=== PATIENT | female | born 1940 | race Caucasian/White ===

== ENCOUNTER → 2017-09-11 | Outpatient (CLI) | payer OTHER ==
[~2017-09-11] MED LIST: CHOL100010 PO; COEN1CAP PO; CYAN500T13 PO; HYDR12.55 PO; KRIL1CAP3 PO; LEVO112T2 PO; LOSA1TAB38 PO
--- NOTE | 2017-09-11 15:31 | MAMMOGRAPHY REPORT ---
BILATERAL DIGITAL SCREENING MAMMOGRAM TOMOSYNTHESIS WITH CAD: 09/11/2017 CLINICAL HISTORY: Routine screening examination. History of bilateral breast augmentation. TECHNIQUE: Bilateral CC and MLO views of the breasts with and without implant displacement views wer e obtained. Tomosynthesis was also performed on the implant displaced views. Current study was also evaluated with a Computer Aided Detection (CAD) system. COMPARISON: Comparison is made to exams dated: 08/09/2016 mammogram, 07/22/2015 mammogram, 07/14/2014 mammogram, 07/03/2013 mammogram, 07/02/2012 ultrasound, and 07/02/2012 mammogram - [facility]. BREAST COMPOSITION: The tissue of both breasts is heterogeneously dense, which may obscure small mas ses. FINDINGS: Bilateral subglandular silicone implants are stable comparing to prior exams. There are a few benign rim calcifications in the breasts. No new suspicious mass, architectural distortion or cl uster of microcalcifications is seen. IMPRESSION: ACR BI-RADS CATEGORY 1: NEGATIVE There is no mammographic evidence of malignancy. A 1 year screening mammogram is recommended. The pa tient will receive written notification of the results. Approximately 10% of breast cancers are not detected with mammography. A negative mammographic report should not delay biopsy if a clinically suggestive mass is present. Raegan Chilel M.D. ay/:09/11/2017 14:14:52 Legal Billing Specialist: Elsi PATTERSON)(Evon), [facility] letter sent: Normal 1/2 BI-RADS Code: ACR BI-RADS Category 1: Negative
== END | disposition home or self-care (01) ==
LOC: C.MAMM 11:59
PROVIDERS: ATTEND Internal Medicine
DX: Z12.31 Encounter for screening mammogram for malignant neoplasm of breast (principal)

== ENCOUNTER 2024-06-26 06:56 | Observation (INO) ==
[2024-06-26 07:50] LABS: Hematocrit (blood only) 34.2 % (37.0-47.0); Hemoglobin 11.8 g/dl (12.0-16.0); Mean Corpuscular Hemoglobin 31.5 pg (25.0-34.0); Mean Corpuscular Hgb Conc 34.5 g/dL (32.0-36.0); Mean Corpuscular Volume 91.2 fL (80.0-100.0); Platelet Count 159 K/uL (130-400); RDW Coefficient of Variation 17.7 % (11.5-14.5); RDW Standard Deviation 58.8 fL (36.4-46.3); Red Blood Count 3.75 M/uL (4.20-5.40); White Blood Count 5.41 K/ul (4.8-10.8)
[2024-06-26] MEDS: SODIUM CHLORIDE 0.9% 500 ML IV ONE (07:53)
[2024-06-26 07:55] LABS: Albumin Globulin Ratio 1.6 (0.9-2); Albumin Level 3.6 gm/dl (3.4-5.0); BUN Creatinine Ratio 18.1 (10-20); Bilirubin,Total 0.7 mg/dl (0.2-1.0); Calcium 8.2 mg/dl (8.6-10.3); Creatinine Clr Calc Pharmacy 37.7 ml/min; Globulin 2.3 gm/dl (2.5-4.0); Magnesium 1.9 mg/dl (1.7-2.4); Total Protein 5.9 gm/dl (6.0-8.3)
--- NOTE | 2024-06-26 07:55 | CT Scan Report ---
CT head/brain wo con CLINICAL HISTORY: fall, weak, dizzy Technique: Contiguous axial CT images of the head were acquired from the base of the skull to the maksim myles without intravenous contrast administration. Images were viewed in brain, subdural and [facility] Automated dose lowering techniques and/or adjustment according to patient size were utilized for this exam. Comparison: Comparison is made to CT head 08/13/2016 Findings: Areas of decreased attenuation are present in the periventricular and subcortical white matter bilate rally consistent with small vessel ischemic disease. Generalized cerebral atrophy with commensurate e nlargement of the ventricles, sulci, and cisterns is also present. There is no acute intracranial hem orrhage or evidence of acute territorial infarction. No shift of the midline structures, mass effect, or extra-axial abnormalities are shown. Atherosclerotic calcifications are present in the intracran ial segments of the internal carotid arteries. Imaged portions of the paranasal sinuses and mastoid air cells are clear. The orbits appear normal. There are no acute fractures of the calvaria or scalp swelling. Impression: No acute intracranial hemorrhage, no evidence of acute territorial infarction or other acute intracra nial disease process. ACT 112: Negative or not required by law. Electronically signed by: Phuc Odonnell M.D. 06/26/2024 7:54 AM
--- NOTE | 2024-06-26 07:55 | XRay Report ---
XR chest 1V portable CLINICAL HISTORY: weakness TECHNIQUE: Single frontal radiograph of the chest was obtained. Comparison: Comparison is made to chest radiograph 04/21/2024 FINDINGS: A port catheter is seen. The cardiomediastinal silhouette is normal. The lungs are clear. No evidence of pleural effusion or pneumothorax. IMPRESSION: No acute chest disease. ACT 112: Negative or not required by law. Electronically signed by: Phuc Odonnell M.D. 06/26/2024 7:54 AM
[2024-06-26 08:01] LABS: Troponin I High Sensitivity 12.7 pg/ml (0-14)
--- NOTE | 2024-06-26 08:01 | Emergency Department Note ---
Impression & Plan UTI (urinary tract infection), Triple negative breast cancer, Fall, Status post chemotherapy ED Provider Note CHIEF COMPLAINT: Fall, weakness HISTORY OF PRESENT ILLNESS: This 83-year-old female patient past medical history of breast cancer, hypothyroidism, hypertension presents to the emergency department with complaints of a fall. Patient's states that she was incontinent of urine earlier today. He went into the other room to speak on the phone as there was no front desk receptionist in their bedroom. He heard a crash and realized that the patient had gotten out of bed and tried to go to the bathroom without him. There was urine on the floor and he imagines that the patient slept on the wet surface. She did have a chemo treatment yesterday. There is no fever recently. She has had a decreased oral intake but no vomiting or diarrhea. states "this is the worst" that she has had it since chemo began. He does not believe that the patient hit his head although he did not witness the fall. She is not currently on blood thinners. REVIEW OF SYSTEMS: A review of systems was performed with positives and pertinent negatives listed in the history of present illness. 10 systems were reviewed and are otherwise negative. ALLERGIES: see below MEDICATIONS: see below PMH: see below SOCIAL HISTORY: see below DDx: Dehydration, metabolic abnormality, UTI, PE, mechanical fall, seizure, intracranial mass, intracranial hemorrhage among others. PHYSICAL EXAM: Vital signs reviewed. General: elderly, somewhat ill-appearing 83-year-old female, in no significant distress. HEENT: No scleral icterus, PERRLA, neck supple. dry mucous membranes Cardiovascular: Regular rate and rhythm, no extra sounds. Pulmonary: Clear to auscultation bilaterally, normal work of breathing. Abdomen: Soft, nontender, nondistended, positive bowel sounds. Musculoskeletal: Atraumatic, no peripheral edema. Nontender to palpation over the cervical, thoracic and lumbar spine. No pain to pelvic rocking Neurologic: Patient somnolent but awake. Answers questions appropriately. speech is clear. Skin: Warm, dry, no rash EMERGENCY DEPARTMENT COURSE/MDM: this patient was evaluated and appeared to be in no significant distress. IV access was obtained and laboratory work was drawn. The patient was placed on the cardiac exercise physiologist and noted to be in a normal sinus rhythm. IV access was obtained and laboratory work was drawn. patient was hydrated with normal saline solution due to tachycardia. Laboratory work is fairly reassuring, magnesium and potassium are within normal range. UA is positive for infection. The patient was medicated with IV ceftriaxone. CT imaging of the head was performed and reveals no evidence of acute intracranial abnormality.Given the patient's weakness and fall with no UTI, patient's case was discussed with the hospitalist service was agreed to evaluate the patient for admission and further management. Patient's was at the bedside and made aware of the plan and agreed. MONITORING: An order for cardiac monitoring was placed and the patient is noted to be in a sinus tachycardia at 110 beats per minute. RADIOLOGY: chest x-ray to my interpretation reveals no evidence of focal lung consolidation or failure. HEAD CT: Impression: No acute intracranial hemorrhage, no evidence of acute territorial infarction or other acute intracranial disease process. EKG: To my interpretation reveals a sinus tachycardia at 111 bpm, normal ST segments, no evidence of acute ischemia. QTc of 435. DISPOSITION: Admission Past Med/Surg History Problem List (Updated 06/26/24 @ 15:03 by Lima Conner MD) Status post chemotherapy (Acute) Tachycardia Transaminitis Fall (Acute) UTI (urinary tract infection) (Acute) Port-A-Cath in place (04/21/24) Insertion Access Port with Fluroscopy(Not Applicable) - Mateo Mahan, DO Breast implant status Arthritis Triple negative breast cancer (Acute) Encounter for pre-operative examination Hypertension (Chronic) Hypothyroid (Chronic) Medical History Triple negative breast cancer Left Arthritis Hypothyroid Hypertension Cervical spinal stenosis s/p steroid injection Surgical History S/P tubal ligation H/O liposuction of abdomen Hx of bilateral cataract extraction (03/2023) History of ankle surgery screw in right ankle Hx of colonoscopy 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 knee replacement (2002) History of breast mammoplasty (1979) b/l Family History Mother Breast cancer Diabetes Hypertension Grandmother (Maternal) Breast cancer Father Colorectal cancer Hypertension Grandmother (Paternal) Colorectal cancer Grandfather (Paternal) Lung cancer Other No family history of adverse response to anesthesia Denies family history of Ovarian cancer Prostate cancer Myocardial infarction Social History Smoking Status: Never smoker Second Hand Exposure: No; Do You Dip or Chew Tobacco: No; Hx Alcohol Use: Yes (Socially ) Alcohol type: wine Alcohol Intake Frequency: Monthly or Less Hx Substance Use: No Preferred Language: Arabic Communication Ability: Effective Molecular Physicist Required: No Beliefs That Will Affect Care: Zoroastrian Zoroastrian Beliefs: moravian marital status: Current Living Situation: Spouse current occupational status: retired How many Children do You have: 3 Feels Safe at Home: Yes Childhood Exposure to Second-Hand Smoke: No Diet: regular during the past year weight has: remained stable Dental Care, Regularly: Yes Physical Activity Frequency: 3-4 Times per Week Seatbelt Use: always Sunscreen Use: Yes Assistive Devices: None Allergies Allergies Allergy/AdvReac Type Severity Reaction Status Date / Time lisinopril AdvReac Mild cough Verified 05/26/24 09:23 surgical glue AdvReac Uncoded 05/26/24 09:30 Home Meds Home Medications Medication Instructions Recorded Confirmed cholecalciferol (vitamin D3) 25 25 mcg PO QAM 02/14/23 06/26/24 mcg (1,000 unit) tablet (Vitamin D3) coenzyme Q10 200 mg capsule (Co 200 mg PO QAM 02/14/23 06/26/24 Q-10) levothyroxine 112 mcg tablet 112 mcg PO QAM 02/14/23 06/26/24 losartan 100 mg tablet 100 mg PO QAM 02/14/23 06/26/24 multivitamin 1 tab PO QAM 02/14/23 06/26/24 acetaminophen 500 mg tablet 500 mg PO Q8H PRN Pain 04/17/24 06/26/24 ibuprofen 200 mg tablet 200 mg PO Q6H PRN Pain 04/17/24 06/26/24 dexamethasone 4 mg tablet 4 mg PO DIRECTED 06/26/24 06/26/24 diphenoxylate-atropine 2.5 1 tab PO QID PRN Diarrhea 06/26/24 06/26/24 mg-0.025 mg tablet ondansetron 8 mg disintegrating 8 mg PO Q8H PRN n/v 06/26/24 06/26/24 tablet potassium chloride 20 mEq 40 meq PO DAILY 06/26/24 06/26/24 tablet,extended release prednisone 20 mg tablet 60 mg PO DAILY 06/26/24 06/26/24 prochlorperazine maleate 10 mg 10 mg PO Q6H PRN n/v 06/26/24 06/26/24 tablet Previous Rx's Medication Instructions Recorded dicyclomine 20 mg tablet 20 mg PO QID PRN abdominal pain 05/26/24 #60 tabs Results & Data (ED) Vital Signs Vital Signs - 24 hr 06/26/24 07:07 06/26/24 07:07 06/26/24 07:21 Temperature 37.5 C Temperature Source Oral Oral Pulse Rate 110 H 109 H Pulse Rate from SpO2 Sensor 109 H Respiratory Rate 15 Respiratory Effort / Characteristics Non-Labored Spontaneous Respiratory Depth Normal Blood Pressure 137/83 Blood Pressure Mean 101 Pulse Oximetry 90 90 Oxygen Delivery Method Room Air Sepsis Recent Fever Within 48 Hours No Sepsis New/Unexplained Change in Mental Status N/A Sepsis Action Taken by Nursing No Action Required 06/26/24 07:25 06/26/24 07:54 06/26/24 08:18 Temperature Temperature Source Pulse Rate 102 H 101 H Pulse Rate from SpO2 Sensor 103 H Respiratory Rate Respiratory Effort / Characteristics Respiratory Depth Blood Pressure Blood Pressure Mean Pulse Oximetry 90 91 Oxygen Delivery Method Room Air Sepsis Recent Fever Within 48 Hours Sepsis New/Unexplained Change in Mental Status Sepsis Action Taken by Nursing 06/26/24 08:18 06/26/24 08:30 06/26/24 08:30 Temperature Temperature Source Pulse Rate 101 H Pulse Rate from SpO2 Sensor 101 H Respiratory Rate Respiratory Effort / Characteristics Respiratory Depth Blood Pressure 127/78 127/78 Blood Pressure Mean 88 88 Pulse Oximetry 94 Oxygen Delivery Method Sepsis Recent Fever Within 48 Hours Sepsis New/Unexplained Change in Mental Status Sepsis Action Taken by Nursing 06/26/24 08:30 06/26/24 08:54 06/26/24 08:57 Temperature Temperature Source Pulse Rate 102 H Pulse Rate from SpO2 Sensor 102 H 100 H 99 H Respiratory Rate 24 Respiratory Effort / Characteristics Respiratory Depth Blood Pressure Blood Pressure Mean Pulse Oximetry 95 95 94 Oxygen Delivery Method Sepsis Recent Fever Within 48 Hours Sepsis New/Unexplained Change in Mental Status Sepsis Action Taken by Nursing 06/26/24 09:00 06/26/24 09:00 06/26/24 09:00 Temperature Temperature Source Pulse Rate Pulse Rate from SpO2 Sensor Respiratory Rate Respiratory Effort / Characteristics Respiratory Depth Blood Pressure 122/78 122/78 122/78 Blood Pressure Mean 95 95 95 Pulse Oximetry Oxygen Delivery Method Sepsis Recent Fever Within 48 Hours Sepsis New/Unexplained Change in Mental Status Sepsis Action Taken by Nursing 06/26/24 09:03 06/26/24 09:18 06/26/24 09:21 Temperature Temperature Source Pulse Rate Pulse Rate from SpO2 Sensor 101 H 101 H 100 H Respiratory Rate Respiratory Effort / Characteristics Respiratory Depth Blood Pressure Blood Pressure Mean Pulse Oximetry 95 95 95 Oxygen Delivery Method Sepsis Recent Fever Within 48 Hours Sepsis New/Unexplained Change in Mental Status Sepsis Action Taken by Nursing 06/26/24 09:24 06/26/24 09:30 06/26/24 09:30 Temperature Temperature Source Pulse Rate Pulse Rate from SpO2 Sensor 101 H Respiratory Rate Respiratory Effort / Characteristics Respiratory Depth Blood Pressure 130/77 130/77 Blood Pressure Mean 95 95 Pulse Oximetry 96 Oxygen Delivery Method Sepsis Recent Fever Within 48 Hours Sepsis New/Unexplained Change in Mental Status Sepsis Action Taken by [facility] Medications Current Medication List: was personally reviewed by me Laboratory Data Attestation: I reviewed the patient's lab results. 06/26/24 07:24 06/26/24 07:24 Lab Results 06/26/24 06/26/24 Range/Units 07:24 08:45 WBC 5.41 (4.8-10.8) K/ul RBC 3.75 L (4.20-5.40) M/uL Hgb 11.8 L (12.0-16.0) g/dl Hct 34.2 L (37.0-47.0) % MCV 91.2 (80.0-100.0) fL MCH 31.5 (25.0-34.0) pg MCHC 34.5 (32.0-36.0) g/dL RDW Std Deviation 58.8 H (36.4-46.3) fL RDW Coeff of Herminio 17.7 H (11.5-14.5) % Plt Count 159 (130-400) K/uL MPV 10.0 (9.4-12.4) fL Immature Gran % (Auto) 1.3 % Neut % (Auto) 89.8 % Lymph % (Auto) 7.0 % Morrill % (Auto) 1.5 % Eos % (Auto) 0.0 % Baso % (Auto) 0.4 % Neut # (Auto) 4.86 (1.40-6.50) K/uL Lymph # (Auto) 0.38 L (1.20-3.40) K/uL Morrill # (Auto) 0.08 L (0.11-0.59) K/uL Eos # (Auto) 0.00 (0.00-0.50) K/uL Baso # (Auto) 0.02 (0.00-0.20) K/uL Immature Gran # (Auto) 0.07 (0.01-0.20) K/uL Toxic Vacuolation 1+ Polychromasia 1+ Tear Drop Cells 1+ Sodium 135 L (136-145) mmol/L Potassium 4.0 (3.5-5.1) mmol/L Chloride 101 (98-107) mmol/L Carbon Dioxide 25 (21-32) mmol/L Anion Gap 9 (3-11) BUN 19 (6-23) mg/dl Creatinine 1.05 (0.6-1.2) mg/dl Est Cr Clr Drug Dosing 37.7 ml/min eGFR 53.38 BUN/Creatinine Ratio 18.1 (10-20) Glucose 122 H (70-99(Fasting)) mg/dl Calcium 8.2 L (8.6-10.3) mg/dl Magnesium 1.9 (1.7-2.4) mg/dl Total Bilirubin 0.7 (0.2-1.0) mg/dl AST 174 H (13-39) U/L ALT 223 H (7-52) U/L Alkaline Phosphatase 207 H (34-104) U/L Troponin I High Sens 12.7 (0-14) pg/ml Total Protein 5.9 L (6.0-8.3) gm/dl Albumin 3.6 (3.4-5.0) gm/dl Globulin 2.3 L (2.5-4.0) gm/dl Albumin/Globulin Ratio 1.6 (0.9-2) TSH 7.858 H (0.300-4.500) uIu/ml Free T4 1.05 (0.61-1.60) ng/dl Urine Color Yellow Urine Appearance Cloudy A (Clear) Urine pH 7.5 (4.5-7.5) Ur Specific [place] 1.015 (1.000-1.030) Urine Protein 2+ H (Negative) Urine Glucose (UA) Negative (Negative) Urine Ketones Negative (Negative) Urine Blood Trace H (Negative) Urine Nitrite Positive A (Negative) Urine Bilirubin Negative (Negative) Urine Urobilinogen Negative (Negative) Ur Leukocyte Esterase 2+ H (Negative) Urine WBC (Auto) >50 H (0-5) /hpf Urine RBC (Auto) 3-5 H (0-2) /hpf U Hyaline Cast (Auto) 0-2 (0-2) /lpf U Epithel Cells (Auto) 0-2 (0-2) /hpf Urine Bacteria (Auto) 4+ H (None Seen) Administered Medications Discontinued Medications Sodium Chloride (Nss) 500 mls @ 999 mls/hr IV .Q31M ONE Stop: 06/26/24 08:06 Last Infusion: 06/26/24 09:24 Dose: Infused Documented By: Admin: 06/26/24 07:53 Dose: 999 mls/hr Documented By: KORIN Ceftriaxone Sodium (Rocephin) 1,000 mg in 50 mls @ 100 mls/hr IV NOW STA Stop: 06/26/24 09:42 Last Infusion: 06/26/24 10:09 Dose: Infused Documented By: Admin: 06/26/24 09:24 Dose: 100 mls/hr Documented By: KORIN Imaging Data Radiologist's Impression: Chest X-Ray 06/26/24 07:17 XR chest 1V portable CLINICAL HISTORY: weakness TECHNIQUE: Single frontal radiograph of the chest was obtained. Comparison: Comparison is made to chest radiograph 04/21/2024 FINDINGS: A port catheter is seen. The cardiomediastinal silhouette is normal. The lungs are clear. No evidence of pleural effusion or pneumothorax. IMPRESSION: No acute chest disease. ACT 112: Negative or not required by law. Electronically signed by: Phuc Odonnell M.D. 06/26/2024 7:[address] 06/26/24 07:18 CT head/brain wo con CLINICAL HISTORY: fall, weak, dizzy Technique: Contiguous axial CT images of the head were acquired from the base of the skull to the vertex without intravenous contrast administration. Images were viewed in brain, subdural and bone windows. Automated dose lowering techniques and/or adjustment according to patient size were utilized for this exam. Comparison: Comparison is made to CT head 08/13/2016 Findings: Areas of decreased attenuation are present in the periventricular and subcortical white matter bilaterally consistent with small vessel ischemic disease. Generalized cerebral atrophy with commensurate enlargement of the ventricles, sulci, and cisterns is also present. There is no acute intracranial hemorrhage or evidence of acute territorial infarction. No shift of the midline structures, mass effect, or extra-axial abnormalities are shown. Atherosclerotic calcifications are present in the intracranial segments of the internal carotid arteries. Imaged portions of the paranasal sinuses and mastoid air cells are clear. The orbits appear normal. There are no acute fractures of the calvaria or scalp swelling. Impression: No acute intracranial hemorrhage, no evidence of acute territorial infarction or other acute intracranial disease process. ACT 112: Negative or not required by law. Electronically signed by: Phuc Odonnell M.D. 06/26/2024 7:54 AM Discharge Plan Visit Data Chief Complaint: Fall Stated Complaint: FALL, WEAKNESS, CONFUSION ED Provider: Lima Conner Discharge Problem: UTI (urinary tract infection), Triple negative breast cancer, Fall, Status post chemotherapy Patient Disposition: Admitted As Inpatient Discharge Instructions Interventions: ED Discharge Assessment Last Done: 06/26/24 14:34 Discharge Problem: UTI (urinary tract infection) Qualifiers: Urinary tract infection type: acute cystitis Hematuria presence: without hematuria Qualified Code(s): N30.00 - Acute cystitis without hematuria Fall Qualifiers: Encounter type: initial encounter Qualified Code(s): W19.XXXA - Unspecified fall, initial encounter
[2024-06-26 08:11] LABS: Thyroid Stimulating Hormone 7.858 uIu/ml (0.300-4.500)
[2024-06-26 08:25] LABS: Basophils # (auto) 0.02 K/uL (0.00-0.20); Basophils % (auto) 0.4 %; Immature Granulocytes # (auto) 0.07 K/uL (0.01-0.20); Immature Granulocytes % (auto) 1.3 %; Lymphocytes # (auto) 0.38 K/uL (1.20-3.40); Monocytes # (auto) 0.08 K/uL (0.11-0.59); Monocytes % (auto) 1.5 %; Neutrophils # (auto) 4.86 K/uL (1.40-6.50); Neutrophils % (auto) 89.8 %; Polychromasia 1+; Tear Drop Cells 1+; Toxic Vacuolation 1+
[2024-06-26 08:46] LABS: T4 Free Thyroxine 1.05 ng/dl (0.61-1.60)
[2024-06-26 09:03] LABS: Appearance Urine Cloudy (Clear); Bacteria Urine Automated 4+ (None Seen); Bilirubin Urine Negative (Negative); Blood Urine Trace (Negative); Cast Urine Automated 0-2 /lpf (0-2); Color Urine Yellow; Epithelial Cell Urine Auto 0-2 /hpf (0-2); Glucose Urine UA Negative (Negative); Ketones Urine Negative (Negative); Leukocyte Esterase Urine 2+ (Negative); Nitrite Urine Positive (Negative); Protein Urine 2+ (Negative); Specific Gravity Urine 1.015 (1.000-1.030); Urobilinogen Urine Negative (Negative); WBC Urine Automated >50 /hpf (0-5); pH Urine 7.5 (4.5-7.5)
[2024-06-26] MEDS: cefTRIAXone SODIUM 1,000 MG/50 ML BAG IV STA (09:24)
--- NOTE | 2024-06-26 10:39 | History & Physical Report ---
Date of Service June 26, 2024 Assessment & Plan (1) UTI (urinary tract infection): Plan: Patient sustained a ground-level fall on the morning of 06/26; new onset urinary continence UA positive on arrival No leukocytosis; afebrile; however patient is currently undergoing chemotherapy; immunocompromised status No prior UCx available Rocephin 1000 mg IV q24h In the setting of IVF national shortage, will encourage p.o. fluid intake Follow current UCx A.m. CBC, CMP (2) Fall: Plan: On 06/26; no LOC or head strike; not on blood thinners Unlikely syncope, but if concern for arrythmias Head CT without acute findings on arrival Only new medication, prednisone 60mg daily, was started on 06/18 for upset stomach; unclear if contributory Patient reports she was planning to start taper; will dose reduce to prednisone 40mg daily Weakness due to chemotherapy also likely contributory Patient is a high fall risk, and gets up to use the bathroom approximately every hour (per nursing) Communication order: Bed alarm Orthostatic vitals ordered, pending PT/OT evaluations appreciated Fall precautions (3) Triple negative breast cancer: Plan: Newly diagnosed; dx in 02/2024 Started chemotherapy on 04/30/2024; follows with the CCP Carboplatin, paclitaxel, and pembrolizumab; most recent chemo was on 06/25 (just prior to fall) (4) Transaminitis: Plan: Elevated on arrival Patient denies hx of prior liver issues; ? secondary to chemotherapy Liver ultrasound ordered, pending Trend CMP (5) Tachycardia: Plan: HR 111 bpm on arrival Suspect secondary to #1; ?dehydration Troponin WNL Clinically, patient denies chest pain, chest palpitations, or SOB Continuous telemetry monitoring (6) Hypothyroid: Plan: TSH elevated on arrival; however, improving from prior Free T4 WNL Prior PCP notes from May recommended increasing levothyroxine if uncontrolled TSH or not improving Continue to monitor with TSH/Free T4 follow up outpatient (7) Port-A-Cath in place: (8) Hypertension: Plan Disposition: Admit to MedSurg telemetry DNR/DNI Regular diet VTE PPx: High risk given cancer/chemo; despite patient's high fall risk, will place on heparin 5000u BID starting the evening of 06/26 History of Present Illness Chief Complaint: Fall Primary Care Provider: DO Agustin Johnsony is an 83-year-old female with PMH of triple negative breast cancer, HTN, hypothyroidism, and arthritis. Patient came in on the morning of 06/26 from home for a ground-level fall. Her (Martha) is at the bedside and provides most the history. Has reports that the patient fell at approximately 0500 in the bathroom. This was an unwitnessed fall; patient denied head strike at the time. No LOC. Not on blood thinners. She also had an episode of new onset urinary incontinence in the bathroom, and believes she might of fallen off the toilet onto the ground. Patient is currently undergoing chemotherapy for her triple negative breast cancer, and last had chemotherapy yesterday. reports that she has had a "downward slide" since the chemo yesterday. No fevers reported at home. However, the patient does endorse significant dizziness/lightheadedness when she is up on her feet as well as balance issues. She denies any syncope at home. Patient denies history of UTIs, and currently denies any burning with urination, but reports that the urinary continence is new for her. No PMH of DVT/PE. Patient reports that she did not take her regular morning medications today. Patient manages her own medicine at home. Only recent change was that she was started on prednisone last week for nausea, and reports she has been taking 60 mg daily, but is currently planning to taper down to 40 mg daily. 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 Patient is tachycardic at 102 bpm at time of admission; vitals otherwise stable. ED course: NSS 500 mL IV Rocephin 1000 mg IV ROS: Patient endorses dizziness/lightheadedness with walking, ambulatory dysfunction, feeling off balance, diarrhea (which attributes to regular medications for chemo), increased urinary frequency, and new onset urinary continence. Patient denies fever, chills, night sweats, headache, chest pain, chest palpitations, heart racing, SOB, cough, abdominal pain, N/V, burning with urination, dysuria, blood in the urine or stool, or numbness or tingling in the arms or legs. Per nursing staff, patient has been getting up to go to the bathroom every hour or so. Allergies Allergy/AdvReac Type Severity Reaction Status Date / Time lisinopril AdvReac Mild cough Verified 05/26/24 09:23 moxifloxacin AdvReac Unknown Unknown Verified 06/26/24 14:50 surgical glue AdvReac Unknown Unknown Uncoded 06/26/24 14:50 Home Medications Medication Instructions Recorded Confirmed Type cholecalciferol (vitamin D3) 25 25 mcg PO QAM 02/14/23 06/26/24 History mcg (1,000 unit) tablet (Vitamin D3) coenzyme Q10 200 mg capsule (Co 200 mg PO QAM 02/14/23 06/26/24 History Q-10) levothyroxine 112 mcg tablet 112 mcg PO QAM 02/14/23 06/26/24 History losartan 100 mg tablet 100 mg PO QAM 02/14/23 06/26/24 History multivitamin 1 tab PO QAM 02/14/23 06/26/24 History acetaminophen 500 mg tablet 500 mg PO Q8H PRN Pain 04/17/24 06/26/24 History ibuprofen 200 mg tablet 200 mg PO Q6H PRN Pain 04/17/24 06/26/24 History dicyclomine 20 mg tablet 20 mg PO QID PRN abdominal pain 05/26/24 06/26/24 Rx #60 tabs dexamethasone 4 mg tablet 4 mg PO DIRECTED 06/26/24 06/26/24 History diphenoxylate-atropine 2.5 1 tab PO QID PRN Diarrhea 06/26/24 06/26/24 History mg-0.025 mg tablet ondansetron 8 mg disintegrating 8 mg PO Q8H PRN n/v 06/26/24 06/26/24 History tablet potassium chloride 20 mEq 40 meq PO DAILY 06/26/24 06/26/24 History tablet,extended release prednisone 20 mg tablet 60 mg PO DAILY 06/26/24 06/26/24 History prochlorperazine maleate 10 mg 10 mg PO Q6H PRN n/v 06/26/24 06/26/24 History tablet Past Med/Surg History Problem List (Updated 06/26/24 @ 15:03 by Lima Conner MD) Status post chemotherapy (Acute) Tachycardia Transaminitis Fall (Acute) UTI (urinary tract infection) (Acute) Port-A-Cath in place (04/21/24) Insertion Access Port with Fluroscopy(Not Applicable) - Mateo Mahan, DO Breast implant status Arthritis Triple negative breast cancer (Acute) Encounter for pre-operative examination Hypertension (Chronic) Hypothyroid (Chronic) Medical History Triple negative breast cancer Left Arthritis Hypothyroid Hypertension Cervical spinal stenosis s/p steroid injection Surgical History S/P tubal ligation H/O liposuction of abdomen Hx of bilateral cataract extraction (03/2023) History of ankle surgery screw in right ankle Hx of colonoscopy 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 knee replacement (2002) History of breast mammoplasty (1979) b/l Family History Mother Breast cancer Diabetes Hypertension Grandmother (Maternal) Breast cancer Father Colorectal cancer Hypertension Grandmother (Paternal) Colorectal cancer Grandfather (Paternal) Lung cancer Other No family history of adverse response to anesthesia Denies family history of Ovarian cancer Prostate cancer Myocardial infarction Social History Smoking Status: Never smoker Second Hand Exposure: No; Do You Dip or Chew Tobacco: No; Hx Alcohol Use: Yes (Socially ) Alcohol type: wine Alcohol Intake Frequency: Monthly or Less Hx Substance Use: No Preferred Language: Italian Communication Ability: Effective Masonry Instructor Required: No Beliefs That Will Affect Care: Adventist Adventist Beliefs: moravian marital status: Current Living Situation: Spouse current occupational status: retired How many Children do You have: 3 Feels Safe at Home: Yes Childhood Exposure to Second-Hand Smoke: No Diet: regular during the past year weight has: remained stable Dental Care, Regularly: Yes Physical Activity Frequency: 3-4 Times per Week Seatbelt Use: always Sunscreen Use: Yes Assistive Devices: None Review of Systems Review of Systems: See HPI above Physical Exam Physical Exam: General: Patient is in mild distress; she reports she needs to go to the bathroom and is eager to get up; unsteady on her feet; at bedside; non- toxic appearing; well-nourished; cooperative; SpO2 96% on RA HEENT: normocephalic, atraumatic; no scleral icterus; PERRLA; vision and hearing grossly intact Neck: supple; trachea midline Skin: warm, dry without signs of tenting; no cyanosis; no rashes, bruising, lesions, or erythema noted CV: Port in place without signs of drainage or infection; chest wall NTP; RR, tachycardic around 110bpm; S1/S2 normal; no murmurs/rubs/gallops; pulses intact and symmetric at radial, DP, and PT Lungs: no acute respiratory distress; symmetrical chest wall expansion; clear breath sounds across all lung prater w/o adventitious sounds; no wheezing ABD: Soft, NTP; BS present; no rebound/guarding; no distention : Negative suprapubic tenderness Back: Negative CVA tenderness bilaterally MSK: no tics or fasciculations; no edema noted in the LEs b/l, nonerythematous Neuro: A&Ox3; normal mood and affect; fluent speech; no focal deficits; sensation grossly intact and symmetric in the lower extremities bilaterally Results & Data Results & Data Vital Signs (Past 12 Hours) Vital Signs Temp Pulse Resp BP Pulse Ox O2 Del Method 06/26/24 09:30 130/77 06/26/24 09:30 130/77 06/26/24 09:24 96 06/26/24 09:21 95 06/26/24 09:18 95 06/26/24 09:03 95 06/26/24 09:00 122/78 06/26/24 09:00 122/78 06/26/24 09:00 122/78 06/26/24 08:57 94 06/26/24 08:54 95 06/26/24 08:30 102 H 24 95 06/26/24 08:30 127/78 06/26/24 08:30 127/78 06/26/24 08:18 101 H 94 06/26/24 08:18 101 H 06/26/24 07:54 102 H 91 06/26/24 07:25 90 Room Air 06/26/24 07:21 109 H 90 06/26/24 07:07 37.5 C 110 H 15 137/83 90 Room Air Laboratory Results Abnormal lab results 06/26/24 06/26/24 Range/Units 07:24 08:45 RBC 3.75 L (4.20-5.40) M/uL Hgb 11.8 L (12.0-16.0) g/dl Hct 34.2 L (37.0-47.0) % RDW Std Deviation 58.8 H (36.4-46.3) fL RDW Coeff of Herminio 17.7 H (11.5-14.5) % Lymph # (Auto) 0.38 L (1.20-3.40) K/uL [place] # (Auto) 0.08 L (0.11-0.59) K/uL Sodium 135 L (136-145) mmol/L Glucose 122 H (70-99(Fasting)) mg/dl Calcium 8.2 L (8.6-10.3) mg/dl AST 174 H (13-39) U/L ALT 223 H (7-52) U/L Alkaline Phosphatase 207 H (34-104) U/L Total Protein 5.9 L (6.0-8.3) gm/dl Globulin 2.3 L (2.5-4.0) gm/dl TSH 7.858 H (0.300-4.500) uIu/ml Urine Appearance Cloudy A (Clear) Urine Protein 2+ H (Negative) Urine Blood Trace H (Negative) Urine Nitrite Positive A (Negative) Ur Leukocyte Esterase 2+ H (Negative) Urine WBC (Auto) >50 H (0-5) /hpf Urine RBC (Auto) 3-5 H (0-2) /hpf Urine Bacteria (Auto) 4+ H (None Seen) Diagnostic Findings Chest X-Ray 06/26/24 07:17 XR chest 1V portable CLINICAL HISTORY: weakness TECHNIQUE: Single frontal radiograph of the chest was obtained. Comparison: Comparison is made to chest radiograph 04/21/2024 FINDINGS: A port catheter is seen. The cardiomediastinal silhouette is normal. The lungs are clear. No evidence of pleural effusion or pneumothorax. IMPRESSION: No acute chest disease. ACT 112: Negative or not required by law. Electronically signed by: Phuc Odonnell M.D. 06/26/2024 7:[address] 06/26/24 07:18 CT head/brain wo con CLINICAL HISTORY: fall, weak, dizzy Technique: Contiguous axial CT images of the head were acquired from the base of the skull to the vertex without intravenous contrast administration. Images were viewed in brain, subdural and bone windows. Automated dose lowering techniques and/or adjustment according to patient size were utilized for this exam. Comparison: Comparison is made to CT head 08/13/2016 Findings: Areas of decreased attenuation are present in the periventricular and subcortical white matter bilaterally consistent with small vessel ischemic disease. Generalized cerebral atrophy with commensurate enlargement of the ventricles, sulci, and cisterns is also present. There is no acute intracranial hemorrhage or evidence of acute territorial infarction. No shift of the midline structures, mass effect, or extra-axial abnormalities are shown. Atherosclerotic calcifications are present in the intracranial segments of the internal carotid arteries. Imaged portions of the paranasal sinuses and mastoid air cells are clear. The orbits appear normal. There are no acute fractures of the calvaria or scalp swelling. Impression: No acute intracranial hemorrhage, no evidence of acute territorial infarction or other acute intracranial disease process. ACT 112: Negative or not required by law. Electronically signed by: Phuc Odonnell M.D. 06/26/2024 7:54 AM ECG Additional Comments: ECG revealed sinus tachycardia at 111 bpm; QTc 435 Code Status & VTE Plan Code Status DNR/DNI (Discussed with both patient and patient's in the room) VTE Prophylaxis Plan VTE Prophylaxis will be ordered: Yes Supervising Physician Co-Signing Physician Notes Patient seen and examined, chart reviewed, case discussed with Robby Pfeiffer and I agree with the assessment and plan as above except as otherwise noted Labs and images reviewed PG Care Time/CCT Total # of Minutes Spent Total Time Spent with Patient: Total time spent is greater than 50% in coordination of care (as documented) at patient's floor/unit and/or counseling patient: Coding [place] [address] INT INP/OBS CARE 3/75MIN Patient Type Established Medical Decision Making High Complexity Diagnoses UTI (urinary tract infection) N39.0 Fall W19.XXXA Triple negative breast cancer C50.919 Transaminitis R74.01 Tachycardia R00.0 Hypothyroid E03.9 Port-A-Cath in place Z95.828 Hypertension I10
--- NOTE | 2024-06-26 12:51 | Ultrasound Report ---
ULTRASOUND RIGHT UPPER QUADRANT ABDOMEN CLINICAL HISTORY: Elevated hepatic transaminases. COMPARISON STUDY: PET CT dated 04/28/2024. TECHNIQUE: Real-time, grayscale, and color flow sonography of the right upper quadrant of the abdomen was performed. Images are reviewed in the transverse and longitudinal planes. FINDINGS: Liver: The liver is normal in size and echotexture. There is no intrahepatic biliary ductal dilatatio n. The main portal vein is patent. Gallbladder: The gallbladder is normal in appearance. No gallstones are identified. There is no gallb ladder wall thickening or pericholecystic fluid. A sonographic Madrid's sign is reportedly absent. Th e common bile duct measures up to 0.5 cm in diameter. Pancreas: Visualized portions of the pancreatic head and body are normal in appearance. Right kidney: Survey images of the right kidney demonstrate normal size and echotexture. There is no hydronephrosis. Renal sinus cysts are incidentally noted. Ascites: None. IMPRESSION: 1. The liver is normal in size and echotexture. 2. No gallstones are seen. ACT 112: Negative or not required by law. Electronically signed by: Dony Figueredo M.D. 06/26/2024 12:50 PM
[2024-06-26] MEDS ORDERED: ONDANSETRON INJ 2 MG/ML 2 ML VIAL IV PRN (14:47)
[2024-06-26] MEDS ORDERED: DICYCLOMINE HCL 20 MG TAB PO PRN (14:47)
[2024-06-26] MEDS ORDERED: PROCHLORPERAZINE MALEATE 10 MG TAB PO PRN (14:47)
[2024-06-26] MEDS: predniSONE 20 MG TAB PO SCH (16:07)
[2024-06-26] MEDS: LOSARTAN POTASSIUM 50 MG TAB PO SCH (16:08)
[2024-06-26] MEDS: LEVOTHYROXINE SODIUM 112 MCG TABLET PO SCH (16:08)
[2024-06-26] MEDS: POTASSIUM CHLORIDE CRTAB 20 MEQ TABCR PO SCH (16:11)
[2024-06-26] MEDS: HEPARIN SOD 5,000 UNIT/0.5 ML VIAL SQ SCH (20:06)
[2024-06-26] MEDS: FILGRASTIM 480 MCG/1.6 ML VIAL SQ ONE (20:27)
--- NOTE | 2024-06-26 23:53 | Electrocardiogram Report ---
Test Reason : Blood Pressure : */* mmHG Vent. Rate : 111 BPM Atrial Rate : 111 BPM P-R Int : 132 ms QRS Dur : 82 ms QT Int : 320 ms P-R-T Axes : 34 -47 21 degrees QTcB Int : 435 ms Sinus tachycardia Left anterior fascicular block Poor R wave progression, consider anterior MS vs. lead placement vs. LVH Abnormal ECG When compared with ECG of 17-Apr-2024 12:18, No significant change was found Confirmed by Michael Cevallos ([id number]) on 06/26/2024 11:53:11 PM Referred By: REFERRED SELF Confirmed By: Michael Cevallos
[2024-06-27 07:13] LABS: Albumin Globulin Ratio 1.4 (0.9-2); Albumin Level 3.3 gm/dl (3.4-5.0); BUN Creatinine Ratio 23.6 (10-20); Bilirubin,Total 0.8 mg/dl (0.2-1.0); Calcium 8.4 mg/dl (8.6-10.3); Creatinine Clr Calc Pharmacy 43.6 ml/min; Globulin 2.4 gm/dl (2.5-4.0); Potassium 4.2 mmol/L (3.5-5.1); Total Protein 5.7 gm/dl (6.0-8.3)
[2024-06-27] MEDS: ACETAMINOPHEN 500 MG TAB PO PRN (07:27)
--- NOTE | 2024-06-27 07:47 | Hospitalist Progress Note ---
Date of Service June 27, 2024 Assessment & Plan (1) Status post chemotherapy: (2) Transaminitis: (3) Fall: (4) UTI (urinary tract infection): (5) Arthritis: (6) Triple negative breast cancer: Plan 83-year-old female with PMH of triple negative breast cancer, HTN, hypoth yroidism, and arthritis. UTI (urinary tract infection): Dehydration Patient sustained a ground-level fall on the morning of 06/26; new onset urinary continence No leukocytosis; afebrile; however patient is currently undergoing chemotherapy; immunocompromised status UA +nitrite, WBC UCx pending Rocephin 1000 mg IV q24h Lactate ringer 125 ml.hr x1 bag 1,000 ml in the setting of poor PO intake Encourage po intake A.m. CBC, CMP Fall: On 06/26; no LOC or head strike; not on blood thinners Unlikely syncope Head CT without acute findings on arrival Only new medication, prednisone 60mg daily, was started on 06/18 for upset stomach; unclear if contributory Patient reports she was planning to start taper; will dose reduce to prednisone 40mg daily Weakness due to chemotherapy also likely contributory Patient is a high fall risk, and gets up to use the bathroom approximately every hour (per nursing) Communication order: Bed alarm Orthostatic vitals ordered, pending PT/OT evaluations appreciated Fall precautions Triple negative breast cancer: Newly diagnosed; dx in 02/2024 Started chemotherapy on 04/30/2024; follows with the CCP Carboplatin, paclitaxel, and pembrolizumab; most recent chemo was on 06/25 (just prior to fall) Transaminitis: Elevated on arrival- trending down Patient denies hx of prior liver issues; ? secondary to chemotherapy Liver ultrasound normal Trend CMP Tachycardia - resolved HR 111 bpm on arrival Suspect secondary to dehydration Troponin WNL Clinically, patient denies chest pain, chest palpitations, or SOB Continuous telemetry monitoring Hypothyroid: TSH elevated on arrival; however, improving from prior Free T4 WNL Prior PCP notes from May recommended increasing levothyroxine if uncontrolled TSH or not improving Continue to monitor with TSH/Free T4 follow up outpatient (7) Port-A-Cath in place: (8) Hypertension: Plan Disposition: Admit to MedSurg telemetry DNR/DNI Regular diet VTE PPx: High risk given cancer/chemo; despite patient's high fall risk, will place on heparin 5000u BID starting the evening of 06/26 Admission and Anticipated Discharge Date Admission Date: June 26, 2024 Supervising Physician Co-Signing Physician Notes I personally examined the patient and verified all hernández points of history and exam, discussed case, and agree with decision making with Dr Abhijeet Lee doing better feeling better eating somewhat better. updated to the best of my ability vitals noted nad heent nc at mmm breathing unlabored no accessory muscles good effort skin no rashes no pallor or icterus weakness/dehydration/post-chemotherapy/UTI - supportive care, IV fluids, encourage PO intake, abx, time Subjective Seen this morning. Found alert and oriented x3. at bedside. and patient states improvement since last night. She refers only incontinence. Currently on prednisone dick by onco. She refers not eating as much due to chemotherapy associated side effects. Denied any headaches, lightheadedness, SOB, chest pain or palpitations Review of Systems Review of Systems: as per HPI Physical Exam Physical Exam: General:Alert and oriented x 3non-toxic appearing; well-nourished; cooperative CV: Port in place without signs of drainage or infection; chest wall NTP; RRR, no murmus, no edema Lungs: no acute respiratory distress; symmetrical chest wall expansion; clear breath sounds across all lung prater w/o adventitious sounds; no wheezing ABD: Soft, NTP; BS present; no rebound/guarding; no distention Neuro: A&Ox3; normal mood and affect; fluent speech; no focal deficits; sensation grossly intact and symmetric in the lower extremities bilaterally Results & Data Results & Data Vital Signs (Past 12 Hours) Vital Signs Temp Pulse Pulse BP Pulse Ox O2 Del Method 06/27/24 07:35 36.7 C 90 95/58 L 92 Room Air 06/27/24 07:09 85 06/26/24 22:15 95 H 06/26/24 21:00 Room Air Resident Activity Tracking Resident Involvement: Resident Care Provided Care Provided: Adult Hospital Medicine (3) Fall Encounter type: initial encounter Qualified Code(s): W19.XXXA - Unspecified fall, initial encounter (4) UTI (urinary tract infection) Hematuria presence: without hematuria Urinary tract infection type: acute cystitis Qualified Code(s): N30.00 - Acute cystitis without hematuria
[2024-06-27 08:55] LABS: Hematocrit (blood only) 33.7 % (37.0-47.0); Hemoglobin 11.6 g/dl (12.0-16.0); Mean Corpuscular Hemoglobin 31.4 pg (25.0-34.0); Mean Corpuscular Hgb Conc 34.4 g/dL (32.0-36.0); Mean Corpuscular Volume 91.3 fL (80.0-100.0); Mean Platelet Volume 10.3 fL (9.4-12.4); Platelet Count 109 K/uL (130-400); RDW Coefficient of Variation 17.5 % (11.5-14.5); RDW Standard Deviation 58.6 fL (36.4-46.3); Red Blood Count 3.69 M/uL (4.20-5.40); White Blood Count 18.87 K/ul (4.8-10.8)
[2024-06-27 09:07] LABS: Basophils # (auto) 0.04 K/uL (0.00-0.20); Basophils % (auto) 0.2 %; Eosinophils # (auto) 0.03 K/uL (0.00-0.50); Eosinophils % (auto) 0.2 %; Immature Granulocytes # (auto) 0.97 K/uL (0.01-0.20); Immature Granulocytes % (auto) 5.1 %; Lymphocytes # (auto) 1.81 K/uL (1.20-3.40); Lymphocytes % (auto) 9.6 %; Monocytes # (auto) 0.27 K/uL (0.11-0.59); Monocytes % (auto) 1.4 %; Neutrophils # (auto) 15.75 K/uL (1.40-6.50); Neutrophils % (auto) 83.5 %; RBC Morphology Unremarkable
[2024-06-27] MEDS: cefTRIAXone SODIUM 1,000 MG/50 ML BAG IV SCH (09:34)
[2024-06-27] MEDS: LACTATED RINGER'S 1,000 ML IV SCH (11:18)
[2024-06-27] MEDS ORDERED: HEPARIN 100 UNIT/ML 5ML FLUSH FLUSH PRN (14:14)
--- NOTE | 2024-06-27 15:59 | Billing Data ---
Date of Service June 27, 2024 Coding Level of Care Code 57560 SUB INP/OBS CARE
[2024-06-28] MEDS ORDERED: POLYETHYLENE (MIRALAX) 17 GM PACK PO ONE (07:56)
[2024-06-28 08:17] LABS: Albumin Globulin Ratio 1.5 (0.9-2); Albumin Level 3.1 gm/dl (3.4-5.0); BUN Creatinine Ratio 27.5 (10-20); Bilirubin,Total 0.5 mg/dl (0.2-1.0); Calcium 8.3 mg/dl (8.6-10.3); Creatinine Clr Calc Pharmacy 56.2 ml/min; Globulin 2.1 gm/dl (2.5-4.0); Total Protein 5.2 gm/dl (6.0-8.3)
[2024-06-28 08:19] VITALS: BP 136/81; PULSE 97; RESP 16; TEMP 97.3; O2SAT 95
[2024-06-28] MEDS: POLYETHYLENE (MIRALAX) 17 GM PACK PO ONE (08:26)
[2024-06-28 09:54] LABS: Basophils # (auto) 0.06 K/uL (0.00-0.20); Basophils % (auto) 0.4 %; Eosinophils # (auto) 0.02 K/uL (0.00-0.50); Eosinophils % (auto) 0.1 %; Hemoglobin 10.5 g/dl (12.0-16.0); Immature Granulocytes # (auto) 0.33 K/uL (0.01-0.20); Immature Granulocytes % (auto) 2.2 %; Lymphocytes # (auto) 1.97 K/uL (1.20-3.40); Lymphocytes % (auto) 13.1 %; Mean Corpuscular Hemoglobin 31.5 pg (25.0-34.0); Mean Corpuscular Hgb Conc 33.9 g/dL (32.0-36.0); Mean Corpuscular Volume 93.1 fL (80.0-100.0); Mean Platelet Volume 10.9 fL (9.4-12.4); Monocytes # (auto) 0.11 K/uL (0.11-0.59); Monocytes % (auto) 0.7 %; Neutrophils # (auto) 12.53 K/uL (1.40-6.50); Neutrophils % (auto) 83.5 %; Platelet Count 97 K/uL (130-400); RBC Morphology Unremarkable; RDW Coefficient of Variation 17.6 % (11.5-14.5); Red Blood Count 3.33 M/uL (4.20-5.40); White Blood Count 15.02 K/ul (4.8-10.8)
--- NOTE | 2024-06-28 11:58 | Discharge Summary ---
Date of Service June 28, 2024 Admission HPI Per Admitting Provider Galilea is an 83-year-old female with PMH of triple negative breast cancer, HTN, hypothyroidism, and arthritis. Patient came in on the morning of 06/26 from home for a ground-level fall. Her (Martha) is at the bedside and provides most the history. Has reports that the patient fell at approximately 0500 in the bathroom. This was an unwitnessed fall; patient denied head strike at the time. No LOC. Not on blood thinners. She also had an episode of new onset urinary incontinence in the bathroom, and believes she might of fallen off the toilet onto the ground. Patient is currently undergoing chemotherapy for her triple negative breast cancer, and last had chemotherapy yesterday. reports that she has had a "downward slide" since the chemo yesterday. No fevers reported at home. However, the patient does endorse significant dizziness/lightheadedness when she is up on her feet as well as balance issues. She denies any syncope at home. Patient denies history of UTIs, and currently denies any burning with urination, but reports that the urinary continence is new for her. No PMH of DVT/PE. Patient reports that she did not take her regular morning medications today. Patient manages her own medicine at home. Only recent change was that she was started on prednisone last week for nausea, and reports she has been taking 60 mg daily, but is currently planning to taper down to 40 mg daily. 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 Patient is tachycardic at 102 bpm at time of admission; vitals otherwise stable. ED course: NSS 500 mL IV Rocephin 1000 mg IV ROS: Patient endorses dizziness/lightheadedness with walking, ambulatory dysfunction, feeling off balance, diarrhea (which attributes to regular medications for chemo), increased urinary frequency, and new onset urinary continence. Patient denies fever, chills, night sweats, headache, chest pain, chest palpitations, heart racing, SOB, cough, abdominal pain, N/V, burning with urinat ion, dysuria, blood in the urine or stool, or numbness or tingling in the arms or legs. Per nursing staff, patient has been getting up to go to the bathroom every hour or so. Principal Diagnosis Complicated UTI Discharge Exam General:Alert and oriented x 3non-toxic appearing; well-nourished; cooperative CV: Port in place without signs of drainage or infection; chest wall NTP; RRR, no murmus, no edema Lungs: no acute respiratory distress; symmetrical chest wall expansion; clear breath sounds across all lung prater w/o adventitious sounds; no wheezing ABD: Soft, NTP; BS present; no rebound/guarding; no distention Neuro: A&Ox3; normal mood and affect; fluent speech; no focal deficits; sensati on grossly intact and symmetric in the lower extremities bilaterally Discharge Data Allergies Allergy/AdvReac Type Severity Reaction Status Date / Time lisinopril AdvReac Mild cough Verified 05/26/24 09:23 moxifloxacin AdvReac Unknown Unknown Verified 06/26/24 14:50 Consultations 06/26/24 10:37 ED Decision to Admit Stat Ordered Studies 06/26/24 07:18 CT head/brain wo con Stat 06/26/24 11:17 US liver Urgent Hospital Course (1) Status post chemotherapy: (2) Transaminitis: (3) Fall: (4) UTI (urinary tract infection): (5) Arthritis: (6) Triple negative breast cancer: Plan 83-year-old female with PMH of triple negative breast cancer, HTN, hypothyroidism, and arthritis. Complicated UTI (urinary tract infection): Dehydration/ Weakness Patient sustained a ground-level fall on the morning of 06/26; new onset urinary continence No leukocytosis; afebrile; however patient is currently undergoing chemotherapy; immunocompromised status UA +nitrite, WBC UCx: Klebsiella s/p Rocephin 1000 mg IV q24h Sent home with Cefpodoxime 200 mg twice a day for 7 days Fall: On 06/26; no LOC or head strike; not on blood thinners Unlikely syncope Head CT without acute findings on arrival Only new medication, prednisone 60mg daily, was started on 06/18 for upset stomach; unclear if contributory Patient reports she was planning to start taper; will dose reduce to prednisone 40mg daily Weakness due to chemotherapy also likely contributory PT/OT eval Triple negative breast cancer: Newly diagnosed; dx in 02/2024 Started chemotherapy on 04/30/2024; follows with the CCP Carboplatin, paclitaxel, and pembrolizumab; most recent chemo was on 06/25 (just prior to fall) Transaminitis: Elevated on arrival- trending down now Patient denies hx of prior liver issues; ? secondary to chemotherapy Liver ultrasound normal Follow up with cmp in a week Tachycardia - resolved Hypothyroid: TSH elevated on arrival; however, improving from prior Free T4 WNL Prior PCP notes from May recommended increasing levothyroxine if uncontrolled TSH or not improving Continue to monitor with TSH/Free T4 follow up outpatient Total Time Total Time Spent Total Time Spent (In Minutes): <30 Discharge Plan Discharge Items Patient Disposition: Home - Self-Care Reason For Visit: UTI, FALL Discharge Diagnosis: UTI Dehydration Activity: Per Instructions section Non-emergency contact: Primary Care Provider Call non-emergency contact if: you have any medication questions and your symptoms worsen Follow-up/Referrals: Delmi Buchanan DO [Primary Care Provider] - Diet: Regular Addtl Attending Provider Instructions: You were in the hospital due to a fall, you were found with an urinary tract infection. Symptoms resolved after IV antibiotic and IV fluids (bolus) You will be discharge home with an antibiotic: * cefpodoxime 200 mg: take one tab twice a day for 7 days Continue using the Miralax twice a day until a bowl movement. You can increase it to 3 times a day and decreased as needed. Pending Studies at Discharge: No Stand-Alone Forms: My [facility] [employer], Smoking Cessation Medications and DC Order Prescriptions: New cefpodoxime 200 mg tablet 200 mg PO BID 7 Days Qty: 14 0RF Rx Instructions: must administer with a meal/food Continued dicyclomine 20 mg tablet 20 mg PO QID PRN (Reason: abdominal pain) Qty: 60 0RF Rx Instructions: per pharmacy last picked up in May multivitamin Tablet 1 tab PO QAM Rx Instructions: otc unable to verify losartan 100 mg Tablet 100 mg PO QAM levothyroxine 112 mcg Tablet 112 mcg PO QAM coenzyme Q10 [Co Q-10] 200 mg Capsule 200 mg PO QAM Rx Instructions: otc unable to verify cholecalciferol (vitamin D3) [Vitamin D3] 25 mcg (1,000 unit) Tablet 25 mcg PO QAM Rx Instructions: otc unable to verify acetaminophen 500 mg Tablet 500 mg PO Q8H PRN (Reason: Pain) Rx Instructions: otc unable to verify ibuprofen 200 mg Tablet 200 mg PO Q6H PRN (Reason: Pain) Rx Instructions: otc unable to verify prednisone 20 mg tablet 60 mg PO DAILY Rx Instructions: picked up jun 18 supply diphenoxylate-atropine 2.5-0.025 mg tablet 1 tab PO QID PRN (Reason: Diarrhea) prochlorperazine maleate 10 mg tablet 10 mg PO Q6H PRN (Reason: n/v) Rx Instructions: last picked up in april ondansetron 8 mg tablet,disintegrating 8 mg PO Q8H PRN (Reason: n/v) Rx Instructions: last picked up in april 2024 dexamethasone 4 mg tablet 4 mg PO DIRECTED Rx Instructions: 12 and 6 hours prior to pacitaxel potassium chloride 20 mEq tablet extended release 40 meq PO DAILY Rx Instructions: last picked up 06/03 refill too soon. Discharge Orders: Discharge Order (Routine); Ordered 06/28/24 Ordered By: Maury Aranda/Other Patient Handouts: Cefpodoxime Oral Tablet Admission Data Admit Date/Time: 06/26/24 11:06 Attending Provider: Tray Steele Admit Provider: Selina Han Primary Care Provider: Delmi Buchanan Other Providers: Selina Han Other Interventions: Discharge Summary Assessment (RN) Last Done: 06/28/24 13:15 Supervising Physician Co-Signing Physician Notes I personally examined the patient and verified all hernández points of history and exam, discussed case, and agree with decision making with Dr Abhijeet Lee feels good feels up to going home, does have headache vitals noted nad heent nc at mmm breathing unlabored no accessory muscles good effort skin no rashes no pallor or icterus, L>R suboccipitals high tone/tender/decreased ROM - inhibitory pressure - pt tolerated well and noted some improvement in headache weakness/dehydration/post-chemotherapy/UTI -improved with supportive care, IV fluid, abx, time -- now doing better safe/stable for home. tension headache - OMT - and ice packs once home safe/stable for home, otherwise as above Resident Activity Tracking Resident Involvement: Resident Care Provided Care Provided: Adult Hospital Medicine
--- NOTE | 2024-06-28 15:05 | Billing Data ---
Date of Service June 28, 2024 Coding Level of Care Code 62158 IN/OBS DISCH 30 MIN/LESS
== END 2024-06-28 14:02 | disposition home or self-care (01) | DRG 690 ==
LOC: ED 06:56 → INTOOBSV 11:06 → SUATTDRO 11:06 → EDINP 11:06 → 2W 14:34

== ENCOUNTER 2024-07-03 07:27 | Observation (INO) ==
[2024-07-03 08:07] LABS: Basophils # (auto) 0.01 K/uL (0.00-0.20); Basophils % (auto) 0.4 %; Hematocrit (blood only) 31.7 % (37.0-47.0); Hemoglobin 10.9 g/dl (12.0-16.0); Immature Granulocytes # (auto) 0.09 K/uL (0.01-0.20); Immature Granulocytes % (auto) 3.6 %; Lymphocytes # (auto) 0.39 K/uL (1.20-3.40); Lymphocytes % (auto) 15.5 %; Mean Corpuscular Hemoglobin 31.1 pg (25.0-34.0); Mean Corpuscular Hgb Conc 34.4 g/dL (32.0-36.0); Mean Corpuscular Volume 90.6 fL (80.0-100.0); Mean Platelet Volume 10.2 fL (9.4-12.4); Monocytes # (auto) 0.02 K/uL (0.11-0.59); Monocytes % (auto) 0.8 %; Neutrophils # (auto) 2.01 K/uL (1.40-6.50); Neutrophils % (auto) 79.7 %; Platelet Count 134 K/uL (130-400); RDW Coefficient of Variation 17.2 % (11.5-14.5); RDW Standard Deviation 56.1 fL (36.4-46.3); White Blood Count 2.52 K/ul (4.8-10.8)
[2024-07-03] MEDS: SODIUM CHLORIDE 0.9% 1,000 ML IV SCH ×2 (08:11→13:36)
[2024-07-03] MEDS: ACETAMINOPHEN 1,000 MG/100 ML VIAL IV STA (08:12)
[2024-07-03 08:22] LABS: Albumin Level 3.3 gm/dl (3.4-5.0); BUN Creatinine Ratio 18.9 (10-20); Bilirubin Direct 0.2 mg/dl (0-0.2); Bilirubin,Total 0.8 mg/dl (0.2-1.0); Calcium 8.2 mg/dl (8.6-10.3); Creatinine Clr Calc Pharmacy 45.4 ml/min; Magnesium 1.8 mg/dl (1.7-2.4); Potassium 3.6 mmol/L (3.5-5.1); Total Protein 5.5 gm/dl (6.0-8.3)
[2024-07-03 08:29] LABS: Troponin I High Sensitivity 13.7 pg/ml (0-14)
--- NOTE | 2024-07-03 08:47 | XRay Report ---
XR chest 1V portable HISTORY: 83 years-old Female Sepsis COMPARISON: 06/26/2024 TECHNIQUE: AP view of the chest FINDINGS: Heart size is upper limits of normal in size. Calcified bilateral breast implants. Unchanged right he midiaphragmatic elevation. Right subclavian Vurgos-s-Ldol catheter is stable. Mild chronic interstiti al coarsening. Pulmonary vascular congestion. Chronic interstitial coarsening of the lung bases. No p neumothorax or pleural effusion. Bones appear grossly intact. IMPRESSION: 1. Cardiomegaly with pulmonary vascular congestion. 2. Chronic interstitial coarsening of the lung bases. No airspace consolidation typical for pneumonia . ACT 112: Negative or not required by law. The above report was generated using voice recognition software. It may contain grammatical, syntax o r spelling errors. Electronically signed by: Brian Castellano M.D. 07/03/2024 8:13 AM
[2024-07-03] MEDS: PIPERACILLIN/TAZOBACTAM 4.5 GM/100 ML BAG IV ONE (09:12)
[2024-07-03 09:33] LABS: Appearance Urine Clear (Clear); Bacteria Urine Automated None Seen (None Seen); Bilirubin Urine Negative (Negative); Blood Urine Negative (Negative); Cast Urine Automated 0-2 /lpf (0-2); Color Urine Yellow; Epithelial Cell Urine Auto 0-2 /hpf (0-2); Glucose Urine UA Negative (Negative); Ketones Urine Negative (Negative); Leukocyte Esterase Urine Negative (Negative); Nitrite Urine Negative (Negative); Protein Urine 1+ (Negative); RBC Urine Automated 0-2 /hpf (0-2); Specific Gravity Urine 1.013 (1.000-1.030); Urobilinogen Urine Negative (Negative); WBC Urine Automated 0-5 /hpf (0-5)
--- NOTE | 2024-07-03 10:21 | History & Physical Report ---
Date of Service July 03, 2024 Assessment & Plan (1) Volume depletion: Plan: He IV fluids ordered. Monitor intake and output (2) Steroid dependence: Plan: Intravenous hydrocortisone for now. Eventual switch back to oral prednisone therapy (3) Tachycardia: Plan: Sinus mechanism. Mild. Telemetry. IV fluid resuscitation (4) Status post chemotherapy: Plan: For breast cancer. Last chemotherapy was yesterday, July 02. Consult oncology (5) Metabolic encephalopathy: Plan: Symptomatic care. Volume resuscitation. Continue antibiotic coverage for recently diagnosed Klebsiella UTI (6) Hypothyroid: Plan: Stable. Continue current thyroid replacement (7) Hypertension: Plan: Stable. Will resume losartan tomorrowJuly 04 Plan To be determined. OT and PT assessments will be requested when appropriate History of Present Illness Chief Complaint: Weakness, dehydration Primary Care Provider: Delmi Buchanan DO 83-year-old female undergoing chemotherapy for breast cancer. She just completed her most recent chemotherapy treatment yesterday, July 02. She is steroid-dependent. She was recently treated and discharged on oral antibiotic for Klebsiella UTI. She states she has not missed any oral antibiotic dosage. The Klebsiella was not a resistant organism. She currently has no fever. She is mildly tachycardic. She appears to be volume depleted. No hematochezia or melena. No fever or rigors. EKG reveals mild sinus tachycardia. Chest x-ray is clear. Allergies Allergy/AdvReac Type Severity Reaction Status Date / Time lisinopril AdvReac Mild cough Verified 06/30/24 09:55 moxifloxacin AdvReac Unknown Unknown Verified 06/30/24 09:55 Home Medications Medication Instructions Recorded Confirmed Type cholecalciferol (vitamin D3) 25 25 mcg PO QAM 02/14/23 06/30/24 History mcg (1,000 unit) tablet (Vitamin D3) coenzyme Q10 200 mg capsule (Co 200 mg PO QAM 02/14/23 06/30/24 History Q-10) levothyroxine 112 mcg tablet 112 mcg PO QAM 02/14/23 06/30/24 History losartan 100 mg tablet 100 mg PO QAM 02/14/23 06/30/24 History multivitamin 1 tab PO QAM 02/14/23 06/30/24 History acetaminophen 500 mg tablet 500 mg PO Q8H PRN Pain 04/17/24 06/30/24 History ibuprofen 200 mg tablet 200 mg PO Q6H PRN Pain 04/17/24 06/30/24 History dicyclomine 20 mg tablet 20 mg PO QID PRN abdominal pain 05/26/24 06/30/24 Rx #60 tabs dexamethasone 4 mg tablet 4 mg PO DIRECTED 06/26/24 06/30/24 History diphenoxylate-atropine 2.5 1 tab PO QID PRN Diarrhea 06/26/24 06/30/24 History mg-0.025 mg tablet ondansetron 8 mg disintegrating 8 mg PO Q8H PRN n/v 06/26/24 06/30/24 History tablet potassium chloride 20 mEq 40 meq PO DAILY 06/26/24 06/30/24 History tablet,extended release prednisone 20 mg tablet 60 mg PO DAILY 06/26/24 06/30/24 History prochlorperazine maleate 10 mg 10 mg PO Q6H PRN n/v 06/26/24 06/30/24 History tablet cefpodoxime 200 mg tablet 200 mg PO BID 7 days #14 tabs 06/28/24 06/30/24 Rx Past Med/Surg History Problem List (Updated 07/03/24 @ 10:20 by Kalen Ospina MD) Steroid dependence Metabolic encephalopathy Volume depletion Status post chemotherapy (Acute) Tachycardia Transaminitis Fall (Acute) UTI (urinary tract infection) (Acute) Port-A-Cath in place (04/21/24) Insertion Access Port with Fluroscopy(Not Applicable) - Mateo Mahan, DO Breast implant status Arthritis Triple negative breast cancer (Acute) Encounter for pre-operative examination Hypertension (Chronic) Hypothyroid (Chronic) Medical History Triple negative breast cancer Left Arthritis Hypothyroid Hypertension Cervical spinal stenosis s/p steroid injection Surgical History S/P tubal ligation H/O liposuction of abdomen Hx of bilateral cataract extraction (03/2023) History of ankle surgery screw in right ankle Hx of colonoscopy 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 knee replacement (2002) History of breast mammoplasty (1979) b/l Family History Mother Breast cancer Diabetes Hypertension Grandmother (Maternal) Breast cancer Father Colorectal cancer Hypertension Grandmother (Paternal) Colorectal cancer Grandfather (Paternal) Lung cancer Other No family history of adverse response to anesthesia Denies family history of Ovarian cancer Prostate cancer Myocardial infarction Social History Smoking Status: Never smoker Second Hand Exposure: Yes; Do You Dip or Chew Tobacco: No; Hx Alcohol Use: Yes Alcohol type: beer and wine Alcohol Intake Frequency: Monthly or Less Hx Substance Use: Yes Last Used Substance: Unknown Preferred Language: Tajik Communication Ability: Effective Customer Engineer Required: No Beliefs That Will Affect Care: Islam Islam Beliefs: Restorationist goes to [facility] every saturday. marital status: Current Living Situation: Spouse current occupational status: retired How many Children do You have: 3 Feels Safe at Home: Yes Childhood Exposure to Second-Hand Smoke: No Diet: regular during the past year weight has: remained stable Dental Care, Regularly: Yes Physical Activity Frequency: 3-4 Times per Week Seatbelt Use: always Sunscreen Use: Yes Assistive Devices: None Review of Systems 2 Review of Systems: Constitutionalno fever or chills ENTno blurred vision, no double vision, no epistaxis, no sore throat Respiratoryno cough, no wheezing, no shortness of breath Cardiacno palpitations, no chest pain, no syncope Liza nausea, vomiting, diarrhea, melena, hematochezia. Poor oral intake however Abraham continues to have urinary frequency. No gross hematuria Musculoskeletalno joint pain, no muscle tenderness Skinno bruising, no rashes, no pruritus Neurogeneralized weakness. No focal deficits Psychno depression, no anxiety. noticed her mental status was not at baseline however Physical Exam 2 Physical Exam: General-alert and oriented x3, no fever, no chills HEENT-head atraumatic and normocephalic, pupils equal and reactive to light, extraocular muscles intact. Xerostomia noted Neck-no lymphadenopathy or thyromegaly, trachea midline Chest-clear to auscultation. No rales, wheezing or rhonchi Cardiac-regular rate and rhythm, normal S1 and S2 Abdomen-normal bowel sounds, no hepatosplenomegaly Extremities-no cyanosis, clubbing, or edema Neuro-cranial nerves II through XII intact, motor and sensory function within normal limits, strength symmetrical with generalized weakness, no focal deficits Psych-normal affect, normal mood Results & Data Results & Data Vital Signs (Past 12 Hours) Vital Signs Temp Pulse Pulse Resp BP BP Pulse Ox 07/03/24 09:36 36.5 C 105 H 18 145/86 H 94 07/03/24 09:20 36.8 C 102 H 18 102/76 93 07/03/24 09:14 37 C 98 H 20 133/106 H 93 07/03/24 08:00 93 07/03/24 07:45 112 H 07/03/24 07:34 37.5 C 112 H 22 157/93 H 92 O2 Del Method 07/03/24 09:36 Room Air 07/03/24 09:20 Room Air 07/03/24 09:14 Room Air 07/03/24 08:00 Room Air 07/03/24 07:45 07/03/24 07:34 Room Air Laboratory Results 07/03/24 07:50 07/03/24 07:50 Code Status & VTE Plan Code Status DNR/DNI PG Care Time/CCT Total # of Minutes Spent Total Time Spent with Patient: Total time spent is greater than 50% in coordination of care (as documented) at patient's floor/unit and/or counseling patient: Coding Level of Care Code 04636 INT INP/OBS CARE 3/75MIN Diagnoses Volume depletion E86.9 Steroid dependence F19.20 Tachycardia R00.0 Status post chemotherapy Z92.21 Metabolic encephalopathy G93.41 Hypothyroid E03.9 Hypertension I10
--- NOTE | 2024-07-03 12:22 | Electrocardiogram Report ---
Test Reason : Blood Pressure : */* mmHG Vent. Rate : 121 BPM Atrial Rate : * BPM P-R Int : * ms QRS Dur : 80 ms QT Int : 442 ms P-R-T Axes : * -55 37 degrees QTcB Int : 627 ms Sinus tachycardia with occasional Premature ventricular complexes Left anterior fascicular block Poor R wave progression, consider anterior PR vs. lead placement vs. LVH Abnormal ECG Confirmed by Mark Yanez ([id number]) on 07/03/2024 12:22:00 PM Referred By: Confirmed By: Mark Yanez
[2024-07-03] MEDS ORDERED: ONDANSETRON INJ 2 MG/ML 2 ML VIAL IV PRN (13:15)
[2024-07-03] MEDS ORDERED: HYDROCORTISONE SOD SUCCINATE 100 MG/2 ML VIAL IV SCH (13:15)
--- NOTE | 2024-07-03 13:35 | Oncology Consultation ---
Date of Consultation July 03, 2024 Assessment & Plan (1) Breast cancer: (2) Metabolic encephalopathy: Plan -Given presentation x 2 with altered mental status I am concerned that symptoms may be related to chemotherapy. Ideally, would recommend obtaining brain MRI to evaluate for PRES/other acute process. However patient would prefer not to have MRI. Previously obtained CT head without contrast was unremarkable. Given my concern that her symptoms are due to chemotherapy, recommend suspending neoadjuvant systemic therapy. Will obtain PET/CT for restaging and if this shows good response to treatment, plan to proceed with surgery after which decision will be made on adjuvant chemotherapy treatment depending on pathology. Patient and agreed with this plan. -She missed a dose of G-CSF yesterday. 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 Will consider steroid taper next week when she is back IN CLINIC to see me. Thank you for this consult. Oncology will follow while patient is in the hospital. Please feel free to call if you have any further questions. History of Present Illness Reason for Consultation: recent chemo for breast cancer Attending Physician: Kalen Ospina MD History of Present Illness Patient with stage III breast cancer currently on neoadjuvant chemotherapy who is currently on treatment with carboplatin, paclitaxel (previously also on pembrolizumab). She had presented with altered mental status thought to be due to dehydration. Of note same thing happened last week Where she was unresponsive, complained of headaches but this was thought to be due to UTI. At that time, she was treated with IV antibiotics prior to being transitioned to oral antibiotics. Prior to her treatment with carboplatin/paclitaxel on 07/02/2024, urinalysis was obtained which revealed resolution of UTI. She presented to the ER again on 07/03/2024 a day after chemotherapy with similar complaints Allergies Allergy/AdvReac Type Severity Reaction Status Date / Time lisinopril AdvReac Mild cough Verified 06/30/24 09:55 moxifloxacin AdvReac Unknown Unknown Verified 06/30/24 09:55 Home Medications Medication Instructions Recorded Confirmed Type cholecalciferol (vitamin D3) 25 25 mcg PO QAM 02/14/23 07/03/24 History mcg (1,000 unit) tablet (Vitamin D3) coenzyme Q10 200 mg capsule (Co 200 mg PO QAM 02/14/23 07/03/24 History Q-10) levothyroxine 112 mcg tablet 112 mcg PO QAM 02/14/23 07/03/24 History losartan 100 mg tablet 100 mg PO QAM 02/14/23 07/03/24 History multivitamin 1 tab PO QAM 02/14/23 07/03/24 History acetaminophen 500 mg tablet 500 mg PO Q8H PRN Pain 04/17/24 07/03/24 History ibuprofen 200 mg tablet 200 mg PO Q6H PRN Pain 04/17/24 07/03/24 History dicyclomine 20 mg tablet 20 mg PO QID PRN abdominal pain 05/26/24 07/03/24 Rx #60 tabs dexamethasone 4 mg tablet 4 mg PO DIRECTED 06/26/24 07/03/24 History diphenoxylate-atropine 2.5 1 tab PO QID PRN Diarrhea 06/26/24 07/03/24 History mg-0.025 mg tablet ondansetron 8 mg disintegrating 8 mg PO Q8H PRN n/v 06/26/24 07/03/24 History tablet potassium chloride 20 mEq 40 meq PO DAILY 06/26/24 07/03/24 History tablet,extended release prednisone 20 mg tablet 60 mg PO DAILY 06/26/24 07/03/24 History prochlorperazine maleate 10 mg 10 mg PO Q6H PRN n/v 06/26/24 07/03/24 History tablet cefpodoxime 200 mg tablet 200 mg PO BID 7 days #14 tabs 06/28/24 07/03/24 Rx Patient History Medical History Triple negative breast cancer Left Arthritis Hypothyroid Hypertension Cervical spinal stenosis s/p steroid injection Surgical History S/P tubal ligation H/O liposuction of abdomen Hx of bilateral cataract extraction (03/2023) History of ankle surgery screw in right ankle Hx of colonoscopy 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 knee replacement (2002) History of breast mammoplasty (1979) b/l Family History Mother Breast cancer Diabetes Hypertension Grandmother (Maternal) Breast cancer Father Colorectal cancer Hypertension Grandmother (Paternal) Colorectal cancer Grandfather (Paternal) Lung cancer Other No family history of adverse response to anesthesia Denies family history of Ovarian cancer Prostate cancer Myocardial infarction Social History Smoking Status: Never smoker Second Hand Exposure: Yes; Do You Dip or Chew Tobacco: No; Hx Alcohol Use: Yes Alcohol type: beer and wine Alcohol Intake Frequency: Monthly or Less Hx Substance Use: Yes Last Used Substance: Unknown Preferred Language: Belarusian Communication Ability: Effective Clinical Psychologist Licensed Required: No Beliefs That Will Affect Care: [employer] Beliefs: Baptism marital status: Current Living Situation: Spouse current occupational status: retired How many Children do You have: 3 Other Information That Helps Us Care for You: No Feels Safe at Home: Yes Safety Concerns: Feels Safe At This Time Childhood Exposure to Second-Hand Smoke: No Diet: regular during the past year weight has: remained stable Dental Care, Regularly: Yes Physical Activity Frequency: 3-4 Times per Week Seatbelt Use: always Sunscreen Use: Yes Assistive Devices: None Results & Data Vital Signs (Past 12 Hours) Vital Signs Temp Pulse Pulse Resp BP BP Pulse Ox 07/03/24 12:51 36.7 C 74 18 116/72 96 07/03/24 11:40 37.1 C 100 H 19 130/67 97 07/03/24 11:37 98 H 07/03/24 10:50 37 C 100 H 20 120/79 94 07/03/24 09:36 36.5 C 105 H 18 145/86 H 94 07/03/24 09:20 36.8 C 102 H 18 102/76 93 07/03/24 09:14 37 C 98 H 20 133/106 H 93 07/03/24 08:00 93 07/03/24 07:45 112 H 07/03/24 07:34 37.5 C 112 H 22 157/93 H 92 O2 Del Method 07/03/24 12:51 Room Air 07/03/24 11:40 Room Air 07/03/24 11:37 07/03/24 10:50 Room Air 07/03/24 09:36 Room Air 07/03/24 09:20 Room Air 07/03/24 09:14 Room Air 07/03/24 08:00 Room Air 07/03/24 07:45 07/03/24 07:34 Room Air (1) Breast cancer Breast location: unspecified site of breast Estrogen receptor status: unspecified Laterality: unspecified laterality Patient sex: female Qualified Code(s): C50.919 - Malignant neoplasm of unspecified site of unspecified female breast
[2024-07-03] MEDS: cefTRIAXone SODIUM 1,000 MG/50 ML BAG IV SCH ×2 (14:08→16:50)
[2024-07-03] MEDS: HYDROCORTISONE SOD 50 MG in SYRINGE 0 ML IV SCH (14:16)
--- NOTE | 2024-07-03 14:32 | Emergency Department Note ---
Impression & Plan Fever, Somnolence, Breast cancer ED Provider Note CHIEF COMPLAINT: Altered mental status, fever HISTORY OF PRESENT ILLNESS: This 83-year-old female patient past medical history of metastatic breast cancer, hypertension, hypothyroidism, UTI with recent admission and metabolic encephalopathy presents to the emergency department after being discharged 06/28 after UTI/sepsis presents to the emergency department with altered mental status and fever overnight. Patient's states that he noticed progressive weakness and an increase in need for her to have assistance going to the bathroom. He called the ambulance this morning as things seem to be deteriorating. She did have chemotherapy recently. REVIEW OF SYSTEMS: A review of systems was performed with positives and pertinent negatives listed in the history of present illness. 10 systems were reviewed and are otherwise negative. ALLERGIES: see below MEDICATIONS: see below PMH: see below SOCIAL HISTORY: see below DDx: UTI, viral syndrome, metabolic abnormality, pneumonia, chemotherapeutic effect, intracranial hemorrhage among others. PHYSICAL EXAM: Vital signs reviewed. Noted to be hypotensive. Temperature 38.9 on exam. General: Ill-appearing 83-year-old female, in no significant distress. HEENT: No scleral icterus, PERRLA, neck supple. Dry mucous membranes, Cardiovascular: Regular rate and rhythm, no extra sounds. Pulmonary: Clear to auscultation bilaterally, normal work of breathing. Abdomen: Soft, nontender, nondistended, positive bowel sounds. Musculoskeletal: Atraumatic, no peripheral edema. Neurologic: Patient somnolent but arousable, minimal response to verbal stimuli. Skin: Warm, dry, no rash EMERGENCY DEPARTMENT COURSE/MDM: This patient was evaluated and appeared to be chronically ill, was noted to be febrile. She is somnolent but arousable. IV fluids were initiated. The patient is noted to be tachycardic. Laboratory work reveals a slight leukopenia. Blood cultures were obtained and the patient was medicated with IV Zosyn, IV Tylenol for her fever. Lactate and procalcitonin are normal. Patient's heart rate did seem to improve after the above interventions. Given her recent discharge for UTI/sepsis, chemotherapy treatment and now new fever, patient's case was discussed with the hospitalist service who will evaluate the patient for admission and further management. MONITORING: An order for cardiac monitoring was placed and the patient is noted to be in a sinus tachycardia at 102 beats per minute. RADIOLOGY: Chest x-ray to my interpretation reveals cardiomegaly with small mild pulmonary vascular congestion, indwelling port seen. EKG: EKG to my interpretation reveals a sinus tachycardia at 121 bpm, PVC noted. Left anterior fascicular block, poor R wave progression. Prolonged QT interval at 627. DISPOSITION: Admission Past Med/Surg History Problem List (Updated 07/03/24 @ 14:42 by Lima Conner MD) Breast cancer (Acute) Somnolence (Acute) Fever (Acute) Steroid dependence Metabolic encephalopathy Volume depletion Status post chemotherapy (Acute) Tachycardia Transaminitis Fall (Acute) UTI (urinary tract infection) (Acute) Port-A-Cath in place (04/21/24) Insertion Access Port with Fluroscopy(Not Applicable) - Mateo Mahan, Breast implant status Arthritis Triple negative breast cancer (Acute) Encounter for pre-operative examination Hypertension (Chronic) Hypothyroid (Chronic) Medical History Triple negative breast cancer Left Arthritis Hypothyroid Hypertension Cervical spinal stenosis s/p steroid injection Surgical History S/P tubal ligation H/O liposuction of abdomen Hx of bilateral cataract extraction (03/2023) History of ankle surgery screw in right ankle Hx of colonoscopy 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 knee replacement (2002) History of breast mammoplasty (1979) b/l Family History Mother Breast cancer Diabetes Hypertension Grandmother (Maternal) Breast cancer Father Colorectal cancer Hypertension Grandmother (Paternal) Colorectal cancer Grandfather (Paternal) Lung cancer Other No family history of adverse response to anesthesia Denies family history of Ovarian cancer Prostate cancer Myocardial infarction Social History Smoking Status: Never smoker Second Hand Exposure: Yes; Do You Dip or Chew Tobacco: No; Hx Alcohol Use: Yes Alcohol type: beer and wine Alcohol Intake Frequency: Monthly or Less Hx Substance Use: Yes Last Used Substance: Unknown Preferred Language: Qatari Communication Ability: Effective Dean Of Education Required: No Beliefs That Will Affect Care: Christian Christian Beliefs: Hoahaoism marital status: Current Living Situation: Spouse current occupational status: retired How many Children do You have: 3 Other Information That Helps Us Care for You: No Feels Safe at Home: Yes Safety Concerns: Feels Safe At This Time Childhood Exposure to Second-Hand Smoke: No Diet: regular during the past year weight has: remained stable Dental Care, Regularly: Yes Physical Activity Frequency: 3-4 Times per Week Seatbelt Use: always Sunscreen Use: Yes Assistive Devices: None Allergies Allergies Allergy/AdvReac Type Severity Reaction Status Date / Time lisinopril AdvReac Mild cough Verified 06/30/24 09:55 moxifloxacin AdvReac Unknown Unknown Verified 06/30/24 09:55 Home Meds Home Medications Medication Instructions Recorded Confirmed cholecalciferol (vitamin D3) 25 25 mcg PO QAM 02/14/23 07/03/24 mcg (1,000 unit) tablet (Vitamin D3) coenzyme Q10 200 mg capsule (Co 200 mg PO QAM 02/14/23 07/03/24 Q-10) levothyroxine 112 mcg tablet 112 mcg PO QAM 02/14/23 07/03/24 losartan 100 mg tablet 100 mg PO QAM 02/14/23 07/03/24 multivitamin 1 tab PO QAM 02/14/23 07/03/24 acetaminophen 500 mg tablet 500 mg PO Q8H PRN Pain 04/17/24 07/03/24 ibuprofen 200 mg tablet 200 mg PO Q6H PRN Pain 04/17/24 07/03/24 dexamethasone 4 mg tablet 4 mg PO DIRECTED 06/26/24 07/03/24 diphenoxylate-atropine 2.5 1 tab PO QID PRN Diarrhea 06/26/24 07/03/24 mg-0.025 mg tablet ondansetron 8 mg disintegrating 8 mg PO Q8H PRN n/v 06/26/24 07/03/24 tablet potassium chloride 20 mEq 40 meq PO DAILY 06/26/24 07/03/24 tablet,extended release prednisone 20 mg tablet 60 mg PO DAILY 06/26/24 07/03/24 prochlorperazine maleate 10 mg 10 mg PO Q6H PRN n/v 06/26/24 07/03/24 tablet Previous Rx's Medication Instructions Recorded dicyclomine 20 mg tablet 20 mg PO QID PRN abdominal pain 05/26/24 #60 tabs cefpodoxime 200 mg tablet 200 mg PO BID 7 days #14 tabs 06/28/24 Results & Data (ED) Vital Signs Vital Signs - 24 hr 07/03/24 07:34 07/03/24 07:45 07/03/24 08:00 Temperature 37.5 C Temperature Source Oral Pulse Rate 112 H 112 H Pulse Rate [Apical] Pulse Rhythm Regular Pulse Rhythm [Apical] Pulse Strength Normal Pulse Strength [Apical] Respiratory Rate 22 Respiratory Effort / Characteristics Non-Labored Respiratory Depth Normal Respiratory Pattern Regular Blood Pressure 157/93 H Blood Pressure [Right Arm] Blood Pressure Mean 114 Blood Pressure Mean [Right Arm] Pulse Oximetry 92 93 Oxygen Delivery Method Room Air Room Air Sepsis Recent Fever Within 48 Hours Yes Sepsis New/Unexplained Change in Mental Status Yes Sepsis Action Taken by Nursing Physician Notified 07/03/24 09:14 07/03/24 09:20 07/03/24 09:36 Temperature 37 C 36.8 C 36.5 C Temperature Source Oral Oral Oral Pulse Rate Pulse Rate [Apical] 98 H 102 H 105 H Pulse Rhythm Pulse Rhythm [Apical] Regular Pulse Strength Pulse Strength [Apical] Normal Normal Normal Respiratory Rate 20 18 18 Respiratory Effort / Characteristics Non-Labored Spontaneous Non-Labored Spontaneous Non-Labored Spontaneous Respiratory Depth Normal Normal Normal Respiratory Pattern Regular Blood Pressure Blood Pressure [Right Arm] 133/106 H 102/76 145/86 H Blood Pressure Mean Blood Pressure Mean [Right Arm] 115 84 105 Pulse Oximetry 93 93 94 Oxygen Delivery Method Room Air Room Air Room Air Sepsis Recent Fever Within 48 Hours Sepsis New/Unexplained Change in Mental Status Sepsis Action Taken by Nursing 07/03/24 10:50 Temperature 37 C Temperature Source Oral Pulse Rate Pulse Rate [Apical] 100 H Pulse Rhythm Pulse Rhythm [Apical] Pulse Strength Pulse Strength [Apical] Normal Respiratory Rate 20 Respiratory Effort / Characteristics Non-Labored Spontaneous Respiratory Depth Normal Respiratory Pattern Regular Blood Pressure Blood Pressure [Right Arm] 120/79 Blood Pressure Mean Blood Pressure Mean [Right Arm] 92 Pulse Oximetry 94 Oxygen Delivery Method Room Air Sepsis Recent Fever Within 48 Hours Sepsis New/Unexplained Change in Mental Status Sepsis Action Taken by Residential Medications Current Medication List: was personally reviewed by me Laboratory Data Attestation: I reviewed the patient's lab results. 07/03/24 07:50 07/03/24 07:50 Lab Results 07/03/24 07/03/24 Range/Units 07:50 08:10 WBC 2.52 L (4.8-10.8) K/ul RBC 3.50 L (4.20-5.40) M/uL Hgb 10.9 L (12.0-16.0) g/dl Hct 31.7 L (37.0-47.0) % MCV 90.6 (80.0-100.0) fL MCH 31.1 (25.0-34.0) pg MCHC 34.4 (32.0-36.0) g/dL RDW Std Deviation 56.1 H (36.4-46.3) fL RDW Coeff of Herminio 17.2 H (11.5-14.5) % Plt Count 134 (130-400) K/uL MPV 10.2 (9.4-12.4) fL Immature Gran % (Auto) 3.6 % Neut % (Auto) 79.7 % Lymph % (Auto) 15.5 % [place] % (Auto) 0.8 % Eos % (Auto) 0.0 % Baso % (Auto) 0.4 % Neut # (Auto) 2.01 (1.40-6.50) K/uL Lymph # (Auto) 0.39 L (1.20-3.40) K/uL [place] # (Auto) 0.02 L (0.11-0.59) K/uL Eos # (Auto) 0.00 (0.00-0.50) K/uL Baso # (Auto) 0.01 (0.00-0.20) K/uL Immature Gran # (Auto) 0.09 (0.01-0.20) K/uL Sodium 134 L (136-145) mmol/L Potassium 3.6 D (3.5-5.1) mmol/L Chloride 102 (98-107) mmol/L Carbon Dioxide 26 (21-32) mmol/L Anion Gap 6 (3-11) BUN 17 (6-23) mg/dl Creatinine 0.90 (0.6-1.2) mg/dl Est Cr Clr Drug Dosing 45.4 ml/min eGFR 64.23 BUN/Creatinine Ratio 18.9 (10-20) Glucose 104 H (70-99(Fasting)) mg/dl Lactate 1.4 (0.4-2.0) mmol/L Calcium 8.2 L (8.6-10.3) mg/dl Magnesium 1.8 (1.7-2.4) mg/dl Total Bilirubin 0.8 (0.2-1.0) mg/dl Direct Bilirubin 0.2 (0-0.2) mg/dl AST 143 H (13-39) U/L ALT 270 H (7-52) U/L Alkaline Phosphatase 195 H (34-104) U/L Troponin I High Sens 13.7 (0-14) pg/ml Total Protein 5.5 L (6.0-8.3) gm/dl Albumin 3.3 L (3.4-5.0) gm/dl Procalcitonin 0.93 H (0-0.5) ng/ml Administered Medications Sodium Chloride (Nss) 1,000 mls @ 100 mls/hr IV .Q10H BILLIE Stop: 07/04/24 13:14 Last Admin: 07/03/24 13:36 Dose: 100 mls/hr Documented By: BENEDICT Hydrocortisone Sodium (Succinate 50 mg/ Syringe) 1 mls @ 4 mls/min IV Q8H BILLIE Stop: 08/02/24 13:59 Last Admin: 07/03/24 14:16 Dose: 4 mls/min Documented By: BENEDICT Discontinued Medications Sodium Chloride (Nss) 1,000 mls @ 999 mls/hr IV .Q1H1M BILLIE Stop: 07/03/24 09:00 Last Infusion: 07/03/24 09:24 Dose: Infused Documented By: Admin: 07/03/24 08:11 Dose: 999 mls/hr Documented By: DOMINICK Acetaminophen (Ofirmev) 1,000 mg in 100 mls @ 400 mls/hr IV NOW STA Stop: 07/03/24 08:00 Last Infusion: 07/03/24 09:24 Dose: Infused Documented By: Admin: 07/03/24 08:12 Dose: 400 mls/hr Documented By: DOMINICK Piperacillin Sod/Tazobactam Sod (Zosyn) 4.5 gm in 100 mls @ 200 mls/hr IV NOW ONE; Protocol Stop: 07/03/24 09:02 Last Infusion: 07/03/24 09:52 Dose: Infused Documented By: Admin: 07/03/24 09:12 Dose: 200 mls/hr Documented By: DOMINICK Ceftriaxone Sodium (Rocephin) 1,000 mg in 50 mls @ 100 mls/hr IV Q24H BILLIE Stop: 07/08/24 13:29 Last Admin: 07/03/24 14:08 Dose: Not Given Documented By: BENEDICT Imaging Data Radiologist's Impression: Chest X-Ray 07/03/24 07:47 XR chest 1V portable HISTORY: 83 years-old Female Sepsis COMPARISON: 06/26/2024 TECHNIQUE: AP view of the chest FINDINGS: Heart size is upper limits of normal in size. Calcified bilateral breast implants. Unchanged right hemidiaphragmatic elevation. Right subclavian [id number] catheter is stable. Mild chronic interstitial coarsening. Pulmonary vascular congestion. Chronic interstitial coarsening of the lung bases. No pneumothorax or pleural effusion. Bones appear grossly intact. IMPRESSION: 1. Cardiomegaly with pulmonary vascular congestion. 2. Chronic interstitial coarsening of the lung bases. No airspace consolidation typical for pneumonia. ACT 112: Negative or not required by law. The above report was generated using voice recognition software. It may contain grammatical, syntax or spelling errors. Electronically signed by: Brian Castellano M.D. 07/03/2024 8:13 AM Discharge Plan Visit Data Chief Complaint: Altered Mental Status Stated Complaint: Altered Mental Status ED Provider: Lima Conner Discharge Problem: Fever, Somnolence, Breast cancer Patient Disposition: Admitted As Inpatient Discharge Instructions Interventions: ED Discharge Assessment Last Done: 07/03/24 12:53 Discharge Problem: Fever Qualifiers: Fever type: due to other condition Qualified Code(s): R50.81 - Fever presenting with conditions classified elsewhere Breast cancer Qualifiers: Breast location: unspecified site of breast Estrogen receptor status: u nspecified Patient sex: female Laterality: unspecified laterality Qualified Code(s): C50.919 - Malignant neoplasm of unspecified site of unspecified female breast
[2024-07-03] MEDS: LIDOCAINE VISCOUS 2% 15 ML UDC MT PRN (20:42)
[2024-07-03] MEDS: ACETAMINOPHEN 500 MG TAB PO PRN (21:32)
[2024-07-04] MEDS: LEVOTHYROXINE SODIUM 112 MCG TABLET PO SCH (05:19)
[2024-07-04 06:13] LABS: Hematocrit (blood only) 28.8 % (37.0-47.0); Hemoglobin 9.8 g/dl (12.0-16.0); Mean Corpuscular Hemoglobin 30.9 pg (25.0-34.0); Mean Corpuscular Volume 90.9 fL (80.0-100.0); Mean Platelet Volume 10.9 fL (9.4-12.4); Platelet Count 99 K/uL (130-400); RDW Coefficient of Variation 17.2 % (11.5-14.5); RDW Standard Deviation 57.8 fL (36.4-46.3); Red Blood Count 3.17 M/uL (4.20-5.40)
[2024-07-04 06:44] LABS: BUN Creatinine Ratio 19.2 (10-20); Calcium 7.7 mg/dl (8.6-10.3); Potassium 3.4 mmol/L (3.5-5.1)
[2024-07-04 07:09] LABS: Immature Granulocytes # (auto) 0.04 K/uL (0.01-0.20); Monocytes # (auto) 0.06 K/uL (0.11-0.59)
[2024-07-04 07:56] LABS: Polychromasia 1+; Target Cells 1+
[2024-07-04] MEDS: LOSARTAN POTASSIUM 50 MG TAB PO SCH (09:01)
[2024-07-04] MEDS: MULTIVITAMIN TAB PO SCH (09:01)
[2024-07-04] MEDS: CHOLECALCIFEROL 25 MCG (1000 UNITS) TAB PO SCH (09:01)
[2024-07-04] MEDS: FILGRASTIM 480 MCG/1.6 ML VIAL SC ONE (11:12)
[2024-07-04] MEDS: HYDROCORTISONE SOD 25 MG in SYRINGE 0 ML IV SCH (11:12)
--- NOTE | 2024-07-04 11:50 | Hospitalist Progress Note ---
Date of Service July 04, 2024 Assessment & Plan (1) Volume depletion: Plan: Resolved with IV fluids. Present on admission. Monitor intake and output (2) Pancytopenia due to chemotherapy: Plan: Oncology consultation appreciated. Filgrastim has been ordered. Serial labs. Neutropenic precautions (3) Steroid dependence: Plan: Intravenous hydrocortisone started on admission and tapered down today, July 04. Switch back to oral prednisone therapy at discharge (4) Tachycardia: Plan: Sinus mechanism. Mild. Present on admission. Now resolved with IV fluid resuscitation (5) Status post chemotherapy: Plan: For breast cancer. Last chemotherapy was July 02. Oncology consultation and recommendations appreciated (6) Metabolic encephalopathy: Plan: Present on admission. Now resolved. Continue antibiotic coverage for recently diagnosed Klebsiella UTI (7) Hypothyroid: Plan: Stable. Continue current thyroid replacement (8) Hypertension: Plan: Stable. Will resume losartan today, July 04 Plan Will discharge to home when white blood cell count recovers. Hopefully tomorrow, July 05 Admission and Anticipated Discharge Date Admission Date: July 03, 2024 Subjective She looks and feels much better. She was hoping to go home today. Unfortunately, she has significant chemotherapy-induced pancytopenia with leukopenia. Oncology has seen the patient and ordered filgrastim dose. Neutropenic precautions are in place. Intravenous hydrocortisone has been down titrated today, July 04. Will decrease IV fluids. Viscous lidocaine was started for oral discomfort but no obvious lesions. Review of Systems 2 Review of Systems: Constitutionalno fever or chills ENTno blurred vision, no double vision, no epistaxis, no sore throat Respiratoryno cough, no wheezing, no shortness of breath Cardiacno palpitations, no chest pain, no syncope Liza nausea, vomiting, diarrhea, melena, hematochezia. Poor oral intake however Abraham continues to have urinary frequency. No gross hematuria Musculoskeletalno joint pain, no muscle tenderness Skinno bruising, no rashes, no pruritus Neurogeneralized weakness has improved. No focal deficits Psychno depression, no anxiety. noticed her mental status was not at baseline however on admission but now seems to be fine Physical Exam 2 Physical Exam: General-alert and oriented x3, no fever, no chills HEENT-head atraumatic and normocephalic, pupils equal and reactive to light, extraocular muscles intact. Xerostomia noted Neck-no lymphadenopathy or thyromegaly, trachea midline Chest-clear to auscultation. No rales, wheezing or rhonchi Cardiac-regular rate and rhythm, normal S1 and S2 Abdomen-normal bowel sounds, no hepatosplenomegaly Extremities-no cyanosis, clubbing, or edema Neuro-cranial nerves II through XII intact, motor and sensory function within normal limits, strength symmetrical with generalized weakness, no focal deficits Psych-normal affect, normal mood Results & Data Results & Data Vital Signs (Past 12 Hours) Vital Signs Temp Pulse Resp BP Pulse Ox O2 Del Method 07/04/24 08:00 36.5 C 75 17 124/73 97 Room Air 07/04/24 04:57 36.6 C Laboratory Results 07/04/24 05:37 07/04/24 05:37 PG Care Time/CCT Total # of Minutes Spent Total Time Spent with Patient: Total time spent is greater than 50% in coordination of care (as documented) at patient's floor/unit and/or counseling patient: Coding Level of Care Code 56168 SUB INP/OBS CARE 3/50MIN Diagnoses Volume depletion E86.9 Pancytopenia due to chemotherapy D61.810 Steroid dependence F19.20 Tachycardia R00.0 Status post chemotherapy Z92.21 Metabolic encephalopathy G93.41 Hypothyroid E03.9 Hypertension I10
[2024-07-04 15:25] VITALS: O2SAT 98
[2024-07-04 21:10] VITALS: RESP 20
[2024-07-05 06:37] LABS: Hematocrit (blood only) 27.4 % (37.0-47.0); Hemoglobin 9.2 g/dl (12.0-16.0); Mean Corpuscular Hemoglobin 30.8 pg (25.0-34.0); Mean Corpuscular Hgb Conc 33.6 g/dL (32.0-36.0); Mean Corpuscular Volume 91.6 fL (80.0-100.0); Mean Platelet Volume 11.3 fL (9.4-12.4); Platelet Count 85 K/uL (130-400); RDW Coefficient of Variation 17.2 % (11.5-14.5); RDW Standard Deviation 57.7 fL (36.4-46.3); Red Blood Count 2.99 M/uL (4.20-5.40); White Blood Count 8.43 K/ul (4.8-10.8)
[2024-07-05 06:49] LABS: BUN Creatinine Ratio 19.4 (10-20); Calcium 7.8 mg/dl (8.6-10.3); Potassium 3.5 mmol/L (3.5-5.1)
[2024-07-05 06:57] VITALS: TEMP 98.1
[2024-07-05 07:19] LABS: ALC (manual) 1.77 K/uL (1.2-3.4); ANC (manual) 6.32 K/uL (1.4-6.5); Lymphocytes # (manual) 1.77 K/uL (1.2-3.4); Lymphocytes % (manual) 21 %; Metamyelocytes # (manual) 0.17 K/uL (0-0); Metamyelocytes % (manual) 2 %; Monocytes # (manual) 0.17 K/uL (0.11-0.59); Monocytes % (manual) 2 %; Neutrophils # (manual) 6.32 K/uL (1.40-6.50); Neutrophils % (manual) 75 %
[2024-07-05] MEDS: HEPARIN 100 UNIT/ML 5ML FLUSH FLUSH PRN (08:30)
--- NOTE | 2024-07-05 09:42 | Discharge Summary ---
Discharge Summary Date of Service July 05, 2024 Principal Dx & Hospital Course #1 = Principal Diagnosis (1) Volume depletion: Resolved with IV fluids. Present on admission. Monitor intake and output (2) Pancytopenia due to chemotherapy: Oncology consultation appreciated. Filgrastim was administered and ANC is now normal. Neutropenic precautions employed until ANC normalized (3) Steroid dependence: Intravenous hydrocortisone was administered while hospitalized. Switch back to oral prednisone therapy at discharge (4) Tachycardia: Sinus mechanism. Mild. Present on admission. Now resolved with IV fluid resuscitation (5) Status post chemotherapy: For breast cancer. Last chemotherapy was July 02. Oncology consultation and recommendations appreciated (6) Metabolic encephalopathy: Present on admission. Now resolved. Continue antibiotic coverage for recently diagnosed Klebsiella UTI (7) Hypothyroid: Stable. Continue current thyroid replacement (8) Hypertension: Stable. Will resume losartan todayJuly 04 Plan Home today, July 05 Admission HPI Per Admitting Provider 83-year-old female undergoing chemotherapy for breast cancer. She just completed her most recent chemotherapy treatment yesterday, July 02. She is steroid-dependent. She was recently treated and discharged on oral antibiotic for Klebsiella UTI. She states she has not missed any oral antibiotic dosage. The Klebsiella was not a resistant organism. She currently has no fever. She is mildly tachycardic. She appears to be volume depleted. No hematochezia or melena. No fever or rigors. EKG reveals mild sinus tachycardia. Chest x-ray is clear. Discharge Exam General-alert and oriented x3, no fever, no chills HEENT-head atraumatic and normocephalic, pupils equal and reactive to light, extraocular muscles intact. Xerostomia noted Neck-no lymphadenopathy or thyromegaly, trachea midline Chest-clear to auscultation. No rales, wheezing or rhonchi Cardiac-regular rate and rhythm, normal S1 and S2 Abdomen-normal bowel sounds, no hepatosplenomegaly Extremities-no cyanosis, clubbing, or edema Neuro-cranial nerves II through XII intact, motor and sensory function within normal limits, strength symmetrical with generalized weakness, no focal deficits Psych-normal affect, normal mood Discharge Plan Discharge Items Patient Disposition: Home - Self-Care Reason For Visit: VOLUME DEPLETION Discharge Diagnosis: Volume depletion, chemotherapy-induced pancytopenia Activity: Resume your previous activity Non-emergency contact: Primary Care Provider and Oncologist Call non-emergency contact if: your symptoms worsen Follow-up/Referrals: Delmi Buchanan DO [Primary Care Provider] - Diet: Regular Addtl Attending Provider Instructions: All medications remain the same. Follow-up with oncology as scheduled Pending Studies at Discharge: No Stand-Alone Forms: My [facility], Smoking Cessation Medications and DC Order Prescriptions: Continued dicyclomine 20 mg tablet 20 mg PO QID PRN (Reason: abdominal pain) Qty: 60 0RF Rx Instructions: per pharmacy last picked up in May multivitamin Tablet 1 tab PO QAM Rx Instructions: Unable to verify OTC meds at this date/time losartan 100 mg Tablet 100 mg PO QAM levothyroxine 112 mcg Tablet 112 mcg PO QAM coenzyme Q10 [Co Q-10] 200 mg Capsule 200 mg PO QAM Rx Instructions: Unable to verify OTC meds at this date/time cholecalciferol (vitamin D3) [Vitamin D3] 25 mcg (1,000 unit) Tablet 25 mcg PO QAM Rx Instructions: Unable to verify OTC meds at this date/time acetaminophen 500 mg Tablet 500 mg PO Q8H PRN (Reason: Pain) Rx Instructions: Unable to verify OTC meds at this date/time ibuprofen 200 mg Tablet 200 mg PO Q6H PRN (Reason: Pain) Rx Instructions: Unable to verify OTC meds at this date/time prednisone 20 mg tablet 60 mg PO DAILY Rx Instructions: picked up jun 18 25 day supply diphenoxylate-atropine 2.5-0.025 mg tablet 1 tab PO QID PRN (Reason: Diarrhea) prochlorperazine maleate 10 mg tablet 10 mg PO Q6H PRN (Reason: n/v) Rx Instructions: last picked up in april ondansetron 8 mg tablet,disintegrating 8 mg PO Q8H PRN (Reason: n/v) Rx Instructions: last picked up in april 2024 dexamethasone 4 mg tablet 4 mg PO DIRECTED Rx Instructions: 12 and 6 hours prior to pacitaxel potassium chloride 20 mEq tablet extended release 40 meq PO DAILY Rx Instructions: Per pharmacy the pt last filled this 04/2024 x15 day supply but with refills. Unable to verify at this date/time if pt still has some from april cefpodoxime 200 mg tablet 200 mg PO BID 7 Days Qty: 14 0RF Rx Instructions: must administer with a meal/food. Start Date 06/28/24 x7 day supply Discharge Orders: Discharge Order (Routine); Ordered 07/05/24 Ordered By: Kalen Ospina Admission Data Admit Date/Time: 07/03/24 11:01 Attending Provider: Kalen Ospina Admit Provider: Kalen Ospina Primary Care Provider: Delmi Buchanan Other Providers: Jayy Cameron [facility] Hospital Stay Data Consultations 07/03/24 11:45 ED Decision to Admit Stat 07/03/24 13:15 Consult Oncology Routine Pending Results Patient Have Any Pending Studies at Discharge: No Discharge Instructions Given to Patient (Per Discharging Provider) All medications remain the same. Follow-up with oncology as scheduled Total Time Total Time Spent Total Time Spent (In Minutes): 45 minutes Coding Level of Care Code 69346 INP/OBS DISCH >30 MIN Diagnoses Volume depletion E86.9 Pancytopenia due to chemotherapy D61.810 Steroid dependence F19.20 Tachycardia R00.0 Status post chemotherapy Z92.21 Metabolic encephalopathy G93.41 Hypothyroid E03.9 Hypertension I10
[2024-07-05 11:04] VITALS: BP 136/84; PULSE 95
== END 2024-07-05 13:09 | disposition home or self-care (01) | DRG 640 ==
LOC: SUATTDRO → ED 07:27 → 3W 11:01 → INTOOBSV 11:01 → 3W 13:00

== ENCOUNTER 2024-07-06 23:34 | Inpatient (IN) ==
--- NOTE | 2024-07-06 23:45 | Emergency Department Note ---
Impression & Plan Diverticulitis of colon with perforation, Sepsis Admit to the [facility] and consult surgery ED Provider Note NAME: FIONA JIMÉNEZ AGE: 83 SEX: Female INFORMANT: The patient's ED PROVIDER(S): Eloisa Reynoso DO CHIEF COMPLAINT: Generalized weakness and confusion PLAN: Disposition: Admit to the [facility] and consult general surgery MEDICAL DECISION MAKIN-year-old female patient with a history of breast cancer who had increasing generalized weakness and confusion throughout the day today according to the . She was using to get off the couch this evening and had very little today. Patient had recently been admitted to the hospital for urosepsis. On presentation to the emergency department, patient was noted to be febrile and had significant abdominal pain on physical exam. There was concern for sepsis and an acute abdomen. She was treated with 2 L of IV normal saline solution, IV antibiotics and CT scan showed evidence of pneumoperitoneum with concern for perforated diverticulitis. Case was discussed with on-call surgery and she will be admitted to the [facility] service on IV antibiotics. Patient did remain hemodynamically stable. Laboratory studies revealed leukopenia, hypokalemia along with a normal lactate and procalcitonin. Care/management discussed with: The patient's , ramp manager, [facility] and general surgery on-call Triage Nursing notes: reviewed and agree with them. Vital Signs: reviewed and remarkable for fever and tachycardia Additional History obtained from: Patient's who is at the bedside Chronic Medical/Social Conditions affecting care: Breast cancer receiving chemotherapy Prior/ Outside/ External records reviewed: Recent admission to the hospital for urosepsis Differential Diagnosis: Recurrent sepsis, UTI, pneumonia, perforated viscus, colitis, diverticulitis Diagnostics, independently interpreted by me: ECG: Sinus tachycardia at a rate of 126 with PVCs. There is no ST segment elevation or ectopy. Cardiac Monitoring: Sinus tachycardia at a rate of 124 Imaging studies: CT scan of the abdomen/pelvis: As per [facility] portable chest x-ray: As per my independent interpretation-no acute pulmonary infiltrates or consolidation HPI: 83 year old Female arrives for evaluation of weakness and confusion. Patient's explains that the patient has become increasingly weak and confused throughout the day today. She had very little oral intake. She was refusing to get off of the couch. She had recently been admitted to the hospital for urosepsis and he was concerned this may be happening again. The patient has a history of breast cancer on chemotherapy. PAST MEDICAL HISTORY: See Below, PAST SURGICAL HISTORY: See Below, SOCIAL HISTORY: See Below, HOME MEDICATIONS: See list ALLERGIES: See Below VITALS: See Below PHYSICAL EXAMINATION: HEENT: Head - normocephalic and atraumatic. Pupils are equal, round, and reactive to light. Extraocular eye muscles are intact, and sclera are anicteric. Nose -dry nasal mucosa without discharge. Mouth -extremely dry buccal mucosa. Oropharynx is nonerythematous and there is no tonsillar exudate or edema noted. Neck: Supple; no cervical lymphadenopathy or nuchal rigidity Heart: Tachycardic rate and regular rhythm there is a normal S1 and S2 with no murmurs, clicks, or gallops appreciated. Lungs: Clear to auscultation bilaterally with no wheezes, rales, or rhonchi. Abdomen: Mildly distended and exquisitely tender with even light palpation. This is consistent with an acute abdomen. The patient is guarding. There are no palpable pulsatile masses or hepatosplenomegaly. Bowel sounds are hypoactive. Extremities: No evidence of cyanosis, clubbing, or edema. There are easily palpable peripheral pulses. Skin: warm and dry with good turgor and no rashes. Emergency department treatment: patient care nursing assistant, IV normal saline x 2 L, IV Tylenol, IV Zosyn, IV daptomycin, IV K rider x 1 Emergency department course: The patient was evaluated in room B-11. A complete history and physical was performed. A septic protocol was performed. Patient was bolused with a liter of normal saline solution. an order was placed for continuous cardiac monitoring. The patient was in a sinus tachycardia at a rate of 124. A twelve-lead EKG was obtained as described above. A portable chest x- ray was obtained. She was catheterized for a urine specimen and an upper respiratory bio fire was obtained. Patient was given a dose of IV Tylenol as well as a dose of IV Zosyn. Patient went for CT scan of the abdomen/pelvis because of the acute abdominal findings. She was given a second liter of normal saline solution per sepsis protocol which did bring her heart rate down nicely. She remained hemodynamically stable. She was given IV K rider. CT scan showed evidence of pneumoperitoneum and possible perforated diverticulitis. She was given a dose of IV daptomycin. I discussed the case with the [facility] Hospitalist as well as general surgery on-call. I have personally spent greater than 50 minutes of critical care time in the direct management of this patient. This includes bedside care, interpretation of diagnostic studies, and testing, discussion with consultants, patient, and family members, and other required patient management activities. This 50minutes is in excess of all separately billable procedures. Past Med/Surg History Problem List (Updated 07/07/24 @ 16:49 by Eloisa Reynoso DO) Sepsis (Acute) Diverticulitis of colon with perforation (Acute) Status post chemotherapy Hypokalemia Diverticular disease of intestine with perforation and abscess Pneumoperitoneum Perforated diverticulum of large intestine Pancytopenia due to chemotherapy Breast cancer (Acute) Somnolence (Acute) Fever (Acute) Steroid dependence Metabolic encephalopathy Volume depletion Breast implant status Encounter for pre-operative examination Medical History Tachycardia Transaminitis Fall UTI (urinary tract infection) Arthritis Triple negative breast cancer Hypertension Hypothyroid Triple negative breast cancer Left Arthritis Hypothyroid Hypertension Cervical spinal stenosis s/p steroid injection Surgical History Port-A-Cath in place (04/21/24) Insertion Access Port with Fluroscopy(Not Applicable) - Mateo Mahan DO S/P tubal ligation H/O liposuction of abdomen Hx of bilateral cataract extraction (03/2023) History of ankle surgery screw in right ankle Hx of colonoscopy 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 knee replacement (2002) History of breast mammoplasty (1979) b/l Family History Mother Breast cancer Diabetes Hypertension Grandmother (Maternal) Breast cancer Father Colorectal cancer Hypertension Grandmother (Paternal) Colorectal cancer Grandfather (Paternal) Lung cancer Other No family history of adverse response to anesthesia Denies family history of Ovarian cancer Prostate cancer Myocardial infarction Social History Smoking Status: Never smoker Second Hand Exposure: Yes; Do You Dip or Chew Tobacco: No; Hx Alcohol Use: Yes Alcohol type: beer and wine Alcohol Intake Frequency: Monthly or Less Hx Substance Use: No Preferred Language: Lao Communication Ability: Effective Improvement Spec Required: No Beliefs That Will Affect Care: Quaker Quaker Beliefs: faith marital status: Current Living Situation: Spouse current occupational status: retired How many Children do You have: 3 Feels Safe at Home: Yes Childhood Exposure to Second-Hand Smoke: No Diet: regular during the past year weight has: remained stable Dental Care, Regularly: Yes Physical Activity Frequency: 3-4 Times per Week Seatbelt Use: always Sunscreen Use: Yes Assistive Devices: None Allergies Allergies Allergy/AdvReac Type Severity Reaction Status Date / Time lisinopril AdvReac Mild cough Verified 07/06/24 09:28 moxifloxacin AdvReac Unknown Unknown Verified 07/06/24 09:28 Home Meds Home Medications Medication Instructions Recorded Confirmed cholecalciferol (vitamin D3) 25 25 mcg PO QAM 02/14/23 07/06/24 mcg (1,000 unit) tablet (Vitamin D3) coenzyme Q10 200 mg capsule (Co 200 mg PO QAM 02/14/23 07/06/24 Q-10) levothyroxine 112 mcg tablet 112 mcg PO QAM 02/14/23 07/06/24 losartan 100 mg tablet 100 mg PO QAM 02/14/23 07/06/24 multivitamin 1 tab PO QAM 02/14/23 07/06/24 acetaminophen 500 mg tablet 500 mg PO Q8H PRN Pain 04/17/24 07/06/24 diphenoxylate-atropine 2.5 1 tab PO QID PRN Diarrhea 06/26/24 07/06/24 mg-0.025 mg tablet potassium chloride 20 mEq 40 meq PO DAILY 06/26/24 07/06/24 tablet,extended release prochlorperazine maleate 10 mg 10 mg PO Q6H PRN n/v 06/26/24 07/06/24 tablet prednisone 20 mg tablet 40 mg PO DAILY 07/06/24 07/06/24 Previous Rx's Medication Instructions Recorded dicyclomine 20 mg tablet 20 mg PO QID PRN abdominal pain 05/26/24 #60 tabs ondansetron 8 mg disintegrating 8 mg PO Q8H PRN n/v #30 tabs 07/06/24 tablet Results & Data (ED) Vital Signs Vital Signs - 24 hr 07/06/24 23:42 07/06/24 23:54 07/06/24 23:54 Temperature Temperature Source Pulse Rate 127 H 128 H Pulse Rate [Apical] Pulse Rhythm [Apical] Respiratory Rate 22 Respiratory Effort / Characteristics Respiratory Depth Respiratory Pattern Blood Pressure Blood Pressure [Left Arm] Blood Pressure Mean Blood Pressure Mean [Left Arm] Pulse Oximetry 98 98 Oxygen Delivery Method Room Air Room Air Sepsis Recent Fever Within 48 Hours Sepsis New/Unexplained Change in Mental Status Sepsis Action Taken by Nursing 07/06/24 23:54 07/06/24 23:54 07/07/24 00:00 Temperature 38.3 C H Temperature Source Oral Pulse Rate 128 H Pulse Rate [Apical] 128 H 137 H Pulse Rhythm [Apical] Respiratory Rate 22 22 22 Respiratory Effort / Characteristics Non-Labored Non-Labored Non-Labored Respiratory Depth Normal Normal Normal Respiratory Pattern Regular Regular Regular Blood Pressure 150/103 H Blood Pressure [Left Arm] 150/103 H 150/88 H Blood Pressure Mean 118 Blood Pressure Mean [Left Arm] 118 108 Pulse Oximetry 98 98 96 Oxygen Delivery Method Room Air Room Air Room Air Sepsis Recent Fever Within 48 Hours Yes Sepsis New/Unexplained Change in Mental Status Yes Sepsis Action Taken by Nursing Physician Notified 07/07/24 00:30 07/07/24 01:00 07/07/24 01:35 Temperature Temperature Source Pulse Rate Pulse Rate [Apical] 127 H 116 H 95 H Pulse Rhythm [Apical] Regular Respiratory Rate 24 22 26 H Respiratory Effort / Characteristics Non-Labored Non-Labored Non-Labored Spontaneous Respiratory Depth Normal Normal Normal Respiratory Pattern Regular Regular Regular Blood Pressure Blood Pressure [Left Arm] 164/81 H 143/76 H 135/63 Blood Pressure Mean Blood Pressure Mean [Left Arm] 108 98 87 Pulse Oximetry 97 95 96 Oxygen Delivery Method Room Air Room Air Room Air Sepsis Recent Fever Within 48 Hours Sepsis New/Unexplained Change in Mental Status Sepsis Action Taken by Nursing 07/07/24 01:45 07/07/24 02:00 07/07/24 02:15 Temperature 36.6 C Temperature Source Oral Pulse Rate Pulse Rate [Apical] 97 H 91 H 89 Pulse Rhythm [Apical] Regular Respiratory Rate 22 20 18 Respiratory Effort / Characteristics Non-Labored Spontaneous Non-Labored Non-Labored Respiratory Depth Normal Normal Normal Respiratory Pattern Regular Regular Blood Pressure Blood Pressure [Left Arm] 142/67 H 139/70 114/77 Blood Pressure Mean Blood Pressure Mean [Left Arm] 92 93 89 Pulse Oximetry 96 Oxygen Delivery Method Room Air Sepsis Recent Fever Within 48 Hours Sepsis New/Unexplained Change in Mental Status Sepsis Action Taken by Nursing 07/07/24 02:30 07/07/24 02:45 07/07/24 03:00 Temperature Temperature Source Pulse Rate Pulse Rate [Apical] 96 H 95 H 94 H Pulse Rhythm [Apical] Respiratory Rate 22 22 20 Respiratory Effort / Characteristics Non-Labored Non-Labored Non-Labored Respiratory Depth Normal Normal Normal Respiratory Pattern Regular Regular Regular Blood Pressure Blood Pressure [Left Arm] 121/63 122/56 L 118/67 Blood Pressure Mean Blood Pressure Mean [Left Arm] 82 78 84 Pulse Oximetry Oxygen Delivery Method Room Air Room Air Room Air Sepsis Recent Fever Within 48 Hours Sepsis New/Unexplained Change in Mental Status Sepsis Action Taken by Nursing 07/07/24 03:15 07/07/24 03:27 07/07/24 03:30 Temperature Temperature Source Pulse Rate 96 H Pulse Rate [Apical] 93 H 93 H Pulse Rhythm [Apical] Respiratory Rate 20 20 Respiratory Effort / Characteristics Non-Labored Non-Labored Respiratory Depth Normal Normal Respiratory Pattern Regular Regular Blood Pressure Blood Pressure [Left Arm] 124/67 125/70 Blood Pressure Mean Blood Pressure Mean [Left Arm] 86 88 Pulse Oximetry 97 96 Oxygen Delivery Method Room Air Room Air Sepsis Recent Fever Within 48 Hours Sepsis New/Unexplained Change in Mental Status Sepsis Action Taken by Nursing 07/07/24 03:45 07/07/24 04:00 Temperature 36.7 C Temperature Source Oral Pulse Rate Pulse Rate [Apical] 95 H 98 H Pulse Rhythm [Apical] Respiratory Rate 22 18 Respiratory Effort / Characteristics Non-Labored Non-Labored Respiratory Depth Normal Normal Respiratory Pattern Regular Regular Blood Pressure Blood Pressure [Left Arm] 104/57 L 105/57 L Blood Pressure Mean Blood Pressure Mean [Left Arm] 72 73 Pulse Oximetry Oxygen Delivery Method Sepsis Recent Fever Within 48 Hours Sepsis New/Unexplained Change in Mental Status Sepsis Action Taken by Nursing Laboratory Data 07/06/24 23:50 07/06/24 23:50 Lab Results 07/06/24 07/06/24 Range/Units 23:50 23:59 WBC 2.64 L (4.8-10.8) K/ul RBC 3.64 L (4.20-5.40) M/uL Hgb 11.3 L (12.0-16.0) g/dl Hct 33.1 L (37.0-47.0) % MCV 90.9 (80.0-100.0) fL MCH 31.0 (25.0-34.0) pg MCHC 34.1 (32.0-36.0) g/dL RDW Std Deviation 57.3 H (36.4-46.3) fL RDW Coeff of Herminio 17.2 H (11.5-14.5) % Plt Count 109 L (130-400) K/uL MPV 10.7 (9.4-12.4) fL Immature Gran % (Auto) 0.0 % Neut % (Auto) 47.7 % Lymph % (Auto) 47.7 % [place] % (Auto) 4.2 % Eos % (Auto) 0.0 % Baso % (Auto) 0.4 % Neut # (Auto) 1.26 L (1.40-6.50) K/uL Lymph # (Auto) 1.26 (1.20-3.40) K/uL [place] # (Auto) 0.11 (0.11-0.59) K/uL Eos # (Auto) 0.00 (0.00-0.50) K/uL Baso # (Auto) 0.01 (0.00-0.20) K/uL Immature Gran # (Auto) 0.00 L (0.01-0.20) K/uL Dohle Bodies 1+ Polychromasia 1+ Sodium 135 L (136-145) mmol/L Potassium 3.2 L (3.5-5.1) mmol/L Chloride 103 (98-107) mmol/L Carbon Dioxide 23 (21-32) mmol/L Anion Gap 9 (3-11) BUN 12 (6-23) mg/dl Creatinine 0.79 (0.6-1.2) mg/dl Est Cr Clr Drug Dosing 50.3 ml/min eGFR 75.10 BUN/Creatinine Ratio 15.2 (10-20) Glucose 139 H (70-99(Fasting)) mg/dl Lactate 1.6 (0.4-2.0) mmol/L Calcium 8.0 L (8.6-10.3) mg/dl Magnesium 1.7 (1.7-2.4) mg/dl Total Bilirubin 0.9 (0.2-1.0) mg/dl Direct Bilirubin 0.2 (0-0.2) mg/dl AST 53 H (13-39) U/L ALT 206 H (7-52) U/L Alkaline Phosphatase 210 H (34-104) U/L Troponin I High Sens 11.4 (0-14) pg/ml Total Protein 5.3 L (6.0-8.3) gm/dl Albumin 3.2 L (3.4-5.0) gm/dl Procalcitonin 0.13 (0-0.5) ng/ml Urine Color Yellow Urine Appearance Clear (Clear) Urine pH 5.5 (4.5-7.5) Ur Specific [place] 1.016 (1.000-1.030) Urine Protein 1+ H (Negative) Urine Glucose (UA) 1+ H (Negative) Urine Ketones Trace H (Negative) Urine Blood Negative (Negative) Urine Nitrite Negative (Negative) Urine Bilirubin Negative (Negative) Urine Urobilinogen Negative (Negative) Ur Leukocyte Esterase Negative (Negative) Urine WBC (Auto) 0-5 (0-5) /hpf Urine RBC (Auto) 0-2 (0-2) /hpf U Hyaline Cast (Auto) 3-5 H (0-2) /lpf U Epithel Cells (Auto) 0-2 (0-2) /hpf Urine Bacteria (Auto) None Seen (None Seen) Urine Mucus Present A (None Prsent) Adenovirus (PCR) Not Detected (NotDetected) B. pertussis DNA (PCR) Not Detected (NotDetected) B.parapertussis DNA PCR Not Detected (NotDetected) C. pneumoniae DNA (PCR) Not Detected (NotDetected) Coronavirus OC43 (PCR) Not Detected (NotDetected) Coronavirus HKU1 (PCR) Not Detected (NotDetected) Coronavirus 229E (PCR) Not Detected (NotDetected) SARS-CoV-2 (PCR) Not Detected (NotDetected) Coronavirus NL63 (PCR) Not Detected (NotDetected) Human Metapneumovir PCR Not Detected (NotDetected) Influenza Type A (PCR) Not Detected (NotDetected) Influenza Type B (PCR) Not Detected (NotDetected) M. pneumoniae (PCR) Not Detected (NotDetected) Parainfluenza 1 (PCR) Not Detected (NotDetected) Parainfluenza 2 (PCR) Not Detected (NotDetected) Parainfluenza 3 (PCR) Not Detected (NotDetected) Parainfluenza 4 (PCR) Not Detected (NotDetected) RSV (PCR) Not Detected (NotDetected) Entero/Rhino (PCR) Not Detected (NotDetected) Administered Medications Hydrocortisone Sodium (Succinate 50 mg/ Syringe) 1 mls @ 4 mls/min IV Q8H BILLIE Stop: 08/06/24 05:14 Last Admin: 07/07/24 12:36 Dose: 4 mls/min Documented By: Admin: 07/07/24 06:10 Dose: 4 mls/min Documented By: JB Pantoprazole Sodium (Protonix) 40 mg in 10 mls @ 5 mls/min IV BID COUNT INCLUDES THE [facility] Stop: 08/06/24 08:59 Last Admin: 07/07/24 09:46 Dose: 5 mls/min Documented By: Piperacillin Sod/Tazobactam Sod (Zosyn) 4.5 gm in 100 mls @ 25 mls/hr IV Q8H BILLIE; Protocol Stop: 07/17/24 06:59 Last Admin: 07/07/24 14:32 Dose: 25 mls/hr Documented By: Infusion: 07/07/24 11:29 Dose: Infused Documented By: Admin: 07/07/24 07:29 Dose: 25 mls/hr Documented By: MS Potassium Chloride/Sodium Chloride (Normal Saline W/20 Meq Kcl) 20 meq in 1,000 mls @ 80 mls/hr IV .[id number] BILLIE Stop: 07/08/24 06:54 Last Infusion: 07/07/24 10:46 Dose: 80 mls/hr Documented By: Admin: 07/07/24 07:28 Dose: 100 mls/hr Documented By: MS Morphine Sulfate (Morphine Sulfate 2 Mg/Ml Carp) 2 mg IV Q3H PRN PRN Reason: Moderate Pain (Scale 4, 5, 6) Stop: 07/21/24 06:40 Last Admin: 07/07/24 15:15 Dose: 2 mg Documented By: DOROTHY Discontinued Medications Fentanyl Citrate (Fentanyl Citrate Pf 100 Mcg/2 Ml Vial) 50 mcg IV NOW STA Stop: 07/07/24 00:19 Last Admin: 07/07/24 00:49 Dose: Not Given Documented By: AMANDA Sodium Chloride (Nss) 1,000 mls @ 999 mls/hr IV .Q1H1M BILLIE Stop: 07/07/24 00:45 Last Infusion: 07/07/24 01:50 Dose: Infused Documented By: Admin: 07/07/24 00:45 Dose: 999 mls/hr Documented By: AMANDA Acetaminophen (Ofirmev) 1,000 mg in 100 mls @ 400 mls/hr IV NOW STA Stop: 07/07/24 00:32 Last Infusion: 07/07/24 01:11 Dose: Infused Documented By: Admin: 07/07/24 00:51 Dose: 400 mls/hr Documented By: AMANDA Piperacillin Sod/Tazobactam Sod (Zosyn) 4.5 gm in 100 mls @ 200 mls/hr IV NOW ONE; Protocol Stop: 07/07/24 00:47 Last Infusion: 07/07/24 01:51 Dose: Infused Documented By: Admin: 07/07/24 01:16 Dose: 200 mls/hr Documented By: AMANDA Sodium Chloride (Nss) 1,000 mls @ 999 mls/hr IV .Q1H1M ONE Stop: 07/07/24 01:44 Last Infusion: 07/07/24 03:20 Dose: Infused Documented By: Admin: 07/07/24 01:32 Dose: 999 mls/hr Documented By: AMANDA Potassium Chloride (K Shawn / Wtr) 10 meq in 100 mls @ 100 mls/hr IV ONE ONE; Protocol Stop: 07/07/24 04:26 Last Infusion: 07/07/24 05:28 Dose: Infused Documented By: Admin: 07/07/24 04:19 Dose: 100 mls/hr Documented By: JB Daptomycin 350 mg/ Syringe 7 mls @ 0 mls/hr IV NOW STA; Protocol Stop: 07/07/24 03:30 Last Admin: 07/07/24 04:20 Dose: 1 mls/hr Documented By: JB Magnesium Sulfate/Dextrose (Magnesium Sulfate / D5w) 1 gm in 100 mls @ 50 mls/hr IV ONE ONE Stop: 07/07/24 05:49 Last Infusion: 07/07/24 06:40 Dose: Infused Documented By: Admin: 07/07/24 04:20 Dose: 50 mls/hr Documented By: JB Ioversol (Optiray 320 100ml) 100 ml IV ONCE ONE Stop: 07/07/24 01:32 Last Admin: 07/07/24 01:32 Dose: 93 ml Documented By: JOLENE Ondansetron HCl (Ondansetron Inj 2 Mg/Ml 2 Ml Vial) 4 mg IV NOW STA Stop: 07/07/24 00:19 Last Admin: 07/07/24 00:44 Dose: 4 mg Documented By: AMANDA Discharge Plan Visit Data Chief Complaint: Weakness Stated Complaint: ABD PAIN, ALTERED, WEAKNESS ED Provider: Eloisa Reynoso Discharge Problem: Diverticulitis of colon with perforation, Sepsis Patient Disposition: Home - Self-Care Discharge Instructions Interventions: ED Discharge Assessment Last Done: 07/07/24 05:57
[2024-07-07 00:26] LABS: Albumin Level 3.2 gm/dl (3.4-5.0); BUN Creatinine Ratio 15.2 (10-20); Bilirubin Direct 0.2 mg/dl (0-0.2); Bilirubin,Total 0.9 mg/dl (0.2-1.0); Creatinine Clr Calc Pharmacy 50.3 ml/min; Magnesium 1.7 mg/dl (1.7-2.4); Potassium 3.2 mmol/L (3.5-5.1); Total Protein 5.3 gm/dl (6.0-8.3)
[2024-07-07 00:31] LABS: Appearance Urine Clear (Clear); Bacteria Urine Automated None Seen (None Seen); Bilirubin Urine Negative (Negative); Blood Urine Negative (Negative); Color Urine Yellow; Epithelial Cell Urine Auto 0-2 /hpf (0-2); Glucose Urine UA 1+ (Negative); Ketones Urine Trace (Negative); Leukocyte Esterase Urine Negative (Negative); Mucus Urine Present (None Prsent); Nitrite Urine Negative (Negative); Protein Urine 1+ (Negative); RBC Urine Automated 0-2 /hpf (0-2); Specific Gravity Urine 1.016 (1.000-1.030); Urobilinogen Urine Negative (Negative); WBC Urine Automated 0-5 /hpf (0-5); pH Urine 5.5 (4.5-7.5)
[2024-07-07 00:33] LABS: Troponin I High Sensitivity 11.4 pg/ml (0-14)
[2024-07-07 00:38] LABS: Hematocrit (blood only) 33.1 % (37.0-47.0); Hemoglobin 11.3 g/dl (12.0-16.0); Mean Corpuscular Hgb Conc 34.1 g/dL (32.0-36.0); Mean Corpuscular Volume 90.9 fL (80.0-100.0); Mean Platelet Volume 10.7 fL (9.4-12.4); Platelet Count 109 K/uL (130-400); RDW Coefficient of Variation 17.2 % (11.5-14.5); RDW Standard Deviation 57.3 fL (36.4-46.3); Red Blood Count 3.64 M/uL (4.20-5.40); White Blood Count 2.64 K/ul (4.8-10.8)
[2024-07-07] MEDS: fentaNYL citrate PF 100 MCG/2 ML VIAL IV STA (00:44)
[2024-07-07] MEDS: ONDANSETRON INJ 2 MG/ML 2 ML VIAL IV STA (00:44)
[2024-07-07] MEDS: SODIUM CHLORIDE 0.9% 1,000 ML IV SCH (00:45)
[2024-07-07] MEDS: ACETAMINOPHEN 1,000 MG/100 ML VIAL IV STA (00:51)
[2024-07-07 00:54] LABS: Adenovirus PCR Not Detected (NotDetected); Bordetella parapertussis PCR Not Detected (NotDetected); Bordetella pertussis PCR Not Detected (NotDetected); Chlamydia pneumoniae PCR Not Detected (NotDetected); Coronavirus 229E PCR Not Detected (NotDetected); Coronavirus CoV-2 (COVID19)PCR Not Detected (NotDetected); Coronavirus HKU1 PCR Not Detected (NotDetected); Coronavirus NL63 PCR Not Detected (NotDetected); Coronavirus OC43PCR Not Detected (NotDetected); Human Metapneumovirus PCR Not Detected (NotDetected); Influenza A PCR Not Detected (NotDetected); Influenza B PCR Not Detected (NotDetected); Mycoplasma pneumoniae PCR Not Detected (NotDetected); Parainfluenza Virus 1 PCR Not Detected (NotDetected); Parainfluenza Virus 2 PCR Not Detected (NotDetected); Parainfluenza Virus 3 PCR Not Detected (NotDetected); Parainfluenza Virus 4 PCR Not Detected (NotDetected); Respiratory Syncytial VirusPCR Not Detected (NotDetected); Rhinovirus/Enterovirus PCR Not Detected (NotDetected)
[2024-07-07 01:02] LABS: Basophils # (auto) 0.01 K/uL (0.00-0.20); Basophils % (auto) 0.4 %; Dohle Bodies 1+; Lymphocytes # (auto) 1.26 K/uL (1.20-3.40); Lymphocytes % (auto) 47.7 %; Monocytes # (auto) 0.11 K/uL (0.11-0.59); Monocytes % (auto) 4.2 %; Neutrophils # (auto) 1.26 K/uL (1.40-6.50); Neutrophils % (auto) 47.7 %; Polychromasia 1+
[2024-07-07] MEDS: PIPERACILLIN/TAZOBACTAM 4.5 GM/100 ML BAG IV ONE (01:16)
[2024-07-07] MEDS: OPTIRAY 320 100ml IV ONE (01:32)
[2024-07-07] MEDS: SODIUM CHLORIDE 0.9% 1,000 ML IV ONE (01:32)
--- NOTE | 2024-07-07 01:51 | XRay Report ---
EXAM: XR chest 1V portable CLINICAL HISTORY: WEAKNESS [facility] INPATIENT TECHNIQUE: X-ray image of the chest is obtained in AP portable projection. COMPARISON: Comparison with the previous study dated 07/03/2024. FINDINGS: Pulmonary Parenchyma: Prominent both reena with prominent mainly interstitial markings for clinical correlation. Evidence of an elliptical opacity seen related to the lower aspect of the right lateral chest wall No evidence of consolidation, collapse, or focal opacities. No pulmonary nodules are identified. No evidence of pleural effusion or pleural thickening. Heart and Mediastinum: Heart size and shape are normal. No mediastinal widening or masses. No hilar or mediastinal lymphadenopathy. Bony Thorax: The bony thorax appears intact without fractures or deformities. Soft Tissues: Tip of the permacath is seen in situ at normal cavoatrial level. Soft tissues overlying the chest wall are unremarkable. Bilateral breast augmentation is seen IMPRESSION: 1. Bilateral mainly basal interstitial lung markings ( relative decrease in comparison with the previous study). 2. Elliptical soft tissue density is seen projected over the lower part of the right chest wall ?? which may suggest the right breast fold for clinical correlation. Electronically signed by Flori Cruz 07-07-2024 01:51 AM
--- NOTE | 2024-07-07 03:12 | CT Scan Report ---
EXAM: CT abd pelvis IV con only CLINICAL HISTORY: 93 ML OPTIRAY 320 PAIN IN ABD INPATIENT TECHNIQUE: CT of the abdomen and pelvis was performed with contrast, with the following protocol: axial images with, and reconstructed coronal and sagittal images. One of the following dose reduction techniques was utilized for this exam: Automated exposure control, adjustment of the mA and/or kV according to patient size, and use of iterative reconstruction. COMPARISON: No prior studies are available for comparison. FINDINGS: The visualized sections through the lower chest demonstrate bilateral breast implants with asymmetric deformity in the right breast implant showing a bulge medially and interrupted rim calcification. Advise clinical correlation and further evaluation with ultrasound if required clinically. Fibro-atelectatic changes are seen at both the lung bases. Abdomen: Liver: Normal in size, shape, and density. Sub-5 mm hepatic segment 4A, segment 8 and segment 6 hypodensities likely represent simple cysts. No masses were identified. Hepatic vasculature and biliary ducts are unremarkable. Gallbladder and Biliary System: The gallbladder is normal in size and shape. No wall thickening, pericholecystic fluid, or gallstones were identified. The common bile duct is normal in caliber without dilation. Pancreas: Pancreatic head, body, and tail are visualized and appear normal in size and density. No pancreatic masses or calcifications were noted. The pancreatic duct is not dilated. Spleen: Normal in size, shape, and density. No splenic lesions or masses were identified. Kidneys and Adrenal Glands: Both kidneys are normal in size, shape, and position. Cortical thickness is within normal limits. Bilateral renal cortical and parapelvic cysts are suggested. No renal calculi or hydronephrosis. Adrenal glands are unremarkable with no evidence of masses or hyperplasia. Pelvis: Urinary Bladder: Normal in contour and wall thickness. No intraluminal lesions identified. Uterus: Normal in size and contour. No masses or abnormal thickening. Ovaries: Not well visualized but no gross abnormalities noted. Vagina: Normal in contour and wall thickness. Cervix: No evidence of mass or abnormal thickening. Peritoneal and Retroperitoneal Structures: No free fluid or abnormal fluid collections were identified within the abdomen or pelvis. No lymphadenopathy was noted. Bowel: Extensive sigmoid colon diverticulosis along with circumferential edematous mural thickening, mild pericolonic fat smudging, and free fluid. Findings are suggestive of acute sigmoid diverticulitis. with sarah-colic small cystic collection with air-fluid level measuring 34x17 mm, could be an abscess Segmental dilatation of a few of the lower abdominal small bowel loops is likely reactionary. The appendix is not discretely visualized. Mild pneumoperitoneum noted, denoting possible perforated diverticulitis. Bones and Soft Tissues: Mild degenerative changes are seen in the spine. Inevitable streak artifacts from bilateral hip arthroplasty are noted. IMPRESSION: 1. Extensive sigmoid colon diverticulosis along with circumferential edematous mural thickening, mild pericolonic fat smudging, and free fluid. Findings are suggestive of acute sigmoid diverticulitis with a sarah-diverticular abscess. 2. Mild pneumoperitoneum noted, denoting possible perforated diverticulitis. 3. A few subcentimeter simple hepatic cysts are noted. 4. Bilateral renal cortical and parapelvic cysts are suggested. 5. Asymmetric deformity of the partially covered right breast implant. Advise clinical correlation and further evaluation with ultrasound if required clinically. Electronically signed by Krista Hua 07-07-2024 03:12 AM
--- NOTE | 2024-07-07 04:07 | History & Physical Report ---
Date of Service July 07, 2024 Assessment & Plan (1) Diverticular disease of intestine with perforation and abscess: (2) Perforated diverticulum of large intestine: (3) Pneumoperitoneum: (4) Breast cancer: (5) Metabolic encephalopathy: (6) Volume depletion: (7) Steroid dependence: (8) Hypokalemia: (9) Status post chemotherapy: Plan Sepsis due to diverticular disease of sigmoid colon with perforation and abscess/mild pneumoperitoneum/perforated diverticulum- NPO Daptomycin 350 mg IV every 24 hours Zosyn 4.5 g IV every 8 hours Zofran 4 mg IV every 6 hours as needed Pantoprazole 40 mg IV twice daily Acetaminophen 1 g IV every 8 hours as needed for mild pain or fever Morphine sulfate 2 mg IV every 3 hours as needed for moderate pain Morphine sulfate 4 mg IV every 3 hours as needed for severe pain NSS + KCl 20 mill equivalents at 100 mL/h x 2 L Consult general surgery Dr. Matos Chronic steroid dependence- Place on hydrocortisone 50 mg IV every 8 hours Electrolyte disturbances hypokalemia/hypomagnesemia- Potassium 3.2, based on IV fluids as noted above Magnesium 1.7, give magnesium sulfate 1 g IV Repeat laboratories in a.m. Breast cancer/status postchemotherapy- Has completed of chemotherapy Patient was to be undergoing mastectomy soon Consult oncology Dr. Tobin Hypertension- Holding losartan and potassium chloride while n.p.o. and relatively low blood pressure History of Present Illness Chief Complaint: The patient is brought to the emergency department with 's concerns regarding the development of severe abdominal pain since discharge on 07/05, has been worsening progressively, accompanied by nausea without vomiting. Primary Care Provider: Delmi Buchanan DO The patient is an 83-year-old female with a past medical history including breast cancer having completed of chemotherapy, steroid dependence, metabolic encephalopathy, breast implant status, vitamin D deficiency, hypothyroidism, and hypertension. She had admission from 06/26- 06/28 for sepsis due to UTI, and then from 07/03-07/05 for volume depletion and dehydration, managed with IV fluids. CT scan performed in the emergency department this evening shows acute sigmoid diverticulitis with peridiverticular abscess, and mild pneumoperitoneum suggestive of perforated diverticulum. Allergies Allergy/AdvReac Type Severity Reaction Status Date / Time lisinopril AdvReac Mild cough Verified 07/06/24 09:28 moxifloxacin AdvReac Unknown Unknown Verified 07/06/24 09:28 Home Medications Medication Instructions Recorded Confirmed Type cholecalciferol (vitamin D3) 25 25 mcg PO QAM 02/14/23 07/06/24 History mcg (1,000 unit) tablet (Vitamin D3) coenzyme Q10 200 mg capsule (Co 200 mg PO QAM 02/14/23 07/06/24 History Q-10) levothyroxine 112 mcg tablet 112 mcg PO QAM 02/14/23 07/06/24 History losartan 100 mg tablet 100 mg PO QAM 02/14/23 07/06/24 History multivitamin 1 tab PO QAM 02/14/23 07/06/24 History acetaminophen 500 mg tablet 500 mg PO Q8H PRN Pain 04/17/24 07/06/24 History dicyclomine 20 mg tablet 20 mg PO QID PRN abdominal pain 05/26/24 07/06/24 Rx #60 tabs diphenoxylate-atropine 2.5 1 tab PO QID PRN Diarrhea 06/26/24 07/06/24 History mg-0.025 mg tablet potassium chloride 20 mEq 40 meq PO DAILY 06/26/24 07/06/24 History tablet,extended release prochlorperazine maleate 10 mg 10 mg PO Q6H PRN n/v 06/26/24 07/06/24 History tablet ondansetron 8 mg disintegrating 8 mg PO Q8H PRN n/v #30 tabs 07/06/24 07/06/24 Rx tablet prednisone 20 mg tablet 40 mg PO DAILY 07/06/24 07/06/24 History Past Med/Surg History Problem List (Updated 07/07/24 @ 05:06 by Jimbo Johnson MD) Status post chemotherapy Hypokalemia Diverticular disease of intestine with perforation and abscess Pneumoperitoneum Perforated diverticulum of large intestine Pancytopenia due to chemotherapy Breast cancer (Acute) Somnolence (Acute) Fever (Acute) Steroid dependence Metabolic encephalopathy Volume depletion Breast implant status Encounter for pre-operative examination Medical History Status post chemotherapy Tachycardia Transaminitis Fall UTI (urinary tract infection) Arthritis Triple negative breast cancer Hypertension Hypothyroid Triple negative breast cancer Arthritis Hypothyroid Hypertension Cervical spinal stenosis Surgical History Port-A-Cath in place (04/21/24) S/P tubal ligation H/O liposuction of abdomen Hx of bilateral cataract extraction (03/2023) History of ankle surgery Hx of colonoscopy 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 knee replacement (2002) History of breast mammoplasty (1979) Family History Mother Breast cancer Diabetes Hypertension Grandmother (Maternal) Breast cancer Father Colorectal cancer Hypertension Grandmother (Paternal) Colorectal cancer Grandfather (Paternal) Lung cancer Other No family history of adverse response to anesthesia Denies family history of Ovarian cancer Prostate cancer Myocardial infarction Social History Smoking Status: Never smoker Second Hand Exposure: Yes; Do You Dip or Chew Tobacco: No; Hx Alcohol Use: Yes Alcohol type: beer and wine Alcohol Intake Frequency: Monthly or Less Hx Substance Use: Yes Last Used Substance: Unknown Preferred Language: Jordanian Communication Ability: Effective [employer]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 Required: No Beliefs That Will Affect Care: Sikhism Sikhism Beliefs: Latter-Day marital status: Current Living Situation: Spouse current occupational status: retired How many Children do You have: 3 Feels Safe at Home: Yes Childhood Exposure to Second-Hand Smoke: No Diet: regular during the past year weight has: remained stable Dental Care, Regularly: Yes Physical Activity Frequency: 3-4 Times per Week Seatbelt Use: always Sunscreen Use: Yes Assistive Devices: None Review of Systems Review of Systems: The HPI and review of systems are primarily provided by her , who is in attendance in the emergency department, due to her encephalopathy associated with sepsis due to perforated diverticular abscess and pneumoperitoneum. Physical Exam Physical Exam: The patient awakens easily, answers "no" to all questions asked, normocephalic and atraumatic, lying in bed and in no acute distress. HEENT--PERRL, EOMI, mucous membranes and oropharynx dry. Neck--supple. No JVD. No bruits. Thyroid normal, trachea midline, no adenopathy. Heart--normal S1 and S2. No murmurs, rubs or gallops. Lungs--clear bilaterally, no respiratory distress, no accessory muscle use. Abdomen--decreased bowel sounds, moderately distended and tympanitic, with generalized abdominal pain. Extremities--no cyanosis or clubbing. No edema. Dermatologic--normal skin turgor, normal color, no abnormal lymph nodes, no rash. Neurologic--cranial nerves II through XII grossly intact. Rheumatologic--limited exam Psychiatric--lethargic. Results & Data Results & Data Vital Signs (Past 12 Hours) Vital Signs Temp Pulse Pulse Resp BP BP Pulse Ox 07/07/24 04:00 98 H 18 105/57 L 07/07/24 03:45 95 H 22 104/57 L 07/07/24 03:30 93 H 20 125/70 96 07/07/24 03:27 96 H 07/07/24 03:15 93 H 20 124/67 97 07/07/24 03:00 94 H 20 118/67 07/07/24 02:45 95 H 22 122/56 L 07/07/24 02:30 96 H 22 121/63 07/07/24 02:15 89 18 114/77 07/07/24 02:00 36.6 C 91 H 20 139/70 07/07/24 01:45 97 H 22 142/67 H 96 07/07/24 01:35 95 H 26 H 135/63 96 07/07/24 01:00 116 H 22 143/76 H 95 07/07/24 00:30 127 H 24 164/81 H 97 07/07/24 00:00 137 H 22 150/88 H 96 07/06/24 23:54 128 H 22 150/103 H 98 07/06/24 23:54 38.3 C H 128 H 22 150/103 H 98 07/06/24 23:54 98 07/06/24 23:54 128 H 22 98 07/06/24 23:42 127 H O2 Del Method 07/07/24 04:00 07/07/24 03:45 07/07/24 03:30 Room Air 07/07/24 03:27 07/07/24 03:15 Room Air 07/07/24 03:00 Room Air 07/07/24 02:45 Room Air 07/07/24 02:30 Room Air 07/07/24 02:15 07/07/24 02:00 07/07/24 01:45 Room Air 07/07/24 01:35 Room Air 07/07/24 01:00 Room Air 07/07/24 00:30 Room Air 07/07/24 00:00 Room Air 07/06/24 23:54 Room Air 07/06/24 23:54 Room Air 07/06/24 23:54 Room Air 07/06/24 23:54 Room Air 07/06/24 23:42 Laboratory Results Laboratory Results WBC 2.64 K/ul (4.8-10.8) L 07/06/24 23:50 RBC 3.64 M/uL (4.20-5.40) L 07/06/24 23:50 Hgb 11.3 g/dl (12.0-16.0) L 07/06/24 23:50 Hct 33.1 % (37.0-47.0) L 07/06/24 23:50 MCV 90.9 fL (80.0-100.0) 07/06/24 23:50 MCH 31.0 pg (25.0-34.0) 07/06/24 23:50 MCHC 34.1 g/dL (32.0-36.0) 07/06/24 23:50 RDW Std Deviation 57.3 fL (36.4-46.3) H 07/06/24 23:50 RDW Coeff of Herminio 17.2 % (11.5-14.5) H 07/06/24 23:50 Plt Count 109 K/uL (130-400) L 07/06/24 23:50 MPV 10.7 fL (9.4-12.4) 07/06/24 23:50 Immature Gran % (Auto) 0.0 % 07/06/24 23:50 Neut % (Auto) 47.7 % 07/06/24 23:50 Lymph % (Auto) 47.7 % 07/06/24 23:50 [place] % (Auto) 4.2 % 07/06/24 23:50 Eos % (Auto) 0.0 % 07/06/24 23:50 Baso % (Auto) 0.4 % 07/06/24 23:50 Neut # (Auto) 1.26 K/uL (1.40-6.50) L 07/06/24 23:50 Lymph # (Auto) 1.26 K/uL (1.20-3.40) 07/06/24 23:50 [place] # (Auto) 0.11 K/uL (0.11-0.59) 07/06/24 23:50 Eos # (Auto) 0.00 K/uL (0.00-0.50) 07/06/24 23:50 Baso # (Auto) 0.01 K/uL (0.00-0.20) 07/06/24 23:50 Immature Gran # (Auto) 0.00 K/uL (0.01-0.20) L 07/06/24 23:50 Dohle Bodies 1+ 07/06/24 23:50 Polychromasia 1+ 07/06/24 23:50 Sodium 135 mmol/L (136-145) L 07/06/24 23:50 Potassium 3.2 mmol/L (3.5-5.1) L 07/06/24 23:50 Chloride 103 mmol/L (98-107) 07/06/24 23:50 Carbon Dioxide 23 mmol/L (21-32) 07/06/24 23:50 Anion Gap 9 (3-11) 07/06/24 23:50 BUN 12 mg/dl (6-23) 07/06/24 23:50 Creatinine 0.79 mg/dl (0.6-1.2) 07/06/24 23:50 Est Cr Clr Drug Dosing 50.3 ml/min 07/06/24 23:50 eGFR 75.10 07/06/24 23:50 BUN/Creatinine Ratio 15.2 (10-20) 07/06/24 23:50 Glucose 139 mg/dl (70-99(Fasting)) H 07/06/24 23:50 Lactate 1.6 mmol/L (0.4-2.0) 07/06/24 23:50 Calcium 8.0 mg/dl (8.6-10.3) L 07/06/24 23:50 Magnesium 1.7 mg/dl (1.7-2.4) 07/06/24 23:50 Total Bilirubin 0.9 mg/dl (0.2-1.0) 07/06/24 23:50 Direct Bilirubin 0.2 mg/dl (0-0.2) 07/06/24 23:50 AST 53 U/L (13-39) H 07/06/24 23:50 ALT 206 U/L (7-52) H 07/06/24 23:50 Alkaline Phosphatase 210 U/L (34-104) H 07/06/24 23:50 Troponin I High Sens 11.4 pg/ml (0-14) 07/06/24 23:50 Total Protein 5.3 gm/dl (6.0-8.3) L 07/06/24 23:50 Albumin 3.2 gm/dl (3.4-5.0) L 07/06/24 23:50 Procalcitonin 0.13 ng/ml (0-0.5) 07/06/24 23:50 Urine Color Yellow 07/06/24 23:59 Urine Appearance Clear (Clear) 07/06/24 23:59 Urine pH 5.5 (4.5-7.5) 07/06/24 23:59 Ur Specific [place] 1.016 (1.000-1.030) 07/06/24 23:59 Urine Protein 1+ (Negative) H 07/06/24 23:59 Urine Glucose (UA) 1+ (Negative) H 07/06/24 23:59 Urine Ketones Trace (Negative) H 07/06/24 23:59 Urine Blood Negative (Negative) 07/06/24 23:59 Urine Nitrite Negative (Negative) 07/06/24 23:59 Urine Bilirubin Negative (Negative) 07/06/24 23:59 Urine Urobilinogen Negative (Negative) 07/06/24 23:59 Ur Leukocyte Esterase Negative (Negative) 07/06/24 23:59 Urine WBC (Auto) 0-5 /hpf (0-5) 07/06/24 23:59 Urine RBC (Auto) 0-2 /hpf (0-2) 07/06/24 23:59 U Hyaline Cast (Auto) 3-5 /lpf (0-2) H 07/06/24 23:59 U Epithel Cells (Auto) 0-2 /hpf (0-2) 07/06/24 23:59 Urine Bacteria (Auto) None Seen (None Seen) 07/06/24 23:59 Urine Mucus Present (None Prsent) A 07/06/24 23:59 Adenovirus (PCR) Not Detected (NotDetected) 07/06/24 23:50 B. pertussis DNA (PCR) Not Detected (NotDetected) 07/06/24 23:50 B.parapertussis DNA PCR Not Detected (NotDetected) 07/06/24 23:50 C. pneumoniae DNA (PCR) Not Detected (NotDetected) 07/06/24 23:50 Coronavirus OC43 (PCR) Not Detected (NotDetected) 07/06/24 23:50 Coronavirus HKU1 (PCR) Not Detected (NotDetected) 07/06/24 23:50 Coronavirus 229E (PCR) Not Detected (NotDetected) 07/06/24 23:50 SARS-CoV-2 (PCR) Not Detected (NotDetected) 07/06/24 23:50 Coronavirus NL63 (PCR) Not Detected (NotDetected) 07/06/24 23:50 Human Metapneumovir PCR Not Detected (NotDetected) 07/06/24 23:50 Influenza Type A (PCR) Not Detected (NotDetected) 07/06/24 23:50 Influenza Type B (PCR) Not Detected (NotDetected) 07/06/24 23:50 M. pneumoniae (PCR) Not Detected (NotDetected) 07/06/24 23:50 Parainfluenza 1 (PCR) Not Detected (NotDetected) 07/06/24 23:50 Parainfluenza 2 (PCR) Not Detected (NotDetected) 07/06/24 23:50 Parainfluenza 3 (PCR) Not Detected (NotDetected) 07/06/24 23:50 Parainfluenza 4 (PCR) Not Detected (NotDetected) 07/06/24 23:50 RSV (PCR) Not Detected (NotDetected) 07/06/24 23:50 Entero/Rhino (PCR) Not Detected (NotDetected) 07/06/24 23:50 Impressions Chest X-Ray 07/06/24 23:54 EXAM: XR chest 1V portable CLINICAL HISTORY: WEAKNESS JMF INPATIENT TECHNIQUE: X-ray image of the chest is obtained in AP portable projection. COMPARISON: Comparison with the previous study dated 07/03/2024. FINDINGS: Pulmonary Parenchyma: Prominent both reena with prominent mainly interstitial markings for clinical correlation. Evidence of an elliptical opacity seen related to the lower aspect of the right lateral chest wall No evidence of consolidation, collapse, or focal opacities. No pulmonary nodules are identified. No evidence of pleural effusion or pleural thickening. Heart and Mediastinum: Heart size and shape are normal. No mediastinal widening or masses. No hilar or mediastinal lymphadenopathy. Bony Thorax: The bony thorax appears intact without fractures or deformities. Soft Tissues: Tip of the permacath is seen in situ at normal cavoatrial level. Soft tissues overlying the chest wall are unremarkable. Bilateral breast augmentation is seen IMPRESSION: 1. Bilateral mainly basal interstitial lung markings ( relative decrease in comparison with the previous study). 2. Elliptical soft tissue density is seen projected over the lower part of the right chest wall ?? which may suggest the right breast fold for clinical correlation. Electronically signed by Flori Cruz 07-07-2024 01:51 AM Abdomen/Pelvis CT 07/07/24 00:18 EXAM: CT abd pelvis IV con only CLINICAL HISTORY: 93 ML OPTIRAY 320 PAIN IN ABD INPATIENT TECHNIQUE: CT of the abdomen and pelvis was performed with contrast, with the following protocol: axial images with, and reconstructed coronal and sagittal images. One of the following dose reduction techniques was utilized for this exam: Automated exposure control, adjustment of the mA and/or kV according to patient size, and use of iterative reconstruction. COMPARISON: No prior studies are available for comparison. FINDINGS: The visualized sections through the lower chest demonstrate bilateral breast implants with asymmetric deformity in the right breast implant showing a bulge medially and interrupted rim calcification. Advise clinical correlation and further evaluation with ultrasound if required clinically. Fibro-atelectatic changes are seen at both the lung bases. Abdomen: Liver: Normal in size, shape, and density. Sub-5 mm hepatic segment 4A, segment 8 and segment 6 hypodensities likely represent simple cysts. No masses were identified. Hepatic vasculature and biliary ducts are unremarkable. Gallbladder and Biliary System: The gallbladder is normal in size and shape. No wall thickening, pericholecystic fluid, or gallstones were identified. The common bile duct is normal in caliber without dilation. Pancreas: Pancreatic head, body, and tail are visualized and appear normal in size and density. No pancreatic masses or calcifications were noted. The pancreatic duct is not dilated. Spleen: Normal in size, shape, and density. No splenic lesions or masses were identified. Kidneys and Adrenal Glands: Both kidneys are normal in size, shape, and position. Cortical thickness is within normal limits. Bilateral renal cortical and parapelvic cysts are suggested. No renal calculi or hydronephrosis. Adrenal glands are unremarkable with no evidence of masses or hyperplasia. Pelvis: Urinary Bladder: Normal in contour and wall thickness. No intraluminal lesions identified. Uterus: Normal in size and contour. No masses or abnormal thickening. Ovaries: Not well visualized but no gross abnormalities noted. Vagina: Normal in contour and wall thickness. Cervix: No evidence of mass or abnormal thickening. Peritoneal and Retroperitoneal Structures: No free fluid or abnormal fluid collections were identified within the abdomen or pelvis. No lymphadenopathy was noted. Bowel: Extensive sigmoid colon diverticulosis along with circumferential edematous mural thickening, mild pericolonic fat smudging, and free fluid. Findings are suggestive of acute sigmoid diverticulitis. with sarah-colic small cystic collection with air-fluid level measuring 34x17 mm, could be an abscess Segmental dilatation of a few of the lower abdominal small bowel loops is likely reactionary. The appendix is not discretely visualized. Mild pneumoperitoneum noted, denoting possible perforated diverticulitis. Bones and Soft Tissues: Mild degenerative changes are seen in the spine. Inevitable streak artifacts from bilateral hip arthroplasty are noted. IMPRESSION: 1. Extensive sigmoid colon diverticulosis along with circumferential edematous mural thickening, mild pericolonic fat smudging, and free fluid. Findings are suggestive of acute sigmoid diverticulitis with a sarah-diverticular abscess. 2. Mild pneumoperitoneum noted, denoting possible perforated diverticulitis. 3. A few subcentimeter simple hepatic cysts are noted. 4. Bilateral renal cortical and parapelvic cysts are suggested. 5. Asymmetric deformity of the partially covered right breast implant. Advise clinical correlation and further evaluation with ultrasound if required clinically. Electronically signed by Krista Hua 07-07-2024 03:12 AM Code Status & VTE Plan Code Status DNR/DNI VTE Prophylaxis Plan VTE Prophylaxis will be ordered: Yes PG Care Time/CCT Total # of Minutes Spent Total Time Spent with Patient: Total time spent is greater than 50% in coordination of care (as documented) at patient's floor/unit and/or counseling patient: Coding Level of Care Code 62910 INT INP/OBS CARE MIN Diagnoses Diverticular disease of intestine with perforation and abscess K57.80 Perforated diverticulum of large intestine K57.20 Pneumoperitoneum K66.8 Breast cancer C50.919 Breast location: unspecified site of breast Estrogen receptor status: unspecified Laterality: unspecified laterality Patient sex: female Metabolic encephalopathy G93.41 Volume depletion E86.9 Steroid dependence F19.20 Hypokalemia E87.6 Status post chemotherapy Z92.21 (4) Breast cancer Breast location: unspecified site of breast Estrogen receptor status: unspecified Laterality: unspecified laterality Patient sex: female Qualified Code(s): C50.919 - Malignant neoplasm of unspecified site of unspecified female breast
[2024-07-07] MEDS: POTASSIUM CHLORIDE / WTR 10 MEQ/100 ML PLCT IV ONE (04:19)
[2024-07-07] MEDS: DAPTOmycin 350 MG in SYRINGE 0 ML IV STA (04:20)
[2024-07-07] MEDS: MAGNESIUM SULFATE / D5W 1 GM/100 ML BAG IV ONE (04:20)
--- NOTE | 2024-07-07 05:43 | Surgery Consultation ---
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 She is not an extremis at this time. Vitals are within normal limits. White blood cell count is 2.6. Abdomen is soft, with mild tenderness in the left lower quadrant. She is not showing any signs of peritonitis. She has been placed on IV antibiotics and IV fluid hydration. She is being admitted to the medicine service. She will be maintained n.p.o. for now. I agree with IV antibiotic therapy. No urgent surgical indication at this time. We will follow very closely. I will discuss with our interventional radiology department about the possible developing abscess. We will continue to follow closely. History of Present Illness Reason for Consultation: Microperforated diverticulitis with possible developing abscess Requesting Physician: Beverley Reynoso MD Attending Physician: Beverley Reynoso MD History of Present Illness 83-year-old woman with a medical history of triple negative breast cancer currently on chemotherapy, keynote 22 protocol, and presents with increasing abdominal pain over the course of the day. She denies nausea or vomiting. She had bowel movement yesterday. She denies fevers but endorses chills and sweats. She is brought to the emergency department by her and was noted to have tachycardia. She was fluid resuscitated and her heart rate is down to the 90s. Of note, she was just hospitalized last week for urosepsis. She is currently on prednisone 60 mg/day due to hepatitis from pembrolizumab therapy. her last chemotherapy treatment was 06/25/2024. CT scan demonstrates extensive sigmoid diverticulitis with mild/punctate pneumoperitoneum and a possible developing abscess. Currently she is resting comfortably in bed, not an extremis. Allergies Allergy/AdvReac Type Severity Reaction Status Date / Time lisinopril AdvReac Mild cough Verified 07/06/24 09:28 moxifloxacin AdvReac Unknown Unknown Verified 07/06/24 09:28 Home Medications Medication Instructions Recorded Confirmed Type cholecalciferol (vitamin D3) 25 25 mcg PO QAM 02/14/23 07/06/24 History mcg (1,000 unit) tablet (Vitamin D3) coenzyme Q10 200 mg capsule (Co 200 mg PO QAM 02/14/23 07/06/24 History Q-10) levothyroxine 112 mcg tablet 112 mcg PO QAM 02/14/23 07/06/24 History losartan 100 mg tablet 100 mg PO QAM 02/14/23 07/06/24 History multivitamin 1 tab PO QAM 02/14/23 07/06/24 History acetaminophen 500 mg tablet 500 mg PO Q8H PRN Pain 04/17/24 07/06/24 History dicyclomine 20 mg tablet 20 mg PO QID PRN abdominal pain 05/26/24 07/06/24 Rx #60 tabs diphenoxylate-atropine 2.5 1 tab PO QID PRN Diarrhea 06/26/24 07/06/24 History mg-0.025 mg tablet potassium chloride 20 mEq 40 meq PO DAILY 06/26/24 07/06/24 History tablet,extended release prochlorperazine maleate 10 mg 10 mg PO Q6H PRN n/v 06/26/24 07/06/24 History tablet ondansetron 8 mg disintegrating 8 mg PO Q8H PRN n/v #30 tabs 07/06/24 07/06/24 Rx tablet prednisone 20 mg tablet 40 mg PO DAILY 07/06/24 07/06/24 History Patient History Medical History Tachycardia Transaminitis Fall UTI (urinary tract infection) Arthritis Triple negative breast cancer Hypertension Hypothyroid Triple negative breast cancer Left Arthritis Hypothyroid Hypertension Cervical spinal stenosis s/p steroid injection Surgical History Port-A-Cath in place (04/21/24) Insertion Access Port with Fluroscopy(Not Applicable) - Mateo Mahan, S/P tubal ligation H/O liposuction of abdomen Hx of bilateral cataract extraction (03/2023) History of ankle surgery screw in right ankle Hx of colonoscopy 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 knee replacement (2002) History of breast mammoplasty (1979) b/l Family History Mother Breast cancer Diabetes Hypertension Grandmother (Maternal) Breast cancer Father Colorectal cancer Hypertension Grandmother (Paternal) Colorectal cancer Grandfather (Paternal) Lung cancer Other No family history of adverse response to anesthesia Denies family history of Ovarian cancer Prostate cancer Myocardial infarction Social History Smoking Status: Never smoker Second Hand Exposure: Yes; Do You Dip or Chew Tobacco: No; Hx Alcohol Use: Yes Alcohol type: beer and wine Alcohol Intake Frequency: Monthly or Less Hx Substance Use: Yes Last Used Substance: Unknown Preferred Language: Tristanian Communication Ability: Effective Cooking Chef Required: No Beliefs That Will Affect Care: Adventism Adventism Beliefs: Druze marital status: Current Living Situation: Spouse current occupational status: retired How many Children do You have: 3 Feels Safe at Home: Yes Childhood Exposure to Second-Hand Smoke: No Diet: regular during the past year weight has: remained stable Dental Care, Regularly: Yes Physical Activity Frequency: 3-4 Times per Week Seatbelt Use: always Sunscreen Use: Yes Assistive Devices: None Review of Systems Review of Systems: All systems reviewed & are unremarkable except as noted in HPI & below Physical Exam Constitutional: WD/WN, vitals as above Eyes: PERRL, conjunctivae normal, anicteric sclerae Neck: trachea midline, no thyromegaly Respiratory: normal respiratory effort; no respiratory distress and no labored breathing Cardiovascular: Rate/Rhythm: regular rate and regular rhythm Gastrointestinal (Abdomen): Inspection/Auscultation: abdomen normal to inspection; abdomen not distended Percussion/Palpation: + abdomen tender ( Mild left lower quadrant) and abdomen soft; no guarding and abdomen not rigid Skin: no rashes, warm and dry Psychiatric: A+Ox3, euthymic affect Results & Data Vital Signs (Past 12 Hours) Vital Signs Temp Pulse Pulse Resp BP BP Pulse Ox 07/07/24 05:15 95 H 20 97 07/07/24 05:00 92 H 18 103/63 97 07/07/24 04:45 92 H 20 121/67 98 07/07/24 04:30 98 H 20 99/60 L 98 07/07/24 04:15 95 H 20 102/51 L 96 07/07/24 04:00 36.7 C 98 H 18 105/57 L 07/07/24 03:45 95 H 22 104/57 L 07/07/24 03:30 93 H 20 125/70 96 07/07/24 03:27 96 H 07/07/24 03:15 93 H 20 124/67 97 07/07/24 03:00 94 H 20 118/67 07/07/24 02:45 95 H 22 122/56 L 07/07/24 02:30 96 H 22 121/63 07/07/24 02:15 89 18 114/77 07/07/24 02:00 36.6 C 91 H 20 139/70 07/07/24 01:45 97 H 22 142/67 H 96 07/07/24 01:35 95 H 26 H 135/63 96 07/07/24 01:00 116 H 22 143/76 H 95 07/07/24 00:30 127 H 24 164/81 H 97 07/07/24 00:00 137 H 22 150/88 H 96 07/06/24 23:54 128 H 22 150/103 H 98 07/06/24 23:54 38.3 C H 128 H 22 150/103 H 98 07/06/24 23:54 98 07/06/24 23:54 128 H 22 98 07/06/24 23:42 127 H O2 Del Method 07/07/24 05:15 Room Air 07/07/24 05:00 Room Air 07/07/24 04:45 Room Air 07/07/24 04:30 Room Air 07/07/24 04:15 Room Air 07/07/24 04:00 07/07/24 03:45 07/07/24 03:30 Room Air 07/07/24 03:27 07/07/24 03:15 Room Air 07/07/24 03:00 Room Air 07/07/24 02:45 Room Air 07/07/24 02:30 Room Air 07/07/24 02:15 07/07/24 02:00 07/07/24 01:45 Room Air 07/07/24 01:35 Room Air 07/07/24 01:00 Room Air 07/07/24 00:30 Room Air 07/07/24 00:00 Room Air 07/06/24 23:54 Room Air 07/06/24 23:54 Room Air 07/06/24 23:54 Room Air 07/06/24 23:54 Room Air 07/06/24 23:42 Laboratory Results 07/06/24 07/06/24 Range/Units 23:59 23:50 WBC 2.64 L (4.8-10.8) K/ul RBC 3.64 L (4.20-5.40) M/uL Hgb 11.3 L (12.0-16.0) g/dl Hct 33.1 L (37.0-47.0) % MCV 90.9 (80.0-100.0) fL MCH 31.0 (25.0-34.0) pg MCHC 34.1 (32.0-36.0) g/dL RDW Std Deviation 57.3 H (36.4-46.3) fL RDW Coeff of Herminio 17.2 H (11.5-14.5) % Plt Count 109 L (130-400) K/uL MPV 10.7 (9.4-12.4) fL Immature Gran % (Auto) 0.0 % Neut % (Auto) 47.7 % Lymph % (Auto) 47.7 % [place] % (Auto) 4.2 % Eos % (Auto) 0.0 % Baso % (Auto) 0.4 % Neut # (Auto) 1.26 L (1.40-6.50) K/uL Lymph # (Auto) 1.26 (1.20-3.40) K/uL [place] # (Auto) 0.11 (0.11-0.59) K/uL Eos # (Auto) 0.00 (0.00-0.50) K/uL Baso # (Auto) 0.01 (0.00-0.20) K/uL Immature Gran # (Auto) 0.00 L (0.01-0.20) K/uL Dohle Bodies 1+ Polychromasia 1+ Sodium 135 L (136-145) mmol/L Potassium 3.2 L (3.5-5.1) mmol/L Chloride 103 (98-107) mmol/L Carbon Dioxide 23 (21-32) mmol/L Anion Gap 9 (3-11) BUN 12 (6-23) mg/dl Creatinine 0.79 (0.6-1.2) mg/dl Est Cr Clr Drug Dosing 50.3 ml/min eGFR 75.10 BUN/Creatinine Ratio 15.2 (10-20) Glucose 139 H (70-99(Fasting)) mg/dl Lactate 1.6 (0.4-2.0) mmol/L Calcium 8.0 L (8.6-10.3) mg/dl Magnesium 1.7 (1.7-2.4) mg/dl Total Bilirubin 0.9 (0.2-1.0) mg/dl Direct Bilirubin 0.2 (0-0.2) mg/dl AST 53 H (13-39) U/L ALT 206 H (7-52) U/L Alkaline Phosphatase 210 H (34-104) U/L Troponin I High Sens 11.4 (0-14) pg/ml Total Protein 5.3 L (6.0-8.3) gm/dl Albumin 3.2 L (3.4-5.0) gm/dl Procalcitonin 0.13 (0-0.5) ng/ml Urine Color Yellow Urine Appearance Clear (Clear) Urine pH 5.5 (4.5-7.5) Ur Specific [place] 1.016 (1.000-1.030) Urine Protein 1+ H (Negative) Urine Glucose (UA) 1+ H (Negative) Urine Ketones Trace H (Negative) Urine Blood Negative (Negative) Urine Nitrite Negative (Negative) Urine Bilirubin Negative (Negative) Urine Urobilinogen Negative (Negative) Ur Leukocyte Esterase Negative (Negative) Urine WBC (Auto) 0-5 (0-5) /hpf Urine RBC (Auto) 0-2 (0-2) /hpf U Hyaline Cast (Auto) 3-5 H (0-2) /lpf U Epithel Cells (Auto) 0-2 (0-2) /hpf Urine Bacteria (Auto) None Seen (None Seen) Urine Mucus Present A (None Prsent) Adenovirus (PCR) Not Detected (NotDetected) B. pertussis DNA (PCR) Not Detected (NotDetected) B.parapertussis DNA PCR Not Detected (NotDetected) C. pneumoniae DNA (PCR) Not Detected (NotDetected) Coronavirus OC43 (PCR) Not Detected (NotDetected) Coronavirus HKU1 (PCR) Not Detected (NotDetected) Coronavirus 229E (PCR) Not Detected (NotDetected) SARS-CoV-2 (PCR) Not Detected (NotDetected) Coronavirus NL63 (PCR) Not Detected (NotDetected) Human Metapneumovir PCR Not Detected (NotDetected) Influenza Type A (PCR) Not Detected (NotDetected) Influenza Type B (PCR) Not Detected (NotDetected) M. pneumoniae (PCR) Not Detected (NotDetected) Parainfluenza 1 (PCR) Not Detected (NotDetected) Parainfluenza 2 (PCR) Not Detected (NotDetected) Parainfluenza 3 (PCR) Not Detected (NotDetected) Parainfluenza 4 (PCR) Not Detected (NotDetected) RSV (PCR) Not Detected (NotDetected) Entero/Rhino (PCR) Not Detected (NotDetected) Diagnostic Findings CT abd pelvis IV con only ADDENDUM: [facility]'s ER was called at [phone] at 2:22 AM RECOVERY COACH, 07/07/2024, and Nurse Gloria was informed regarding the presence of Significant Medical Findings on this report. Electronically signed by Krista Hua 07-07-2024 03:12 AM ADDENDUM END EXAM: CT abd pelvis IV con only CLINICAL HISTORY: 93 ML OPTIRAY 320 PAIN IN ABD INPATIENT TECHNIQUE: CT of the abdomen and pelvis was performed with contrast, with the following protocol: axial images with, and reconstructed coronal and sagittal images. One of the following dose reduction techniques was utilized for this exam: Automated exposure control, adjustment of the mA and/or kV according to patient size, and use of iterative reconstruction. COMPARISON: No prior studies are available for comparison. FINDINGS: The visualized sections through the lower chest demonstrate bilateral breast implants with asymmetric deformity in the right breast implant showing a bulge medially and interrupted rim calcification. Advise clinical correlation and further evaluation with ultrasound if required clinically. Fibro-atelectatic changes are seen at both the lung bases. Abdomen: Liver: Normal in size, shape, and density. Sub-5 mm hepatic segment 4A, segment 8 and segment 6 hypodensities likely represent simple cysts. No masses were identified. Hepatic vasculature and biliary ducts are unremarkable. Gallbladder and Biliary System: The gallbladder is normal in size and shape. No wall thickening, pericholecystic fluid, or gallstones were identified. The common bile duct is normal in caliber without dilation. Pancreas: Pancreatic head, body, and tail are visualized and appear normal in size and density. No pancreatic masses or calcifications were noted. The pancreatic duct is not dilated. Spleen: Normal in size, shape, and density. No splenic lesions or masses were identified. Kidneys and Adrenal Glands: Both kidneys are normal in size, shape, and position. Cortical thickness is within normal limits. Bilateral renal cortical and parapelvic cysts are suggested. No renal calculi or hydronephrosis. Adrenal glands are unremarkable with no evidence of masses or hyperplasia. Pelvis: Urinary Bladder: Normal in contour and wall thickness. No intraluminal lesions identified. Uterus: Normal in size and contour. No masses or abnormal thickening. Ovaries: Not well visualized but no gross abnormalities noted. Vagina: Normal in contour and wall thickness. Cervix: No evidence of mass or abnormal thickening. Peritoneal and Retroperitoneal Structures: No free fluid or abnormal fluid collections were identified within the abdomen or pelvis. No lymphadenopathy was noted. Bowel: Extensive sigmoid colon diverticulosis along with circumferential edematous mural thickening, mild pericolonic fat smudging, and free fluid. Findings are suggestive of acute sigmoid diverticulitis. with sarah-colic small cystic collection with air-fluid level measuring 34x17 mm, could be an abscess Segmental dilatation of a few of the lower abdominal small bowel loops is likely reactionary. The appendix is not discretely visualized. Mild pneumoperitoneum noted, denoting possible perforated diverticulitis. Bones and Soft Tissues: Mild degenerative changes are seen in the spine. Inevitable streak artifacts from bilateral hip arthroplasty are noted. IMPRESSION: 1. Extensive sigmoid colon diverticulosis along with circumferential edematous mural thickening, mild pericolonic fat smudging, and free fluid. Findings are suggestive of acute sigmoid diverticulitis with a sarah-diverticular abscess. 2. Mild pneumoperitoneum noted, denoting possible perforated diverticulitis. 3. A few subcentimeter simple hepatic cysts are noted. 4. Bilateral renal cortical and parapelvic cysts are suggested. 5. Asymmetric deformity of the partially covered right breast implant. Advise clinical correlation and further evaluation with ultrasound if required clinically. Electronically signed by Krista Hua 07-07-2024 03:12 AM
[2024-07-07] MEDS: HYDROCORTISONE SOD 50 MG in SYRINGE 0 ML IV SCH (06:10)
[2024-07-07] MEDS ORDERED: ACETAMINOPHEN 1000 MG/100 ML IV IV PRN (06:41)
[2024-07-07] MEDS ORDERED: ONDANSETRON INJ 2 MG/ML 2 ML VIAL IV PRN (07:00)
[2024-07-07] MEDS: NSS + 20MEQ KCL 20 MEQ/1,000 ML BAG IV SCH (07:28)
[2024-07-07] MEDS: PIPERACILLIN/TAZOBACTAM 4.5 GM/100 ML BAG IV SCH (07:29)
[2024-07-07] MEDS: PANTOprazole 40 MG/10 ML SYR IV SCH (09:46)
--- NOTE | 2024-07-07 11:19 | Oncology Consultation ---
Date of Consultation July 07, 2024 Assessment & Plan (1) Diverticulitis of colon with perforation: (2) Sepsis: (3) Transaminitis: Plan -Management of diverticulitis per surgical team -Will consider giving G-CSF if ANC is below 1000 -Since systemic therapy has been discontinued due to side effects, She will follow-up outpatient with restaging PET/CT/breast MRI to assess for treatment response after which she will make a decision on whether she would like to proceed with surgical management for breast cancer History of Present Illness Reason for Consultation: Breast cancer, diverticulitis Attending Physician: Ashley Wilhelm MD History of Present Illness Patient with stage III breast cancer previously on neoadjuvant chemotherapy with carboplatin, paclitaxel last treated on 07/02/2024 (previously also on pembrolizumab which had to be held since 06/11/2024 due to immunotherapy induced hepatitis). Presented to the ER yesterday with abdominal pain and imaging revealed extensive sigmoid colon diverticulosis along with circumferential edematous mural thickening, mild pericolonic fat margin and free fluid suggestive of acute sigmoid diverticulitis with peridiverticular abscess, mild pneumoperitoneum denoting possible perforated diverticulitis. She was placed on IV antibiotics and general surgery has recommended conservative management. Of note, she was admitted to [facility] from 06/26/2024 to 06/28/2024 for AMS secondary to UTI. Then admitted from 07/03/2024 to 07/05/2024 due to altered mental status thought to be due to dehydration. She states that she is doing a little bit better with improvement in abdominal pain. Allergies Allergy/AdvReac Type Severity Reaction Status Date / Time lisinopril AdvReac Mild cough Verified 07/06/24 09:28 moxifloxacin AdvReac Unknown Unknown Verified 07/06/24 09:28 Home Medications Medication Instructions Recorded Confirmed Type cholecalciferol (vitamin D3) 25 25 mcg PO QAM 02/14/23 07/06/24 History mcg (1,000 unit) tablet (Vitamin D3) coenzyme Q10 200 mg capsule (Co 200 mg PO QAM 02/14/23 07/06/24 History Q-10) levothyroxine 112 mcg tablet 112 mcg PO QAM 02/14/23 07/06/24 History losartan 100 mg tablet 100 mg PO QAM 02/14/23 07/06/24 History multivitamin 1 tab PO QAM 02/14/23 07/06/24 History acetaminophen 500 mg tablet 500 mg PO Q8H PRN Pain 04/17/24 07/06/24 History dicyclomine 20 mg tablet 20 mg PO QID PRN abdominal pain 05/26/24 07/06/24 Rx #60 tabs diphenoxylate-atropine 2.5 1 tab PO QID PRN Diarrhea 06/26/24 07/06/24 History mg-0.025 mg tablet potassium chloride 20 mEq 40 meq PO DAILY 06/26/24 07/06/24 History tablet,extended release prochlorperazine maleate 10 mg 10 mg PO Q6H PRN n/v 06/26/24 07/06/24 History tablet ondansetron 8 mg disintegrating 8 mg PO Q8H PRN n/v #30 tabs 07/06/24 07/06/24 Rx tablet prednisone 20 mg tablet 40 mg PO DAILY 07/06/24 07/06/24 History Patient History Medical History Tachycardia Transaminitis Fall UTI (urinary tract infection) Arthritis Triple negative breast cancer Hypertension Hypothyroid Triple negative breast cancer Left Arthritis Hypothyroid Hypertension Cervical spinal stenosis s/p steroid injection Surgical History Port-A-Cath in place (04/21/24) Insertion Access Port with Fluroscopy(Not Applicable) - Mateo Mahan, S/P tubal ligation H/O liposuction of abdomen Hx of bilateral cataract extraction (03/2023) History of ankle surgery screw in right ankle Hx of colonoscopy 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 knee replacement (2002) History of breast mammoplasty (1979) b/l Family History Mother Breast cancer Diabetes Hypertension Grandmother (Maternal) Breast cancer Father Colorectal cancer Hypertension Grandmother (Paternal) Colorectal cancer Grandfather (Paternal) Lung cancer Other No family history of adverse response to anesthesia Denies family history of Ovarian cancer Prostate cancer Myocardial infarction Social History Smoking Status: Never smoker Second Hand Exposure: Yes; Do You Dip or Chew Tobacco: No; Hx Alcohol Use: Yes Alcohol type: beer and wine Alcohol Intake Frequency: Monthly or Less Hx Substance Use: No Preferred Language: Honduran Communication Ability: Effective Regulatory Consultant Required: No Beliefs That Will Affect Care: Jewish Jewish Beliefs: anabaptism marital status: Current Living Situation: Spouse current occupational status: retired How many Children do You have: 3 Feels Safe at Home: Yes Childhood Exposure to Second-Hand Smoke: No Diet: regular during the past year weight has: remained stable Dental Care, Regularly: Yes Physical Activity Frequency: 3-4 Times per Week Seatbelt Use: always Sunscreen Use: Yes Assistive Devices: None Results & Data Vital Signs (Past 12 Hours) Vital Signs Temp Pulse Pulse Resp BP BP Pulse Ox 07/07/24 06:55 07/07/24 06:55 89 07/07/24 06:54 36.7 C 93 H 18 109/68 94 07/07/24 06:40 36.7 C 93 H 18 109/68 94 07/07/24 06:00 89 20 108/56 L 95 07/07/24 05:15 95 H 20 97 07/07/24 05:00 92 H 18 103/63 97 07/07/24 04:45 92 H 20 121/67 98 07/07/24 04:30 98 H 20 99/60 L 98 07/07/24 04:15 95 H 20 102/51 L 96 07/07/24 04:00 36.7 C 98 H 18 105/57 L 07/07/24 03:45 95 H 22 104/57 L 07/07/24 03:30 93 H 20 125/70 96 07/07/24 03:27 96 H 07/07/24 03:15 93 H 20 124/67 97 07/07/24 03:00 94 H 20 118/67 07/07/24 02:45 95 H 22 122/56 L 07/07/24 02:30 96 H 22 121/63 07/07/24 02:15 89 18 114/77 07/07/24 02:00 36.6 C 91 H 20 139/70 07/07/24 01:45 97 H 22 142/67 H 96 07/07/24 01:35 95 H 26 H 135/63 96 07/07/24 01:00 116 H 22 143/76 H 95 07/07/24 00:30 127 H 24 164/81 H 97 07/07/24 00:00 137 H 22 150/88 H 96 07/06/24 23:54 128 H 22 150/103 H 98 07/06/24 23:54 38.3 C H 128 H 22 150/103 H 98 07/06/24 23:54 98 07/06/24 23:54 128 H 22 98 07/06/24 23:42 127 H O2 Del Method 07/07/24 06:55 Room Air 07/07/24 06:55 07/07/24 06:54 Room Air 07/07/24 06:40 Room Air 07/07/24 06:00 Room Air 07/07/24 05:15 Room Air 07/07/24 05:00 Room Air 07/07/24 04:45 Room Air 07/07/24 04:30 Room Air 07/07/24 04:15 Room Air 07/07/24 04:00 07/07/24 03:45 07/07/24 03:30 Room Air 07/07/24 03:27 07/07/24 03:15 Room Air 07/07/24 03:00 Room Air 07/07/24 02:45 Room Air 07/07/24 02:30 Room Air 07/07/24 02:15 07/07/24 02:00 07/07/24 01:45 Room Air 07/07/24 01:35 Room Air 07/07/24 01:00 Room Air 07/07/24 00:30 Room Air 07/07/24 00:00 Room Air 07/06/24 23:54 Room Air 07/06/24 23:54 Room Air 07/06/24 23:54 Room Air 07/06/24 23:54 Room Air 07/06/24 23:42
--- NOTE | 2024-07-07 12:09 | Hospitalist Progress Note ---
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 A/P: Acute sigmoid diverticulitis with peridiverticular abscess measuring 34 x 17 mm. Mild Pneumoperitoneum, possible perforated diverticulitis. C.diff negative, other stool studies pending Blood cultures: Pending Continue Zosyn, daptomycin discontinued. Keep NPO --> NSS + KCl 20 mill equivalents at 80 mL/h x 2 L Pantoprazole 40 mg IV twice daily Consult general surgery, Dr. Matos - no indication for urgent surgical intervention - Plan to discuss with IR for possible developing abscess Pain control: IV tylenol and morphine AM CBC and CMP (2) Steroid dependence: Plan: For transaminitis secondary to Pemobrolizumab Home prednisone decreased to 40 mg daily on 06/25 Continue hydrocortisone 50 mg IV every 8 hours Monitor LFTs while inpatient (3) Hypokalemia: Plan: Potassium 3.2 on arrival --> KCl added to IVF Also with Hypomag --> replaced IV Recheck AM (4) Breast cancer: Plan: Has completed of of chemotherapy Patient was to be undergoing mastectomy soon Consult oncology Dr. Tobin Plan Chronic stable medical conditions: * HTN - losartan held with hypotension Dispo: continued inpatient stay DVT proh: chemical deferred in case need for surgery updated by phone 07/07 Admission and Anticipated Discharge Date Admission Date: July 07, 2024 Supervising Physician Co-Signing Physician Notes VALORIE Supervision Note: I did not personally see or examine the patient today, but I verified all hernández points of VALORIE Mota's assessment and plan with the following exceptions/additions: None Subjective Patient seen this morning, no family present at bedside. Seems to have a good understanding of her disease progress, does report mild 3/10 abdominal pain no subjective fevers or chills states only recent bowel change was consipation and finally being able to have a bowel movement Review of Systems Review of Systems: All systems reviewed & are unremarkable except as noted in Subjective Physical Exam Physical Exam: General: NAD, VS as above Resp: normal respiratory effort, lungs clear to auscultation CV: RRR, no murmur, Abd: normal bowel sounds, mild tenderness LLQ and RLQ Extremities: Moves all extremities, no edema Neuro: A&O x3, Skin: intact, no lesions noted Results & Data Results & Data Vital Signs (Past 12 Hours) Vital Signs Temp Pulse Pulse Pulse Resp BP Pulse Ox 07/07/24 11:50 98.6 F 87 18 120/71 95 07/07/24 06:55 07/07/24 06:55 89 07/07/24 06:54 98.1 F 93 H 18 109/68 94 07/07/24 06:40 98.1 F 93 H 18 109/68 94 07/07/24 06:00 89 20 108/56 L 95 07/07/24 05:15 95 H 20 97 07/07/24 05:00 92 H 18 103/63 97 07/07/24 04:45 92 H 20 121/67 98 07/07/24 04:30 98 H 20 99/60 L 98 07/07/24 04:15 95 H 20 102/51 L 96 07/07/24 04:00 98.1 F 98 H 18 105/57 L 07/07/24 03:45 95 H 22 104/57 L 07/07/24 03:30 93 H 20 125/70 96 07/07/24 03:27 96 H 07/07/24 03:15 93 H 20 124/67 97 07/07/24 03:00 94 H 20 118/67 07/07/24 02:45 95 H 22 122/56 L 07/07/24 02:30 96 H 22 121/63 07/07/24 02:15 89 18 114/77 07/07/24 02:00 97.9 F 91 H 20 139/70 07/07/24 01:45 97 H 22 142/67 H 96 07/07/24 01:35 95 H 26 H 135/63 96 07/07/24 01:00 116 H 22 143/76 H 95 07/07/24 00:30 127 H 24 164/81 H 97 O2 Del Method 07/07/24 11:50 Room Air 07/07/24 06:55 Room Air 07/07/24 06:55 07/07/24 06:54 Room Air 07/07/24 06:40 Room Air 07/07/24 06:00 Room Air 07/07/24 05:15 Room Air 07/07/24 05:00 Room Air 07/07/24 04:45 Room Air 07/07/24 04:30 Room Air 07/07/24 04:15 Room Air 07/07/24 04:00 07/07/24 03:45 07/07/24 03:30 Room Air 07/07/24 03:27 07/07/24 03:15 Room Air 07/07/24 03:00 Room Air 07/07/24 02:45 Room Air 07/07/24 02:30 Room Air 07/07/24 02:15 07/07/24 02:00 07/07/24 01:45 Room Air 07/07/24 01:35 Room Air 07/07/24 01:00 Room Air 07/07/24 00:30 Room Air PG Care Time/CCT Total # of Minutes Spent Total Time Spent with Patient: Total time spent is greater than 50% in coordination of care (as documented) at patient's floor/unit and/or counseling patient: Coding Level of Care Code None Diagnoses Diverticular disease of intestine with perforation and abscess K57.80 Steroid dependence F19.20 Hypokalemia E87.6 Breast cancer C50.919 Breast location: unspecified site of breast Estrogen receptor status: unspecified Laterality: unspecified laterality Patient sex: female (4) Breast cancer Breast location: unspecified site of breast Estrogen receptor status: unspecified Laterality: unspecified laterality Patient sex: female Qualified Code(s): C50.919 - Malignant neoplasm of unspecified site of unspecified female breast
--- NOTE | 2024-07-07 14:19 | Electrocardiogram Report ---
Test Reason : Blood Pressure : */* mmHG Vent. Rate : 126 BPM Atrial Rate : 126 BPM P-R Int : 154 ms QRS Dur : 80 ms QT Int : 270 ms P-R-T Axes : 29 -48 103 degrees QTcB Int : 391 ms Sinus tachycardia with occasional Premature ventricular complexes Left anterior fascicular block Poor R wave progression, consider anterior OH vs. lead placement vs. LVH Abnormal ECG When compared with ECG of 03-Jul-2024 07:56, Sinus rhythm has replaced Junctional rhythm Nonspecific T wave abnormality now evident in Lateral leads Confirmed by Vaughn Poole ([id number]) on 07/07/2024 2:19:20 PM Referred By: Confirmed By: Vaughn Poole
[2024-07-07] MEDS: MoRPHine SULFATE 2 MG/ML CARP IV PRN (15:15)
[2024-07-07] MEDS: MoRPHine SULFATE 4 MG/ML 1 ML CARP\\VIAL IV PRN (21:26)
[2024-07-08 00:11] LABS: A calco-baum cmplx NotReported Not Detected (NotDetected); Bact fragilis Not Reported Not Detected (NotDetected); Blood Culture Id Panel PCR Panel Negative (NotDetected); C auris Not Reported Not Detected (NotDetected); Calbicans Not Reported Not Detected (NotDetected); Candida glabrata Not Reported Not Detected (NotDetected); Candida krusei Not Reported Not Detected (NotDetected); Cneoformans/gatti Not Reported Not Detected (NotDetected); Cparapsilosis Not Reported Not Detected (NotDetected); E cloacae compx Not Reported Not Detected (NotDetected); Efaecalis Not Reported Not Detected (NotDetected); Efaecium Not Reported Not Detected (NotDetected); Enterobacterales Not Reported Not Detected (NotDetected); Escherichia coli Not Reported Not Detected (NotDetected); H influenzae Not Reported Not Detected (NotDetected); K aerogenes Not Reported Not Detected (NotDetected); Koxytoca Not Reported Not Detected (NotDetected); Kpneumoniae grp Not Reported Not Detected (NotDetected); Lmonocyt Not Reported Not Detected (NotDetected); N meningitidis Not Reported Not Detected (NotDetected); P aeruginosa Not Reported Not Detected (NotDetected); Proteus spp Not Reported Not Detected (NotDetected); Salmonella spp Not Reported Not Detected (NotDetected); Staph lugdunensis Not Reported Not Detected (NotDetected); Staph spp. Not Reported Not Detected (NotDetected); Staphaureus Not Reported Not Detected (NotDetected); Staphepi Not Reported Not Detected (NotDetected); Stenmaltophilia Not Reported Not Detected (NotDetected); Strep agal(GrpB) Not Reported Not Detected (NotDetected); Strep pneum Not Reported Not Detected (NotDetected); Strep pyog (GrpA) Not Reported Not Detected (NotDetected); Strep spp Not Reported Not Detected (NotDetected)
[2024-07-08] MEDS: DAPTOmycin 325 MG in SYRINGE 0 ML IV SCH (04:34)
[2024-07-08 06:26] LABS: Albumin Globulin Ratio 1.3 (0.9-2); Albumin Level 2.5 gm/dl (3.4-5.0); BUN Creatinine Ratio 18.8 (10-20); Bilirubin,Total 0.6 mg/dl (0.2-1.0); Calcium 7.7 mg/dl (8.6-10.3); Creatinine Clr Calc Pharmacy 59.4 ml/min; Magnesium 2.1 mg/dl (1.7-2.4); Potassium 3.5 mmol/L (3.5-5.1); Total Protein 4.5 gm/dl (6.0-8.3)
[2024-07-08 06:33] LABS: Basophils # (auto) 0.01 K/uL (0.00-0.20); Basophils % (auto) 0.4 %; Hemoglobin 8.3 g/dl (12.0-16.0); Immature Granulocytes # (auto) 0.02 K/uL (0.01-0.20); Immature Granulocytes % (auto) 0.8 %; Lymphocytes # (auto) 0.85 K/uL (1.20-3.40); Lymphocytes % (auto) 32.4 %; Mean Corpuscular Hemoglobin 31.6 pg (25.0-34.0); Mean Corpuscular Hgb Conc 34.6 g/dL (32.0-36.0); Mean Corpuscular Volume 91.3 fL (80.0-100.0); Mean Platelet Volume 10.7 fL (9.4-12.4); Monocytes # (auto) 0.24 K/uL (0.11-0.59); Monocytes % (auto) 9.2 %; Neutrophils % (auto) 57.2 %; Platelet Count 121 K/uL (130-400); RDW Coefficient of Variation 17.4 % (11.5-14.5); RDW Standard Deviation 57.2 fL (36.4-46.3); Red Blood Count 2.63 M/uL (4.20-5.40); White Blood Count 2.62 K/ul (4.8-10.8)
--- NOTE | 2024-07-08 11:19 | Hospitalist Progress Note ---
Date of Service July 08, 2024 Assessment & Plan (1) Diverticular disease of intestine with perforation and abscess: Plan: Metabolic encephalopathy, Sepsis POA Presented with severe abdominal pain with nausea since discharge on 07/05 (admission for dehydration) with recent admission 06/26 - 06/[address] A/P: Acute sigmoid diverticulitis with peridiverticular abscess measuring 34 x 17 mm. Mild Pneumoperitoneum, possible perforated diverticulitis. C.diff negative, other stool studies pending Blood cultures: 09/05 GNB, no results from [facility] . Likely from GI source given perforation of bowel Continue Zosyn, daptomycin - immunocompromised, but if BC remain without GP concerns at 48 hours will discontinue Keep NPO - received 2L IVF, will continue low rate maintenance fluids while allowed ships/chips Pantoprazole 40 mg IV twice daily Consult general surgery, Dr. Matos - no indication for urgent surgical intervention - no drainable abscess per IR--> if not clinically improving in a few days, repeat CT to look for enlarging abscess more amenable to IR drainage - advanced to sips and chips Hgb 11.3-->8.3 possible dilutional component and recent chemo - continue to montior with AM labs. clinically no signs of active bleeding Pain control: IV tylenol and morphine AM CBC and CMP (2) Steroid dependence: Plan: For transaminitis secondary to Pemobrolizumab Home prednisone decreased to 40 mg daily on 06/25 Continue hydrocortisone 50 mg IV every 8 hours Monitor LFTs while inpatient (3) Hypokalemia: Plan: Potassium 3.2 on arrival --> KCl added to IVF Also with Hypomag --> replaced IV K and Mag replete (4) Breast cancer: Plan: Has completed 9 of of chemotherapy Consult oncology Dr. Tobin - no further chemo. Plan for outpatient restaging scan and then discuss possible surgery - consider Neupogen if ANC is below 1000 Plan Chronic stable medical conditions: * HTN - losartan held with hypotension * hypothyroid - resume synthroid in AM Dispo: continued inpatient stay DVT proh: chemical deferred in case need for surgery, SCDs updated by phone 07/07 and in person 07/08 Admission and Anticipated Discharge Date Admission Date: July 07, 2024 Supervising Physician Co-Signing Physician Notes PA Supervision Note: I did not personally see or examine the patient today, but I verified all hernández points of VALORIE Mota's assessment and plan with the following exceptions/additions: None Subjective Patient seen lying in bed, present at bedside. More pain today, passing gas, no BM Has been advanced to sips and chips - tolerating this without increased pain Tele - SR 80s Review of Systems Review of Systems: All systems reviewed & are unremarkable except as noted in Subjective Physical Exam Physical Exam: General: NAD, VS as above Resp: normal respiratory effort, lungs clear to auscultation CV: RRR, no murmur, Abd: normal bowel sounds, mild tenderness LLQ and RLQ Extremities: Moves all extremities, no edema Neuro: A&O x3, Skin: intact, no lesions noted Results & Data Results & Data Vital Signs (Past 12 Hours) Vital Signs Temp Pulse Pulse Resp BP Pulse Ox O2 Del Method 07/08/24 10:50 96.4 F L 85 16 127/63 95 Room Air 07/08/24 08:00 79 07/08/24 07:34 98.4 F 82 20 123/66 95 Room Air 07/08/24 02:44 97.5 F L 79 20 121/69 95 Room Air 07/07/24 23:17 98.2 F 79 20 117/67 95 Room Air Laboratory Results CBC and chemistry reviewed PG Care Time/CCT Total # of Minutes Spent Total Time Spent with Patient: Total time spent is greater than 50% in coordination of care (as documented) at patient's floor/unit and/or counseling patient: Coding Level of Care Code 40484 SUB INP/OBS CARE 3/50MIN Diagnoses Diverticular disease of intestine with perforation and abscess K57.80 Steroid dependence F19.20 Hypokalemia E87.6 Breast cancer C50.919 Breast location: unspecified site of breast Estrogen receptor status: unspecified Laterality: unspecified laterality Patient sex: female (4) Breast cancer Breast location: unspecified site of breast Estrogen receptor status: unspecified Laterality: unspecified laterality Patient sex: female Qualified Code(s): C50.919 - Malignant neoplasm of unspecified site of unspecified female breast
--- NOTE | 2024-07-08 11:27 | Surgery Progress Note ---
Date of Service July 08, 2024 Assessment & Plan (1) Status post chemotherapy: (2) Diverticular disease of intestine with perforation and abscess: (3) Pancytopenia due to chemotherapy: (4) Steroid dependence: Plan 83-year-old woman, on chemotherapy for triple negative breast cancer, on steroids for hepatitis due to pembrolizumab therapy, presents with diverticulitis with possible Microperforation and possible developing abscess. - avss - pancytopenic - + blood culture for gram negative bacilli - Reviewed with IR, no drainable fluid collection at this time. Plan: continue IV Zosyn , she will likely need at least 3-4 days of IV abx pending clinical improvement. If pain not significantly improving may need to consider reimaging to eval abscess and if amenable to drainage if abscess larger. continue pain management as needed IV fluids while npo, ice chips and sips okay for today, possibly clear liquids this evening continue medical management Dr. Matos has seen and examined patient. Admission and Anticipated Discharge Date Admission Date: July 07, 2024 Subjective pain about the same, more in the right lower abdomen, not worse no n,v thirsty very little appetite Physical Exam Constitutional: WD/WN, vitals as above cooperative and comfortable; no acute distress and not ill appearing Respiratory: normal respiratory effort; no respiratory distress Gastrointestinal (Abdomen): Inspection/Auscultation: abdomen normal to inspection; abdomen not distended Percussion/Palpation: + abdomen tender (mid to right lower abdomen), + guarding (voluntary right to mid low abdomen) and abdomen soft; abdomen not rigid and abdomen not firm Skin: no rashes, warm and dry Psychiatric: Orientation: alert and oriented x 3 Results & Data Vital Signs (Past 12 Hours) Vital Signs Temp Pulse Pulse Resp BP Pulse Ox O2 Del Method 07/08/24 10:50 35.8 C L 85 16 127/63 95 Room Air 07/08/24 08:00 79 07/08/24 07:34 36.9 C 82 20 123/66 95 Room Air 07/08/24 02:44 36.4 C L 79 20 121/69 95 Room Air Laboratory Results 07/08/24 07/06/24 Range/Units 05:50 23:50 WBC 2.62 L (4.8-10.8) K/ul RBC 2.63 L (4.20-5.40) M/uL Hgb 8.3 L D (12.0-16.0) g/dl Hct 24.0 L (37.0-47.0) % MCV 91.3 (80.0-100.0) fL MCH 31.6 (25.0-34.0) pg MCHC 34.6 (32.0-36.0) g/dL RDW Std Deviation 57.2 H (36.4-46.3) fL RDW Coeff of Herminio 17.4 H (11.5-14.5) % Plt Count 121 L (130-400) K/uL MPV 10.7 (9.4-12.4) fL Immature Gran % (Auto) 0.8 % Neut % (Auto) 57.2 % Lymph % (Auto) 32.4 % [place] % (Auto) 9.2 % Eos % (Auto) 0.0 % Baso % (Auto) 0.4 % Neut # (Auto) 1.50 (1.40-6.50) K/uL Lymph # (Auto) 0.85 L (1.20-3.40) K/uL [place] # (Auto) 0.24 (0.11-0.59) K/uL Eos # (Auto) 0.00 (0.00-0.50) K/uL Baso # (Auto) 0.01 (0.00-0.20) K/uL Immature Gran # (Auto) 0.02 (0.01-0.20) K/uL Sodium 142 (136-145) mmol/L Potassium 3.5 (3.5-5.1) mmol/L Chloride 113 H (98-107) mmol/L Carbon Dioxide 23 (21-32) mmol/L Anion Gap 6 (3-11) BUN 13 (6-23) mg/dl Creatinine 0.69 (0.6-1.2) mg/dl Est Cr Clr Drug Dosing 59.4 ml/min eGFR 87.13 BUN/Creatinine Ratio 18.8 (10-20) Glucose 120 H (70-99(Fasting)) mg/dl Calcium 7.7 L (8.6-10.3) mg/dl Magnesium 2.1 (1.7-2.4) mg/dl Total Bilirubin 0.6 (0.2-1.0) mg/dl AST 30 (13-39) U/L ALT 124 H (7-52) U/L Alkaline Phosphatase 140 H (34-104) U/L Total Protein 4.5 L (6.0-8.3) gm/dl Albumin 2.5 L (3.4-5.0) gm/dl Globulin 2.0 L (2.5-4.0) gm/dl Albumin/Globulin Ratio 1.3 (0.9-2) Bld Cult ID Panel PCR PCR Panel Negative (NotDetected) Microbiology 07/07/24 00:26 Aerobic Blood Culture - Preliminary Blood No growth in Aerobic bottle after 24 hours. Anaerobic Blood Culture - Preliminary No growth in Anaerobic bottle after 24 hours. 07/06/24 23:50 Aerobic Blood Culture - Preliminary Blood No growth in Aerobic bottle after 24 hours. Anaerobic Blood Culture - Preliminary Gram negative bacilli
[2024-07-08] MEDS: LACTATED RINGER'S 1,000 ML IV SCH (11:48)
--- NOTE | 2024-07-08 16:23 | Hematology/Oncology Prog Note ---
Date of Service July 08, 2024 Assessment & Plan (1) Sepsis: (2) Diverticulitis of colon with perforation: (3) Breast cancer: Plan -Appears to be doing better clinically. Consider obtaining blood culture from [facility]. Will have to discuss with infectious disease to see if [facility] needs to be removed given positive blood culture. -Thrombocytopenia and anemia likely due to chemotherapy treatments. Continue monitoring. Transfuse for hemoglobin less than 7.5 and platelet count less than 15,000 Admission and Anticipated Discharge Date Admission Date: July 07, 2024 Subjective Doing much better today. Blood culture positive for gram-negative bacilli. Currently on Zosyn.ANC now normal. Hemoglobin decreased to 8.3 with hematocrit of 24. She denies any abnormal bleeding Results & Data Vital Signs (Past 12 Hours) Vital Signs Temp Pulse Pulse Resp BP Pulse Ox O2 Del Method 07/08/24 16:00 83 07/08/24 15:47 36.7 C 85 17 154/80 H 94 Room Air 07/08/24 10:50 35.8 C L 85 16 127/63 95 Room Air 07/08/24 08:00 79 07/08/24 07:34 36.9 C 82 20 123/66 95 Room Air (3) Breast cancer Breast location: unspecified site of breast Estrogen receptor status: unspecified Laterality: unspecified laterality Patient sex: female Qualified Code(s): C50.919 - Malignant neoplasm of unspecified site of unspecified female breast
[2024-07-09] MEDS: LEVOTHYROXINE SODIUM 112 MCG TABLET PO SCH (05:39)
[2024-07-09 07:19] LABS: Basophils # (auto) 0.01 K/uL (0.00-0.20); Basophils % (auto) 0.3 %; Hematocrit (blood only) 23.5 % (37.0-47.0); Hemoglobin 8.1 g/dl (12.0-16.0); Immature Granulocytes # (auto) 0.02 K/uL (0.01-0.20); Immature Granulocytes % (auto) 0.6 %; Lymphocytes # (auto) 0.83 K/uL (1.20-3.40); Lymphocytes % (auto) 24.2 %; Mean Corpuscular Hemoglobin 30.9 pg (25.0-34.0); Mean Corpuscular Hgb Conc 34.5 g/dL (32.0-36.0); Mean Corpuscular Volume 89.7 fL (80.0-100.0); Monocytes # (auto) 0.23 K/uL (0.11-0.59); Monocytes % (auto) 6.7 %; Neutrophils # (auto) 2.34 K/uL (1.40-6.50); Neutrophils % (auto) 68.2 %; Platelet Count 160 K/uL (130-400); RDW Coefficient of Variation 17.8 % (11.5-14.5); RDW Standard Deviation 57.6 fL (36.4-46.3); Red Blood Count 2.62 M/uL (4.20-5.40); White Blood Count 3.43 K/ul (4.8-10.8)
[2024-07-09 07:37] LABS: Albumin Globulin Ratio 1.1 (0.9-2); Albumin Level 2.4 gm/dl (3.4-5.0); BUN Creatinine Ratio 20.3 (10-20); Bilirubin,Total 0.5 mg/dl (0.2-1.0); Calcium 8.1 mg/dl (8.6-10.3); Creatinine Clr Calc Pharmacy 63.7 ml/min; Globulin 2.2 gm/dl (2.5-4.0); Total Protein 4.6 gm/dl (6.0-8.3)
[2024-07-09] MEDS: POTASSIUM CHLORIDE CRTAB 20 MEQ TABCR PO SCH (08:55)
--- NOTE | 2024-07-09 10:05 | Surgery Progress Note ---
Date of Service July 09, 2024 Assessment & Plan (1) Status post chemotherapy: (2) Diverticular disease of intestine with perforation and abscess: (3) Pancytopenia due to chemotherapy: (4) Steroid dependence: Plan 83-year-old woman, on chemotherapy for triple negative breast cancer, on steroids for hepatitis due to pembrolizumab therapy, presents with diverticulitis with possible Microperforation and possible developing abscess. - avss - pancytopenic - + blood culture for gram negative bacilli - Reviewed with IR, no drainable fluid collection at this time. - pain improving +bowel function Plan: continue IV antibiotics continue pain management as needed Clear liquids continue medical management Dr. Matos has seen and examined patient. Admission and Anticipated Discharge Date Admission Date: July 07, 2024 Subjective abdominal pain better normal bowel movement this morning, no blood no n,v would like some liquids Physical Exam Constitutional: WD/WN, vitals as above cooperative and comfortable; no acute distress and not ill appearing Respiratory: normal respiratory effort; no respiratory distress and no labored breathing Chest (Breasts): Chest: + vascular access device or port (of right upper chest without erythema) Gastrointestinal (Abdomen): Inspection/Auscultation: abdomen normal to inspection and + abdominal edema; abdomen not distended Percussion/Palpation: + abdomen tender (right low to mid abdomen, improved) and abdomen soft; no guarding, abdomen not rigid and abdomen not firm Skin: no rashes, warm and dry Psychiatric: A+Ox3, euthymic affect Results & Data Vital Signs (Past 12 Hours) Vital Signs Temp Pulse Pulse Resp BP Pulse Ox O2 Del Method 07/09/24 08:00 85 07/09/24 07:48 36.3 C L 79 20 149/69 H 91 Room Air 07/09/24 03:31 36.9 C 79 18 145/80 H 95 Room Air 07/08/24 23:03 36.6 C 84 18 153/81 H 97 Room Air Laboratory Results 07/09/24 Range/Units 06:26 WBC 3.43 L (4.8-10.8) K/ul RBC 2.62 L (4.20-5.40) M/uL Hgb 8.1 L (12.0-16.0) g/dl Hct 23.5 L (37.0-47.0) % MCV 89.7 (80.0-100.0) fL MCH 30.9 (25.0-34.0) pg MCHC 34.5 (32.0-36.0) g/dL RDW Std Deviation 57.6 H (36.4-46.3) fL RDW Coeff of Herminio 17.8 H (11.5-14.5) % Plt Count 160 (130-400) K/uL MPV 11.0 (9.4-12.4) fL Immature Gran % (Auto) 0.6 % Neut % (Auto) 68.2 % Lymph % (Auto) 24.2 % [place] % (Auto) 6.7 % Eos % (Auto) 0.0 % Baso % (Auto) 0.3 % Neut # (Auto) 2.34 (1.40-6.50) K/uL Lymph # (Auto) 0.83 L (1.20-3.40) K/uL [place] # (Auto) 0.23 (0.11-0.59) K/uL Eos # (Auto) 0.00 (0.00-0.50) K/uL Baso # (Auto) 0.01 (0.00-0.20) K/uL Immature Gran # (Auto) 0.02 (0.01-0.20) K/uL Sodium 141 (136-145) mmol/L Potassium 3.0 L (3.5-5.1) mmol/L Chloride 109 H (98-107) mmol/L Carbon Dioxide 24 (21-32) mmol/L Anion Gap 8 (3-11) BUN 13 (6-23) mg/dl Creatinine 0.64 (0.6-1.2) mg/dl Est Cr Clr Drug Dosing 63.7 ml/min eGFR 88.73 BUN/Creatinine Ratio 20.3 H (10-20) Glucose 119 H (70-99(Fasting)) mg/dl Calcium 8.1 L (8.6-10.3) mg/dl Total Bilirubin 0.5 (0.2-1.0) mg/dl AST 19 (13-39) U/L ALT 89 H (7-52) U/L Alkaline Phosphatase 122 H (34-104) U/L Total Protein 4.6 L (6.0-8.3) gm/dl Albumin 2.4 L (3.4-5.0) gm/dl Globulin 2.2 L (2.5-4.0) gm/dl Albumin/Globulin Ratio 1.1 (0.9-2)
--- NOTE | 2024-07-09 11:31 | Hospitalist Progress Note ---
Date of Service July 09, 2024 Assessment & Plan (1) Diverticular disease of intestine with perforation and abscess: Plan: Metabolic encephalopathy, Sepsis POA Presented with severe abdominal pain with nausea since discharge on 07/05 (admission for dehydration) with recent admission 06/26 - 06/[address] A/P: Acute sigmoid diverticulitis with peridiverticular abscess measuring 34 x 17 mm. Mild Pneumoperitoneum, possible perforated diverticulitis. C.diff negative, other stool studies pending Blood cultures: 10/06 Bacteroides thetaiotaomicr --> ID consulted with port in p lace Continue Zosyn - dapto discontinued after 48 hours without GP growth Pantoprazole 40 mg IV twice daily Consult general surgery, Dr. Matos - no indication for urgent surgical intervention - no drainable abscess per IR--> if not clinically improving in a few days, repeat CT to look for enlarging abscess more amenable to IR drainage - advanced to Clear liquids Hgb 11.3-->8.3 --> 8.1 possible dilutional component and recent chemo - continue to monitor with AM labs. clinically no signs of active bleeding Pain control: p.o. Tylenol and oxycodone, as needed IV morphine AM CBC and CMP (2) Steroid dependence: Plan: For transaminitis secondary to Pemobrolizumab Home prednisone, decreased to 40 mg daily on 06/25 Continue hydrocortisone 50 mg IV every 8 hours Monitor LFTs while inpatient (3) Hypokalemia: Plan: Potassium 3.2 on arrival --> KCl added to IVF on admission Also with Hypomag --> replaced IV K dropped to 3.0, in the setting of national fluids shortage 40 mg twice daily x 3 doses Recheck BMP a.m. (4) Breast cancer: Plan: Has completed of of chemotherapy Consult oncology Dr. Tobin - no further chemo. Plan for outpatient restaging scan and then discuss possible surgery - consider Neupogen if ANC is below 1000 Plan Chronic stable medical conditions: * HTN - resume losartan at reduced dose 50 mg * hypothyroid - continue synthroid Dispo: continued inpatient stay DVT proh: Lovenox updated by phone 07/07, 07/09 and in person 07/08 Admission and Anticipated Discharge Date Admission Date: July 07, 2024 Supervising Physician Co-Signing Physician Notes Attending Attestation - Chart reviewed, care plan d/w VALORIE Mota. I agree w/ the hernández components of her documentation. Appreciate gen surg assistance & recs. Riley Liriano MD Subjective Patient seen lying in bed, no family present at bedside. states she did have a solid bowel movement yesterday. Pain has started to improve. discussed ID consult, agreeable Tele SR PACs 80s Review of Systems Review of Systems: All systems reviewed & are unremarkable except as noted in Subjective Physical Exam Physical Exam: General: NAD, VS as above Resp: normal respiratory effort, lungs clear to auscultation CV: RRR, no murmur, Abd: normal bowel sounds, mild tenderness LLQ and RLQ Extremities: Moves all extremities, no edema Neuro: A&O x3, Skin: intact, no lesions noted Results & Data Results & Data Vital Signs (Past 12 Hours) Vital Signs Temp Pulse Pulse Resp BP Pulse Ox O2 Del Method 07/09/24 08:00 85 07/09/24 07:48 97.3 F L 79 20 149/69 H 91 Room Air 07/09/24 03:31 98.4 F 79 18 145/80 H 95 Room Air Laboratory Results CBC and chemistry reviewed PG Care Time/CCT Total # of Minutes Spent Total Time Spent with Patient: Total time spent is greater than 50% in coordination of care (as documented) at patient's floor/unit and/or counseling patient: Coding Level of Care Code 36914 SUB INP/OBS CARE 2/35MIN Diagnoses Diverticular disease of intestine with perforation and abscess K57.80 Steroid dependence F19.20 Hypokalemia E87.6 Breast cancer C50.919 Breast location: unspecified site of breast Estrogen receptor status: unspecified Laterality: unspecified laterality Patient sex: female (4) Breast cancer Breast location: unspecified site of breast Estrogen receptor status: unspecified Laterality: unspecified laterality Patient sex: female Qualified Code(s): C50.919 - Malignant neoplasm of unspecified site of unspecified female breast
--- NOTE | 2024-07-09 15:08 | Infectious Disease Consult ---
Date of Consultation July 09, 2024 Assessment & Plan (1) Status post chemotherapy: (2) Diverticular disease of intestine with perforation and abscess: (3) Pneumoperitoneum: (4) Pancytopenia due to chemotherapy: Plan This is an 83-year-old female with a history of triple negative breast cancer on chemotherapy (carboplatin, paclitaxel) via port (last treatment 07/02), steroid dependent, hypertension, bilateral hip replacements, bilateral knee replacement, recently admitted for Klebsiella pneumonia UTI (06/26 - 06/28, status post ceftriaxone inpatient, discharged on 7 days of cefpodoxime), presented again on 07/03 - 07/05 a day after chemotherapy with AMS and fever. She was noted to be pancytopenic. Filgrastim was administered. She was discharged. She now presents on 07/06 with increasing fatigue and confusion. In the ED, she was febrile with a T of 38.3, pulse 128, RR 22, blood pressure 150/103, 98% on room air.. Labs WBC 2.64, platelets 109, ANC 1.26, BUN 12, creatinine 0.7, procalcitonin 0.13,AST 53, ALT 206, alk phos 210. Urinalysis results not consistent with infection. Respiratory viral panel negative.On exam she was found to have a distended abdomen that was tender. CTAP showed finding suggestive of acute sigmoid diverticulitis with a peridiverticular abscess. There was some mild pneumoperitoneum, concerning for perforated diverticulitis. She was evaluated by surgery and no surgical intervention was warranted. Per IR there was no drainable abscess. Blood cultures now growing Bacteroides species. She is on Zosyn. Fevers have resolved. ID consulted for gram-negative melba bacteremia. Microbiology Blood cultures 07/06 (23: 50) / bottles Bacteroides thetaiotaomicr grp Blood cultures 07/07 (00: 26) (part of 07/06 set): NGTD Antibiotics: Daptomycin 07/06 - 07/08 Zosyn 07/06ongoing # Acute sigmoid diverticulitis with possible perforation and sarah-diverticular abscess # Bacteroides bacteremia # Breast cancer on chemotherapy # Port a cath in place # Leukopenic, not neutropenic (ANC greater than 1000) # Transaminitis # Recent Klebsiella pneumoniae UTI # Status post bilateral hip replacements # Status post bilateral knee replacements # Status post ankle surgery with screw in place # Chronic steroid use (40 mg daily) # Moxifloxacin allergy; unk rxn Discussion: Source of Bacteroides bacteremia likely from gut translocation in the setting of acute diverticulitis with possible perforation and peridiverticular abscess. There are no plan for surgical intervention at this time. Per IR, the abscess is not drainable. She has multiple hardware in place. There is no evidence of fungemia, Staph aureus or Pseudomonas bacteremia. In these cases port removal recommended. She remains hemodynamically stable. Recommendations: Continue Zosyn 4.5 g IV every 8 hours Monitor clinically, if she decompensates: Fever, worsening leukopenia, hemodynamic instability, increasing abdominal pain, would repeat CT to evaluate for progression of abscess and need for surgical or IR intervention. Repeat blood cultures ordered. Although this is a gram-negative and likely source is the abdomen, will repeat given her multiple prosthetics/hardware and immunocompromise state to ensure clearance. Chart review/Econsult completed as no telepresenter at time of consult Thank you for this consult. ID will continue to follow Rojelio Sorto MD, MPH Infectious Disease [facility], [facility] Call [phone] with questions Consultation Information This patient recommendation is based on a telemedicine consult request which was completed asynchronously through chart review and information provided by the primary physician. The patient was not seen or examined today. The evaluation is consultative in nature and all patient care and treatment decisions can either be accepted or rejected by the patient's primary hospital-based treating physician using their own independent medical judgment for their patient. [facility] contact information: Please call [facility] Call Center . (Phone Number For Physician Use Only) Time Spent Reviewing Chart: 31+ minutes History of Present Illness Reason for Consultation: GNR Bacteremia Requesting Physician: VALORIE Taylor Attending Physician: Riley Liriano MD History of Present Illness This is an 83-year-old female with a history of triple negative breast cancer on chemotherapy (carboplatin, paclitaxel) via port (last treatment 07/02), steroid dependent, hypertension, bilateral hip replacements, bilateral knee replacement, recently admitted for Klebsiella pneumonia UTI (06/26 - 06/28, status post ceftriaxone inpatient, discharged on 7 days of cefpodoxime), presented again on 07/03 - 07/05 a day after chemotherapy with AMS and fever. She was noted to be pancytopenic. Filgrastim was administered. She was discharged. She now presents on 07/06 with increasing fatigue and confusion. In the ED, she was febrile with a T of 38.3, pulse 128, RR 22, blood pressure 150/103, 98% on room air.. Labs WBC 2.64, platelets 109, ANC 1.26, BUN 12, creatinine 0.7, procalcitonin 0.13,AST 53, ALT 206, alk phos 210. Urinalysis results not consistent with infection. Respiratory viral panel negative.On exam she was found to have a distended abdomen that was tender. CTAP showed finding suggestive of acute sigmoid diverticulitis with a peridiverticular abscess. There was some mild pneumoperitoneum, concerning for perforated diverticulitis. She was evaluated by surgery and no surgical intervention was warranted. Per IR there was no drainable abscess. Blood cultures now growing Bacteroides species. She is on Zosyn. Fevers have resolved. ID consulted for gram-negative melba bacteremia. Allergies Allergy/AdvReac Type Severity Reaction Status Date / Time lisinopril AdvReac Mild cough Verified 07/06/24 09:28 moxifloxacin AdvReac Unknown Unknown Verified 07/06/24 09:28 Home Medications Medication Instructions Recorded Confirmed Type cholecalciferol (vitamin D3) 25 25 mcg PO QAM 02/14/23 07/08/24 History mcg (1,000 unit) tablet (Vitamin D3) coenzyme Q10 200 mg capsule (Co 200 mg PO QAM 02/14/23 07/08/24 History Q-10) levothyroxine 112 mcg tablet 112 mcg PO QAM 02/14/23 07/08/24 History losartan 100 mg tablet 100 mg PO QAM 02/14/23 07/08/24 History multivitamin 1 tab PO QAM 02/14/23 07/08/24 History acetaminophen 500 mg tablet 500 mg PO Q8H PRN Pain 04/17/24 07/08/24 History dicyclomine 20 mg tablet 20 mg PO QID PRN abdominal pain 05/26/24 07/08/24 Rx #60 tabs diphenoxylate-atropine 2.5 1 tab PO QID PRN Diarrhea 06/26/24 07/08/24 History mg-0.025 mg tablet potassium chloride 20 mEq 40 meq PO DAILY 06/26/24 07/06/24 History tablet,extended release prochlorperazine maleate 10 mg 10 mg PO Q6H PRN n/v 06/26/24 07/08/24 History tablet ondansetron 8 mg disintegrating 8 mg PO Q8H PRN n/v #30 tabs 07/06/24 07/08/24 Rx tablet prednisone 20 mg tablet 40 mg PO DAILY 07/06/24 07/08/24 History Patient History Medical History Tachycardia Transaminitis Fall UTI (urinary tract infection) Arthritis Triple negative breast cancer Hypertension Hypothyroid Triple negative breast cancer Left Arthritis Hypothyroid Hypertension Cervical spinal stenosis s/p steroid injection Surgical History Port-A-Cath in place (04/21/24) Insertion Access Port with Fluroscopy(Not Applicable) - Mateo Mahan DO S/P tubal ligation H/O liposuction of abdomen Hx of bilateral cataract extraction (03/2023) History of ankle surgery screw in right ankle Hx of colonoscopy 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 knee replacement (2002) History of breast mammoplasty (1979) b/l Family History Mother Breast cancer Diabetes Hypertension Grandmother (Maternal) Breast cancer Father Colorectal cancer Hypertension Grandmother (Paternal) Colorectal cancer Grandfather (Paternal) Lung cancer Other No family history of adverse response to anesthesia Denies family history of Ovarian cancer Prostate cancer Myocardial infarction Social History Smoking Status: Never smoker Second Hand Exposure: Yes; Do You Dip or Chew Tobacco: No; Hx Alcohol Use: Yes Alcohol type: beer and wine Alcohol Intake Frequency: Monthly or Less Hx Substance Use: No Preferred Language: Urdu Communication Ability: Effective 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[place] Production Supervisor Required: No Beliefs That Will Affect Care: Yarsanism Yarsanism Beliefs: muslim marital status: Current Living Situation: Spouse current occupational status: retired How many Children do You have: 3 Feels Safe at Home: Yes Childhood Exposure to Second-Hand Smoke: No Diet: regular during the past year weight has: remained stable Dental Care, Regularly: Yes Physical Activity Frequency: 3-4 Times per Week Seatbelt Use: always Sunscreen Use: Yes Assistive Devices: None Results & Data Vital Signs (Past 12 Hours) Vital Signs Temp Pulse Pulse Resp BP Pulse Ox O2 Del Method 07/09/24 14:53 78 07/09/24 11:10 36.2 C L 71 18 153/75 H 96 Room Air 07/09/24 08:00 85 07/09/24 07:48 36.3 C L 79 20 149/69 H 91 Room Air 07/09/24 03:31 36.9 C 79 18 145/80 H 95 Room Air Laboratory Results Laboratory Results - last 48 hr 07/06/24 07/08/24 07/09/24 23:50 05:50 06:26 WBC 2.62 L 3.43 L RBC 2.63 L 2.62 L Hgb 8.3 L D 8.1 L Hct 24.0 L 23.5 L MCV 91.3 89.7 MCH 31.6 30.9 MCHC 34.6 34.5 RDW Std Deviation 57.2 H 57.6 H RDW Coeff of Herminio 17.4 H 17.8 H Plt Count 121 L 160 MPV 10.7 11.0 Immature Gran % (Auto) 0.8 0.6 Neut % (Auto) 57.2 68.2 Lymph % (Auto) 32.4 24.2 [place] % (Auto) 9.2 6.7 Eos % (Auto) 0.0 0.0 Baso % (Auto) 0.4 0.3 Neut # (Auto) 1.50 2.34 Lymph # (Auto) 0.85 L 0.83 L [place] # (Auto) 0.24 0.23 Eos # (Auto) 0.00 0.00 Baso # (Auto) 0.01 0.01 Immature Gran # (Auto) 0.02 0.02 Sodium 142 141 Potassium 3.5 3.0 L Chloride 113 H 109 H Carbon Dioxide 23 24 Anion Gap 6 8 BUN 13 13 Creatinine 0.69 0.64 Est Cr Clr Drug Dosing 59.4 63.7 eGFR 87.13 88.73 BUN/Creatinine Ratio 18.8 20.3 H Glucose 120 H 119 H Calcium 7.7 L 8.1 L Magnesium 2.1 Total Bilirubin 0.6 0.5 AST 30 19 ALT 124 H 89 H Alkaline Phosphatase 140 H 122 H Total Protein 4.5 L 4.6 L Albumin 2.5 L 2.4 L Globulin 2.0 L 2.2 L Albumin/Globulin Ratio 1.3 1.1 Bld Cult ID Panel PCR PCR Panel Negative Diagnostic Findings Microbiology 07/06/24 23:50 Blood Aerobic Blood Culture - Preliminary Bacteroides thetaiotaomicr grp 07/06/24 23:50 Blood Anaerobic Blood Culture - Preliminary Bacteroides thetaiotaomicr grp 07/07/24 00:26 Blood Aerobic Blood Culture - Preliminary No growth in Aerobic bottle after 48 hours. 07/07/24 00:26 Blood Anaerobic Blood Culture - Preliminary No growth in Anaerobic bottle after 48 hours. Chest X-Ray 07/06/24 23:54 EXAM: XR chest 1V portable CLINICAL HISTORY: WEAKNESS JMF INPATIENT TECHNIQUE: X-ray image of the chest is obtained in AP portable projection. COMPARISON: Comparison with the previous study dated 07/03/2024. FINDINGS: Pulmonary Parenchyma: Prominent both reena with prominent mainly interstitial markings for clinical correlation. Evidence of an elliptical opacity seen related to the lower aspect of the right lateral chest wall No evidence of consolidation, collapse, or focal opacities. No pulmonary nodules are identified. No evidence of pleural effusion or pleural thickening. Heart and Mediastinum: Heart size and shape are normal. No mediastinal widening or masses. No hilar or mediastinal lymphadenopathy. Bony Thorax: The bony thorax appears intact without fractures or deformities. Soft Tissues: Tip of the permacath is seen in situ at normal cavoatrial level. Soft tissues overlying the chest wall are unremarkable. Bilateral breast augmentation is seen IMPRESSION: 1. Bilateral mainly basal interstitial lung markings ( relative decrease in comparison with the previous study). 2. Elliptical soft tissue density is seen projected over the lower part of the right chest wall ?? which may suggest the right breast fold for clinical correlation. Electronically signed by Flori Cruz 07-07-2024 01:51 AM Abdomen/Pelvis CT 07/07/24 00:18 EXAM: CT abd pelvis IV con only CLINICAL HISTORY: 93 ML OPTIRAY 320 PAIN IN ABD INPATIENT TECHNIQUE: CT of the abdomen and pelvis was performed with contrast, with the following protocol: axial images with, and reconstructed coronal and sagittal images. One of the following dose reduction techniques was utilized for this exam: Automated exposure control, adjustment of the mA and/or kV according to patient size, and use of iterative reconstruction. COMPARISON: No prior studies are available for comparison. FINDINGS: The visualized sections through the lower chest demonstrate bilateral breast implants with asymmetric deformity in the right breast implant showing a bulge medially and interrupted rim calcification. Advise clinical correlation and further evaluation with ultrasound if required clinically. Fibro-atelectatic changes are seen at both the lung bases. Abdomen: Liver: Normal in size, shape, and density. Sub-5 mm hepatic segment 4A, segment 8 and segment 6 hypodensities likely represent simple cysts. No masses were identified. Hepatic vasculature and biliary ducts are unremarkable. Gallbladder and Biliary System: The gallbladder is normal in size and shape. No wall thickening, pericholecystic fluid, or gallstones were identified. The common bile duct is normal in caliber without dilation. Pancreas: Pancreatic head, body, and tail are visualized and appear normal in size and density. No pancreatic masses or calcifications were noted. The pancreatic duct is not dilated. Spleen: Normal in size, shape, and density. No splenic lesions or masses were identified. Kidneys and Adrenal Glands: Both kidneys are normal in size, shape, and position. Cortical thickness is within normal limits. Bilateral renal cortical and parapelvic cysts are suggested. No renal calculi or hydronephrosis. Adrenal glands are unremarkable with no evidence of masses or hyperplasia. Pelvis: Urinary Bladder: Normal in contour and wall thickness. No intraluminal lesions identified. Uterus: Normal in size and contour. No masses or abnormal thickening. Ovaries: Not well visualized but no gross abnormalities noted. Vagina: Normal in contour and wall thickness. Cervix: No evidence of mass or abnormal thickening. Peritoneal and Retroperitoneal Structures: No free fluid or abnormal fluid collections were identified within the abdomen or pelvis. No lymphadenopathy was noted. Bowel: Extensive sigmoid colon diverticulosis along with circumferential edematous mural thickening, mild pericolonic fat smudging, and free fluid. Findings are suggestive of acute sigmoid diverticulitis. with sarah-colic small cystic collection with air-fluid level measuring 34x17 mm, could be an abscess Segmental dilatation of a few of the lower abdominal small bowel loops is likely reactionary. The appendix is not discretely visualized. Mild pneumoperitoneum noted, denoting possible perforated diverticulitis. Bones and Soft Tissues: Mild degenerative changes are seen in the spine. Inevitable streak artifacts from bilateral hip arthroplasty are noted. IMPRESSION: 1. Extensive sigmoid colon diverticulosis along with circumferential edematous mural thickening, mild pericolonic fat smudging, and free fluid. Findings are suggestive of acute sigmoid diverticulitis with a sarah-diverticular abscess. 2. Mild pneumoperitoneum noted, denoting possible perforated diverticulitis. 3. A few subcentimeter simple hepatic cysts are noted. 4. Bilateral renal cortical and parapelvic cysts are suggested. 5. Asymmetric deformity of the partially covered right breast implant. Advise clinical correlation and further evaluation with ultrasound if required clinically. Electronically signed by Krista Hua 07-07-2024 03:12 AM Medications Administered Home Medications Medication Instructions Recorded Confirmed Last Taken cholecalciferol (vitamin D3) 25 25 mcg PO QAM 02/14/23 07/08/24 04/18/24 mcg (1,000 unit) tablet (Vitamin D3) coenzyme Q10 200 mg capsule (Co 200 mg PO QAM 02/14/23 07/08/24 04/18/24 Q-10) levothyroxine 112 mcg tablet 112 mcg PO QAM 02/14/23 07/08/24 04/20/24 22:00 losartan 100 mg tablet 100 mg PO QAM 02/14/23 07/08/24 04/19/24 02:00 multivitamin 1 tab PO QAM 02/14/23 07/08/24 04/18/24 acetaminophen 500 mg tablet 500 mg PO Q8H PRN Pain 04/17/24 07/08/24 Unknown dicyclomine 20 mg tablet 20 mg PO QID PRN abdominal pain 05/26/24 07/08/24 Unknown #60 tabs diphenoxylate-atropine 2.5 1 tab PO QID PRN Diarrhea 06/26/24 07/08/24 Unknown mg-0.025 mg tablet potassium chloride 20 mEq 40 meq PO DAILY 06/26/24 07/06/24 Unknown tablet,extended release prochlorperazine maleate 10 mg 10 mg PO Q6H PRN n/v 06/26/24 07/08/24 Unknown tablet ondansetron 8 mg disintegrating 8 mg PO Q8H PRN n/v #30 tabs 07/06/24 07/08/24 Unknown tablet prednisone 20 mg tablet 40 mg PO DAILY 07/06/24 07/08/24 Unknown Active Medications Generic Name Dose Route Start Last Admin Trade Name Raymond PRN Reason Stop Dose Admin Hydrocortisone Sodium 1 mls @ 4 mls/min 07/07/24 05:30 07/09/24 13:46 Succinate 50 mg/ Syringe IV 08/06/24 05:14 4 mls/min Q8H BILLIE Administration Pantoprazole Sodium 40 mg in 10 mls @ 5 mls/min 07/07/24 09:00 07/09/24 08:54 Protonix IV 08/06/24 08:59 5 mls/min BID BILLIE Administration Piperacillin Sod/Tazobactam Sod 4.5 gm in 100 mls @ 25 mls/hr 07/07/24 07:00 07/09/24 11:59 Zosyn IV 07/17/24 06:59 Infused Q8H BILLIE Infusion Protocol Levothyroxine Sodium 112 mcg 07/09/24 06:30 07/09/24 05:39 Levothyroxine Sodium 112 Mcg Tablet PO 08/08/24 06:29 112 mcg DAILYBB BILLIE Administration Morphine Sulfate 4 mg 07/07/24 06:41 07/08/24 03:06 Morphine Sulfate 4 Mg/Ml 1 Ml Carp\Vial IV 07/21/24 06:40 4 mg Q3H PRN Administration Severe Pain (Scale 7, 8, 9,10) Morphine Sulfate 2 mg 07/07/24 06:41 07/08/24 09:04 Morphine Sulfate 2 Mg/Ml Carp IV 07/21/24 06:40 2 mg Q3H PRN Administration Moderate Pain (Scale 4, 5, 6) Potassium Chloride 40 meq 07/09/24 09:00 07/09/24 08:55 Potassium Chloride Crtab 20 Meq Tabcr PO 07/10/24 09:01 40 meq BID BILLIE Administration
[2024-07-09] MEDS: LOSARTAN POTASSIUM 50 MG TAB PO SCH (15:27)
[2024-07-09] MEDS: ACETAMINOPHEN 325 MG TAB PO PRN (20:34)
[2024-07-10 06:39] LABS: Hematocrit (blood only) 23.4 % (37.0-47.0); Hemoglobin 8.1 g/dl (12.0-16.0); Immature Granulocytes # (auto) 0.05 K/uL (0.01-0.20); Immature Granulocytes % (auto) 1.4 %; Lymphocytes # (auto) 0.91 K/uL (1.20-3.40); Lymphocytes % (auto) 24.8 %; Mean Corpuscular Hgb Conc 34.6 g/dL (32.0-36.0); Mean Corpuscular Volume 89.7 fL (80.0-100.0); Mean Platelet Volume 10.8 fL (9.4-12.4); Monocytes # (auto) 0.26 K/uL (0.11-0.59); Monocytes % (auto) 7.1 %; Neutrophils # (auto) 2.45 K/uL (1.40-6.50); Neutrophils % (auto) 66.7 %; Platelet Count 195 K/uL (130-400); RDW Coefficient of Variation 17.3 % (11.5-14.5); RDW Standard Deviation 56.6 fL (36.4-46.3); Red Blood Count 2.61 M/uL (4.20-5.40); White Blood Count 3.67 K/ul (4.8-10.8)
[2024-07-10 06:40] LABS: Albumin Globulin Ratio 1.1 (0.9-2); Albumin Level 2.3 gm/dl (3.4-5.0); BUN Creatinine Ratio 19.1 (10-20); Bilirubin,Total 0.4 mg/dl (0.2-1.0); Calcium 7.9 mg/dl (8.6-10.3); Creatinine Clr Calc Pharmacy 59.9 ml/min; Globulin 2.1 gm/dl (2.5-4.0); Potassium 3.7 mmol/L (3.5-5.1); Total Protein 4.4 gm/dl (6.0-8.3)
--- NOTE | 2024-07-10 09:36 | Surgery Progress Note ---
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 - avss - pancytopenic - + blood culture for gram negative bacilli 07/06 - Reviewed with IR, no drainable fluid collection at this time. - pain improving +bowel function Plan: continue IV antibiotics continue pain management as needed full liquids for lunch, soft diet for dinner continue medical management Likely will need aport removed in near future, repeat blood cultures obtained 07/09 from port , currently pending. No plans for further chemotherapy. Will discuss with [facility] surgery team as she is a Dr. Mahan patient. Can consider removal of aport next week. Dr. Matos has seen and examined patient. Admission and Anticipated Discharge Date Admission Date: July 07, 2024 Subjective feeling better abdominal pain improving normal bowel movement this morning, no blood no n,v tolerating full liquids no fevers Physical Exam Constitutional: WD/WN, vitals as above cooperative and comfortable; no acute distress and not ill appearing Respiratory: normal respiratory effort; no respiratory distress and no labored breathing Gastrointestinal (Abdomen): Inspection/Auscultation: abdomen normal to inspection; abdomen not distended Skin: no rashes, warm and dry Psychiatric: Orientation: alert and oriented x 3 Results & Data Vital Signs (Past 12 Hours) Vital Signs Temp Pulse Pulse Resp BP Pulse Ox O2 Del Method 07/10/24 08:03 36.9 C 79 16 128/75 98 Room Air 07/10/24 02:24 36.6 C 70 18 150/80 H 98 Room Air 07/09/24 22:51 36.6 C 70 18 146/76 H 95 Room Air 07/09/24 21:54 72 Laboratory Results 07/10/24 Range/Units 05:53 WBC 3.67 L (4.8-10.8) K/ul RBC 2.61 L (4.20-5.40) M/uL Hgb 8.1 L (12.0-16.0) g/dl Hct 23.4 L (37.0-47.0) % MCV 89.7 (80.0-100.0) fL MCH 31.0 (25.0-34.0) pg MCHC 34.6 (32.0-36.0) g/dL RDW Std Deviation 56.6 H (36.4-46.3) fL RDW Coeff of Herminio 17.3 H (11.5-14.5) % Plt Count 195 (130-400) K/uL MPV 10.8 (9.4-12.4) fL Immature Gran % (Auto) 1.4 % Neut % (Auto) 66.7 % Lymph % (Auto) 24.8 % Riley % (Auto) 7.1 % Eos % (Auto) 0.0 % Baso % (Auto) 0.0 % Neut # (Auto) 2.45 (1.40-6.50) K/uL Lymph # (Auto) 0.91 L (1.20-3.40) K/uL Riley # (Auto) 0.26 (0.11-0.59) K/uL Eos # (Auto) 0.00 (0.00-0.50) K/uL Baso # (Auto) 0.00 (0.00-0.20) K/uL Immature Gran # (Auto) 0.05 (0.01-0.20) K/uL Sodium 141 (136-145) mmol/L Potassium 3.7 D (3.5-5.1) mmol/L Chloride 112 H (98-107) mmol/L Carbon Dioxide 26 (21-32) mmol/L Anion Gap 3 (3-11) BUN 13 (6-23) mg/dl Creatinine 0.68 (0.6-1.2) mg/dl Est Cr Clr Drug Dosing 59.9 ml/min eGFR 87.44 BUN/Creatinine Ratio 19.1 (10-20) Glucose 133 H (70-99(Fasting)) mg/dl Calcium 7.9 L (8.6-10.3) mg/dl Total Bilirubin 0.4 (0.2-1.0) mg/dl AST 15 (13-39) U/L ALT 66 H (7-52) U/L Alkaline Phosphatase 122 H (34-104) U/L Total Protein 4.4 L (6.0-8.3) gm/dl Albumin 2.3 L (3.4-5.0) gm/dl Globulin 2.1 L (2.5-4.0) gm/dl Albumin/Globulin Ratio 1.1 (0.9-2) Microbiology 07/06/24 23:50 Aerobic Blood Culture - Preliminary Blood Bacteroides thetaiotaomicr grp Anaerobic Blood Culture - Preliminary Bacteroides thetaiotaomicr grp
--- NOTE | 2024-07-10 09:51 | Infectious Disease Progress Nt ---
Date of Service July 10, 2024 Assessment & Plan (1) Status post chemotherapy: (2) Diverticular disease of intestine with perforation and abscess: (3) Pneumoperitoneum: (4) Pancytopenia due to chemotherapy: Plan This is an 83-year-old female with a history of triple negative breast cancer on chemotherapy (carboplatin, paclitaxel) via port (last treatment 07/02), steroid dependent, hypertension, bilateral hip replacements, bilateral knee replacement, recently admitted for Klebsiella pneumonia UTI (06/26 - 06/28, status post ceftriaxone inpatient, discharged on 7 days of cefpodoxime), presented again on 07/03 - 07/05 a day after chemotherapy with AMS and fever. She was noted to be pancytopenic. Filgrastim was administered. She was discharged. She now presents on 07/06 with increasing fatigue and confusion. In the ED, she was febrile with a T of 38.3, pulse 128, RR 22, blood pressure 150/103, 98% on room air.. Labs WBC 2.64, platelets 109, ANC 1.26, BUN 12, creatinine 0.7, procalcitonin 0.13,AST 53, ALT 206, alk phos 210. Urinalysis results not consistent with infection. Respiratory viral panel negative.On exam she was found to have a distended abdomen that was tender. CTAP showed finding suggestive of acute sigmoid diverticulitis with a peridiverticular abscess. There was some mild pneumoperitoneum, concerning for perforated diverticulitis. She was evaluated by surgery and no surgical intervention was warranted. Per IR there was no drainable abscess. Blood cultures now growing Bacteroides species. She is on Zosyn. Fevers have resolved. ID consulted for gram-negative melba bacteremia. on 07/10 She denies abdominal pain prior to admission. She admits that she had abdominal pain the day of admission, but not currenlty. Denies n/v/headache , fever, cough or issues at her port site. Microbiology Blood cultures 07/06 (23: 50) 2/ bottles Bacteroides thetaiotaomicr grp Blood cultures 07/07 (00: 26) (part of 07/06 set): NGTD Blood cultures 07/09 pending Antibiotics: Daptomycin 07/06 - 07/08 Zosyn 07/06ongoing # Acute sigmoid diverticulitis with possible perforation and sarah-diverticular abscess # Bacteroides bacteremia # Breast cancer on chemotherapy # Port a cath in place # Leukopenic, not neutropenic (ANC greater than 1000) # Transaminitis # Recent Klebsiella pneumoniae UTI # Status post bilateral hip replacements # Status post bilateral knee replacements # Status post ankle surgery with screw in place # Chronic steroid use (40 mg daily) # Moxifloxacin allergy; unk rxn Discussion: Source of Bacteroides bacteremia likely from gut translocation in the setting of acute diverticulitis with possible perforation and sarah diverticular abscess. There are no plan for surgical intervention at this time. Per IR, the abscess is not drainable. She has multiple hardware in place. There is no evidence of fungemia, Staph aureus or Pseudomonas bacteremia-->In cases of bacteremia with these org port removal recommended. She remains hemodynamically stable. Although this is a gram-negative and likely source is the abdomen, repeated BC given her multiple prosthetics/hardware and immunocompromise state to ensure clearance. She is pending port removal 07/13 Recommendations: Continue Zosyn 4.5 g IV every 8 hours Monitor clinically, if she decompensates: Fever, worsening leukopenia, hemodynamic instability, increasing abdominal pain, would repeat CT to evaluate for progression of abscess and need for surgical or IR intervention. Follow up Repeat blood cultures 07/09 - She reports that there are no additional plans for chemo, agree with port removal. Dw team ID will continue to follow. [facility] will not round over the weekend. Call [phone] with questions Rojelio Sorto MD, MPH Infectious Disease [facility], ID Division Admission and Anticipated Discharge Date Admission Date: July 07, 2024 Subjective Subsequent visit was provided via telemedicine using two-way real-time interactive telecommunication between the patient and the telemedicine provider. For the duration of the visit, the provider was performing the assessment from a different facility than the patient. This includesuse of bluetooth stethoscope forauscultationperformed by the telepresenter that the telemedicine provider can hear if described in the physical exam. Business Process Representative contact information: Please call [facility] Call Center [phone]. (Phone Number For Physician Use Only) After establishing a telemedicine visit, patient was: Patient was verified with two unique identifiers Time Spent with Patient: Subsequent => 35 min She is pending port removal 07/13. Has formed stool Denies abdominal pain, n/v Feels a bit" foggy" which she attributes to "chemo brain" Afebrile Physical Exam Physical Exam: Gen- NAD Neck- Supple Lungs- CTA, R chest port without surrounding erythema, warm , tenderness. Abd- soft, not tender, no guarding Ext- No knee effusions, hip and knee incisions well healed. R ankle incision well heeled. 1 + edema. No pain or tenderness at hip , knee, ankle Neuro- AAO times 3 Psych- Normal mood , cooperative. Results & Data Vital Signs (Past 12 Hours) Vital Signs Temp Pulse Pulse Resp BP Pulse Ox O2 Del Method 07/10/24 09:00 70 07/10/24 08:03 36.9 C 79 16 128/75 98 Room Air 07/10/24 02:24 36.6 C 70 18 150/80 H 98 Room Air 07/09/24 22:51 36.6 C 70 18 146/76 H 95 Room Air 07/09/24 21:54 72 Laboratory Results Laboratory Results - last 48 hr 07/09/24 07/10/24 06:26 05:53 WBC 3.43 L 3.67 L RBC 2.62 L 2.61 L Hgb 8.1 L 8.1 L Hct 23.5 L 23.4 L MCV 89.7 89.7 MCH 30.9 31.0 MCHC 34.5 34.6 RDW Std Deviation 57.6 H 56.6 H RDW Coeff of Herminio 17.8 H 17.3 H Plt Count 160 195 MPV 11.0 10.8 Immature Gran % (Auto) 0.6 1.4 Neut % (Auto) 68.2 66.7 Lymph % (Auto) 24.2 24.8 Boyd % (Auto) 6.7 7.1 Eos % (Auto) 0.0 0.0 Baso % (Auto) 0.3 0.0 Neut # (Auto) 2.34 2.45 Lymph # (Auto) 0.83 L 0.91 L Boyd # (Auto) 0.23 0.26 Eos # (Auto) 0.00 0.00 Baso # (Auto) 0.01 0.00 Immature Gran # (Auto) 0.02 0.05 Sodium 141 141 Potassium 3.0 L 3.7 D Chloride 109 H 112 H Carbon Dioxide 24 26 Anion Gap 8 3 BUN 13 13 Creatinine 0.64 0.68 Est Cr Clr Drug Dosing 63.7 59.9 eGFR 88.73 87.44 BUN/Creatinine Ratio 20.3 H 19.1 Glucose 119 H 133 H Calcium 8.1 L 7.9 L Total Bilirubin 0.5 0.4 AST 19 15 ALT 89 H 66 H Alkaline Phosphatase 122 H 122 H Total Protein 4.6 L 4.4 L Albumin 2.4 L 2.3 L Globulin 2.2 L 2.1 L Albumin/Globulin Ratio 1.1 1.1 Microbiology Diagnostic Findings 07/06/24 23:50 Blood Aerobic Blood Culture - Preliminary Bacteroides thetaiotaomicr grp 07/06/24 23:50 Blood Anaerobic Blood Culture - Preliminary Bacteroides thetaiotaomicr [facility] 07/07/24 00:26 Blood Aerobic Blood Culture - Preliminary No growth in Aerobic bottle after 48 hours. 07/07/24 00:26 Blood Anaerobic Blood Culture - Preliminary No growth in Anaerobic bottle after 48 hours. Chest X-Ray 07/06/24 23:54 EXAM: XR chest 1V portable CLINICAL HISTORY: [facility] INPATIENT TECHNIQUE: X-ray image of the chest is obtained in AP portable projection. COMPARISON: Comparison with the previous study dated 07/03/2024. FINDINGS: Pulmonary Parenchyma: Prominent both reena with prominent mainly interstitial markings for clinical correlation. Evidence of an elliptical opacity seen related to the lower aspect of the right lateral chest wall No evidence of consolidation, collapse, or focal opacities. No pulmonary nodules are identified. No evidence of pleural effusion or pleural thickening. Heart and Mediastinum: Heart size and shape are normal. No mediastinal widening or masses. No hilar or mediastinal lymphadenopathy. Bony Thorax: The bony thorax appears intact without fractures or deformities. Soft Tissues: Tip of the permacath is seen in situ at normal cavoatrial level. Soft tissues overlying the chest wall are unremarkable. Bilateral breast augmentation is seen IMPRESSION: 1. Bilateral mainly basal interstitial lung markings ( relative decrease in comparison with the previous study). 2. Elliptical soft tissue density is seen projected over the lower part of the right chest wall ?? which may suggest the right breast fold for clinical correlation. Electronically signed by Flori Cruz 07-07-2024 01:51 AM Abdomen/Pelvis CT 07/07/24 00:18 EXAM: CT abd pelvis IV con only CLINICAL HISTORY: 93 ML OPTIRAY 320 PAIN IN ABD INPATIENT TECHNIQUE: CT of the abdomen and pelvis was performed with contrast, with the following protocol: axial images with, and reconstructed coronal and sagittal images. One of the following dose reduction techniques was utilized for this exam: Automated exposure control, adjustment of the mA and/or kV according to patient size, and use of iterative reconstruction. COMPARISON: No prior studies are available for comparison. FINDINGS: The visualized sections through the lower chest demonstrate bilateral breast implants with asymmetric deformity in the right breast implant showing a bulge medially and interrupted rim calcification. Advise clinical correlation and further evaluation with ultrasound if required clinically. Fibro-atelectatic changes are seen at both the lung bases. Abdomen: Liver: Normal in size, shape, and density. Sub-5 mm hepatic segment 4A, segment 8 and segment 6 hypodensities likely represent simple cysts. No masses were identified. Hepatic vasculature and biliary ducts are unremarkable. Gallbladder and Biliary System: The gallbladder is normal in size and shape. No wall thickening, pericholecystic fluid, or gallstones were identified. The common bile duct is normal in caliber without dilation. Pancreas: Pancreatic head, body, and tail are visualized and appear normal in size and density. No pancreatic masses or calcifications were noted. The pancreatic duct is not dilated. Spleen: Normal in size, shape, and density. No splenic lesions or masses were identified. Kidneys and Adrenal Glands: Both kidneys are normal in size, shape, and position. Cortical thickness is within normal limits. Bilateral renal cortical and parapelvic cysts are suggested. No renal calculi or hydronephrosis. Adrenal glands are unremarkable with no evidence of masses or hyperplasia. Pelvis: Urinary Bladder: Normal in contour and wall thickness. No intraluminal lesions identified. Uterus: Normal in size and contour. No masses or abnormal thickening. Ovaries: Not well visualized but no gross abnormalities noted. Vagina: Normal in contour and wall thickness. Cervix: No evidence of mass or abnormal thickening. Peritoneal and Retroperitoneal Structures: No free fluid or abnormal fluid collections were identified within the abdomen or pelvis. No lymphadenopathy was noted. Bowel: Extensive sigmoid colon diverticulosis along with circumferential edematous mural thickening, mild pericolonic fat smudging, and free fluid. Findings are suggestive of acute sigmoid diverticulitis. with sarah-colic small cystic collection with air-fluid level measuring 34x17 mm, could be an abscess Segmental dilatation of a few of the lower abdominal small bowel loops is likely reactionary. The appendix is not discretely visualized. Mild pneumoperitoneum noted, denoting possible perforated diverticulitis. Bones and Soft Tissues: Mild degenerative changes are seen in the spine. Inevitable streak artifacts from bilateral hip arthroplasty are noted. IMPRESSION: 1. Extensive sigmoid colon diverticulosis along with circumferential edematous mural thickening, mild pericolonic fat smudging, and free fluid. Findings are suggestive of acute sigmoid diverticulitis with a sarah-diverticular abscess. 2. Mild pneumoperitoneum noted, denoting possible perforated diverticulitis. 3. A few subcentimeter simple hepatic cysts are noted. 4. Bilateral renal cortical and parapelvic cysts are suggested. 5. Asymmetric deformity of the partially covered right breast implant. Advise clinical correlation and further evaluation with ultrasound if required clinically. Electronically signed by Krista Hua 07-07-2024 03:12 AM Medications Administered Home Medications Medication Instructions Recorded Confirmed Last Taken cholecalciferol (vitamin D3) 25 25 mcg PO QAM 02/14/23 07/08/24 04/18/24 mcg (1,000 unit) tablet (Vitamin D3) coenzyme Q10 200 mg capsule (Co 200 mg PO QAM 02/14/23 07/08/24 04/18/24 Q-10) levothyroxine 112 mcg tablet 112 mcg PO QAM 02/14/23 07/08/24 04/20/24 22:00 losartan 100 mg tablet 100 mg PO QAM 02/14/23 07/08/24 04/19/24 02:00 multivitamin 1 tab PO QAM 02/14/23 07/08/24 04/18/24 acetaminophen 500 mg tablet 500 mg PO Q8H PRN Pain 04/17/24 07/08/24 Unknown dicyclomine 20 mg tablet 20 mg PO QID PRN abdominal pain 05/26/24 07/08/24 Unknown #60 tabs diphenoxylate-atropine 2.5 1 tab PO QID PRN Diarrhea 06/26/24 07/08/24 Unknown mg-0.025 mg tablet potassium chloride 20 mEq 40 meq PO DAILY 06/26/24 07/06/24 Unknown tablet,extended release prochlorperazine maleate 10 mg 10 mg PO Q6H PRN n/v 06/26/24 07/08/24 Unknown tablet ondansetron 8 mg disintegrating 8 mg PO Q8H PRN n/v #30 tabs 07/06/24 07/08/24 Unknown tablet prednisone 20 mg tablet 40 mg PO DAILY 07/06/24 07/08/24 Unknown Active Medications Generic Name Dose Route Start Last Admin Trade Name Raymond PRN Reason Stop Dose Admin Acetaminophen 650 mg 07/09/24 11:48 07/09/24 20:34 Acetaminophen 325 Mg Tab PO 08/08/24 11:47 650 mg Q4H PRN Administration Pain or Fever Pantoprazole Sodium 40 mg in 10 mls @ 5 mls/min 07/07/24 09:00 07/10/24 09:41 Protonix IV 08/06/24 08:59 5 mls/min BID BILLIE Administration Piperacillin Sod/Tazobactam Sod 4.5 gm in 100 mls @ 25 mls/hr 07/07/24 07:00 07/10/24 10:03 Zosyn IV 07/17/24 06:59 Infused Q8H BILLIE Infusion Protocol Levothyroxine Sodium 112 mcg 07/09/24 06:30 07/10/24 06:00 Levothyroxine Sodium 112 Mcg Tablet PO 08/08/24 06:29 112 mcg DAILYBB BILLIE Administration Losartan Potassium 50 mg 07/09/24 14:00 07/10/24 10:10 Losartan Potassium 50 Mg Tab PO 08/08/24 13:59 50 mg QAM BILLIE Administration Morphine Sulfate 4 mg 07/07/24 06:41 07/08/24 03:06 Morphine Sulfate 4 Mg/Ml 1 Ml Carp\\Vial IV 07/21/24 06:40 4 mg Q3H PRN Administration Severe Pain (Scale 7, 8, 9,10) Morphine Sulfate 2 mg 07/07/24 06:41 07/08/24 09:04 Morphine Sulfate 2 Mg/Ml Carp IV 07/21/24 06:40 2 mg Q3H PRN Administration Moderate Pain (Scale 4, 5, 6)
--- NOTE | 2024-07-10 10:42 | Hospitalist Progress Note ---
Date of Service July 10, 2024 Assessment & Plan (1) Diverticular disease of intestine with perforation and abscess: Plan: Metabolic encephalopathy, Sepsis POA Presented with severe abdominal pain with nausea since discharge on 07/05 (admission for dehydration) with recent admission 06/26 - 06/[address] A/P: Acute sigmoid diverticulitis with peridiverticular abscess measuring 34 x 17 mm. Mild Pneumoperitoneum, possible perforated diverticulitis. C.diff negative, other stool studies pending Blood cultures: 10/06 Bacteroides thetaiotaomicr Repeat blood cultures: Pending Continue Zosyn. Dapto discontinued after 48 hours without GP growth Pantoprazole 40 mg IV qam Consult general surgery, Dr. Matos - no indication for urgent surgical intervention - advanced to full liquids, with plan for low fiber for this evening - Scheduled for port removal on Friday 07/13 at 11 AM if patient still inpatient Infectious disease consult - repeat blood cultures, pending - continue Zosyn - port removal if no plan for future chemo Hgb 11.3-->8.3 --> 8.1 possible dilutional component and recent chemo - continue to monitor with AM labs. clinically no signs of active bleeding Pain control: p.o. Tylenol and oxycodone, as needed IV morphine AM CBC and CMP (2) Steroid dependence: Plan: For transaminitis secondary to Pemobrolizumab Home prednisone, decreased to 40 mg daily on 06/25 tolerating p.o. intake, no indication of adrenal insufficiency, return to prednisone 40 mg tomorrow morning Monitor LFTs while inpatient (3) Hypokalemia: Plan: Potassium 3.2 on arrival --> KCl added to IVF on admission Also with Hypomag --> replaced IV K dropped to 3.0, in the setting of national fluids shortage 40 mg twice daily x 3 doses recheck improved to 3.7 (4) Breast cancer: Plan: Has completed of of chemotherapy Consult oncology Dr. Tobin - no further chemo. Plan for outpatient restaging scan and then discuss possible surgery - consider Neupogen if ANC is below 1000 Plan Chronic stable medical conditions: * HTN - resume losartan 100mg * hypothyroid - continue Synthroid Dispo: continued inpatient stay, stable for downgrade to medical DVT proh: Lovenox updated by phone 07/07, 07/09 and in person 07/08 & 07/[address] Sarabia, infectious disease Admission and Anticipated Discharge Date Admission Date: July 07, 2024 Supervising Physician Co-Signing Physician Notes Attending Attestation - Chart reviewed, care plan d/w VALORIE Mota. I agree w/ the hernández components of her documentation. Riley Liriano MD Subjective Feeling better - had a normal bowel movement this morning. advanced diet further today pain is much improved met with ID this morning Feels like she is at her baseline on her feet telemetry sinus rhythm in 70s Review of Systems Review of Systems: All systems reviewed & are unremarkable except as noted in Subjective Physical Exam Physical Exam: General: NAD, VS as above Resp: normal respiratory effort, lungs clear to auscultation CV: RRR, no murmur, Abd: normal bowel sounds, nontender Extremities: Moves all extremities, no edema Neuro: A&O x3, Skin: intact, no lesions noted Results & Data Results & Data Vital Signs (Past 12 Hours) Vital Signs Temp Pulse Pulse Resp BP Pulse Ox O2 Del Method 07/10/24 09:00 70 07/10/24 08:03 98.4 F 79 16 128/75 98 Room Air 07/10/24 02:24 97.9 F 70 18 150/80 H 98 Room Air 07/09/24 22:51 97.9 F 70 18 146/76 H 95 Room Air Laboratory Results cbc and chemistry reviewed PG Care Time/CCT Total # of Minutes Spent Total Time Spent with Patient: Total time spent is greater than 50% in coordination of care (as documented) at patient's floor/unit and/or counseling patient: Coding Level of Care Code 54301 SUB INP/OBS CARE 3/50MIN Diagnoses Diverticular disease of intestine with perforation and abscess K57.80 Steroid dependence F19.20 Hypokalemia E87.6 Breast cancer C50.919 Breast location: unspecified site of breast Estrogen receptor status: unspecified Laterality: unspecified laterality Patient sex: female (4) Breast cancer Breast location: unspecified site of breast Estrogen receptor status: unspecified Laterality: unspecified laterality Patient sex: female Qualified Code(s): C50.919 - Malignant neoplasm of unspecified site of unspecified female breast
--- NOTE | 2024-07-11 00:05 | Communication Note ---
Date of Service: July 11, 2024 Galilea is a 83F w/ PMH of breast cancer on chemotherapy, pancytopenia of chemotherapy, metabolic encephalopathy, and diverticular disease who is admitted for diverticulitis with perforation. Patient noted by nursing to be newly hypotensive and tachycardic. Patient meeting criteria for sepsis given known diverticulitis. Septic workup ordered. IVFs ordered. Patient not noting any abdominal pain at time of vitals change. No rebound or guarding. Decision made to hold off on repeat CT AP and pend fluids/labs. Vitals improved following IVFs. Lactate negative, procal negative, CRP elevated. CBC/CMP largely unchanged. General surgery evaluated patient at bedside overnight, noted some abdominal pain. Patient changed to NPO. Considering CT AP at this time. Continue mIVF for another liter while NPO. Will repeat CT AP due to change in abdominal pain and vitals overnight. Discussed with surgery, who are in agreement with repeat imaging. Continue Abx as ordered. Resident Activity Tracking Resident Involvement: Resident Care Provided Care Provided: Adult [facility] Medicine
[2024-07-11 01:24] LABS: Hematocrit (blood only) 23.8 % (37.0-47.0); Hemoglobin 8.2 g/dl (12.0-16.0); Mean Corpuscular Hemoglobin 31.3 pg (25.0-34.0); Mean Corpuscular Hgb Conc 34.5 g/dL (32.0-36.0); Mean Corpuscular Volume 90.8 fL (80.0-100.0); Mean Platelet Volume 10.7 fL (9.4-12.4); Platelet Count 196 K/uL (130-400); RDW Coefficient of Variation 17.6 % (11.5-14.5); RDW Standard Deviation 58.2 fL (36.4-46.3); Red Blood Count 2.62 M/uL (4.20-5.40); White Blood Count 4.19 K/ul (4.8-10.8)
[2024-07-11] MEDS: SODIUM CHLORIDE 0.9% 500 ML IV SCH (01:39)
[2024-07-11 01:48] LABS: BUN Creatinine Ratio 15.9 (10-20); C Reactive Protein 3.88 mg/dl (0-0.5); Calcium 7.6 mg/dl (8.6-10.3); Creatinine Clr Calc Pharmacy 49.6 ml/min; Potassium 3.5 mmol/L (3.5-5.1)
--- NOTE | 2024-07-11 05:30 | Surgery Progress Note ---
Date of Service July 11, 2024 Assessment & Plan (1) Diverticulitis of colon with perforation: Plan: Patient has been admitted on the hospitalist service. From surgery perspective we recommend the following: CT scan abdomen pelvis on 07/07/2024 showed the patient had sigmoid diverticulitis with a peridiverticular abscess. Patient has been treated initially in conservative managed with bowel rest and antibiotics in the form of Zosyn She has shown clinical improvement since admission and has her diet advanced all the way to solids Patient does note right-sided abdominal pain and was febrile last night Would continue antibiotics in the form of Zosyn Would back down to n.p.o. status for the present time Check a.m. labs when available I discussed with the primary service and they are reinstituting intravenous fluids Primary service is also performing repeat CT scan abdomen pelvis due to events noted last nightwe will follow-up for results Admission and Anticipated Discharge Date Admission Date: July 07, 2024 Supervising Physician Co-Signing Physician Notes Patient seen and examined, labs and imaging reviewed, agree with above. On chemotherapy admitted with diverticulitis with small abscess. Was doing well on IV antibiotics, however yesterday she developed increased pain overnight with some fevers and tachycardia. 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 On exam she is afebrile with stable vitals. Her abdomen is soft, tender to palpation in bilateral lower quadrants, no guarding or rebound. CT scan personally viewed and interpreted and agree with the assessment of increase in size of the fluid collection along with what ap pears to be a communicating area to the right of midline. There is some dilation and inflammation of the appendix, though this appears to be secondary to the diverticulitis. She also has distention of her gallbladder but no overt signs of cholecystitis. Diverticulitis with enlargement and signs of abscess Discussed this with radiology, this does not appear to be amenable to drainage at our facility, but may be amenable to drainage at a tertiary facility with more resources. Will discuss with medicine. Continue n.p.o., IV antibiotics Subjective Patient is currently resting comfortably in bed. She does note some right-sided abdominal pain. She notes that she tolerated solid food without worsening abdominal pain. She does report having a fever last night. She does note her bowels are moving. No other complaints offered at this time. Physical Exam Gastrointestinal (Abdomen): Abdomen is soft without distention. There is no rebound tenderness or guarding. Patient does have pain with palpation of the abdomen which is greatest on the right side of her abdomen just lateral to the umbilicus. Results & Data Vital Signs (Past 12 Hours) Vital Signs Temp Pulse Resp BP Pulse Ox O2 Del Method 07/11/24 04:31 36.6 C 87 14 147/75 H 96 Room Air 07/11/24 01:50 37.6 C H 07/10/24 23:22 37.8 C H 97 H 20 162/80 H 97 Room Air 07/10/24 20:11 37.0 C 88 18 160/80 H 94 Room Air 07/10/24 19:45 Room Air PG Care Time/CCT Total # of Minutes Spent Total Time Spent with Patient: Total time spent is greater than 50% in coordination of care (as documented) at patient's floor/unit and/or counseling patient: Coding Level of Care Code 23878 SUB INP/OBS CARE 09/26MIN Diagnoses Diverticulitis of colon with perforation K57.20
[2024-07-11] MEDS: SODIUM CHLORIDE 0.9% 1,000 ML IV SCH (06:15)
[2024-07-11 06:53] LABS: Hemoglobin 8.9 g/dl (12.0-16.0); Immature Granulocytes # (auto) 0.08 K/uL (0.01-0.20); Immature Granulocytes % (auto) 1.9 %; Lymphocytes # (auto) 1.02 K/uL (1.20-3.40); Lymphocytes % (auto) 24.6 %; Mean Corpuscular Hemoglobin 30.8 pg (25.0-34.0); Mean Corpuscular Hgb Conc 34.2 g/dL (32.0-36.0); Mean Platelet Volume 10.5 fL (9.4-12.4); Monocytes # (auto) 0.18 K/uL (0.11-0.59); Monocytes % (auto) 4.3 %; Neutrophils # (auto) 2.86 K/uL (1.40-6.50); Neutrophils % (auto) 69.2 %; Platelet Count 203 K/uL (130-400); RDW Coefficient of Variation 17.6 % (11.5-14.5); RDW Standard Deviation 57.2 fL (36.4-46.3); Red Blood Count 2.89 M/uL (4.20-5.40); White Blood Count 4.14 K/ul (4.8-10.8)
[2024-07-11 07:19] LABS: Albumin Globulin Ratio 1.1 (0.9-2); Albumin Level 2.5 gm/dl (3.4-5.0); BUN Creatinine Ratio 14.3 (10-20); Bilirubin,Total 0.5 mg/dl (0.2-1.0); Calcium 7.7 mg/dl (8.6-10.3); Creatinine Clr Calc Pharmacy 52.9 ml/min; Globulin 2.2 gm/dl (2.5-4.0); Potassium 3.5 mmol/L (3.5-5.1); Total Protein 4.7 gm/dl (6.0-8.3)
[2024-07-11] MEDS: PANTOprazole 40 MG/10 ML SYR IV SCH (07:54)
[2024-07-11] MEDS: LOSARTAN POTASSIUM 50 MG TAB PO SCH (08:00)
[2024-07-11] MEDS: predniSONE 20 MG TAB PO SCH (08:00)
[2024-07-11] MEDS: OPTIRAY 320 100ml IV ONE (09:58)
--- NOTE | 2024-07-11 10:43 | CT Scan Report ---
CT OF THE ABDOMEN AND PELVIS WITH CONTRAST CLINICAL HISTORY: Increased Abd pain, known diverticular perforation COMPARISON STUDY: CT of the abdomen and pelvis July 07, 2024. Right upper quadrant ultrasound Oct [id number]. TECHNIQUE: Following IV administration of 93 mL of Optiray, axial images of the abdomen and pelvis we re obtained from the lung bases to the proximal femurs. Images were reviewed in the axial, sagittal, and coronal planes. IV contrast was administered without complication. Automated exposure control wa s utilized for the study. A dose lowering technique was utilized adhering to the principles of ALARA . CT DOSE: 798.71 mGy.cm FINDINGS: Small bilateral pleural effusions have developed. Associated subpleural opacities represent atelectasis. A small to moderate amount of pneumoperitoneum has increased since CT of July 07. There is no biliary or pancreatic ductal dilatation. Gallbladder distention has developed. The sp tiana, adrenal glands and kidneys are unremarkable. There are bilateral renal parapelvic cysts. There is no hydronephrosis. There is no evidence for a bowel obstruction. Sigmoid diverticulosis is noted. A fluid and gas containing collection along the lateral aspect of the proximal sigmoid colon has incr eased in size since CT of July 07, 2024. This now measures 3.6 x 2.6 cm, previously 3.3 x 1.4 cm. Moderate adjacent inflammation has increased. A small amount of associated ascites has also increased . A 3.5 x 2 cm right pelvic fluid and gas containing collection has developed. This may communicate w ith the larger collection. Sigmoid colon wall thickening is again noted. Images of the pelvis are deg raded by streak artifact from bilateral hip arthroplasties. The appendix is mildly dilated with wall thickening, measuring 1 cm in caliber. There is linear hyperdense material within the proximal append ix. IMPRESSION: 1. Findings consistent with worsening of perforated sigmoid diverticulitis since CT of July 07. Mild increase in size of a 3.6 x 2.6 cm diverticular abscess along the lateral aspect of the prox imal sigmoid colon with increase in associated inflammation, ascites and a small to moderate amount o f pneumoperitoneum. Interval development of a small gas and fluid containing right pelvic collection which may communicate with the larger abscess 2. Mildly dilated appendix with wall thickening. This is likely secondary to diverticulitis. 3. Increase in gallbladder distention which could be correlated with right upper quadrant pain and ul trasound as indicated. 4. Interval development of small bilateral pleural effusions. ACT 112: Negative or not required by law. Electronically signed by: Amor Rodriguez M.D. 07/11/2024 10:41 AM
[2024-07-11] MEDS ORDERED: HEPARIN 100 UNIT/ML 5ML FLUSH FLUSH PRN (11:21)
--- NOTE | 2024-07-11 15:08 | Hospitalist Progress Note ---
Date of Service July 11, 2024 Assessment & Plan (1) Diverticular disease of intestine with perforation and abscess: Plan: Metabolic encephalopathy, Sepsis POA Presented with severe abdominal pain with nausea since discharge on 07/05 (admission for dehydration) with recent admission 06/26 - 06/[address] A/P: Acute sigmoid diverticulitis with peridiverticular abscess measuring 34 x 17 mm. Mild Pneumoperitoneum, possible perforated diverticulitis. C.diff negative, other stool studies pending Blood cultures: 10/06 Bacteroides thetaiotaomicr Repeat blood cultures 07/09: no growth at 24 hours Repeat blood cultures 07/11: Pending Continue Zosyn. Dapto discontinued after 48 hours without GP growth Pantoprazole 40 mg IV qam Consult general surgery, - Scheduled for port removal on Friday 07/13 at 11 AM if patient still inpatient - patient with acute decompensation overnight 07/10 with fevers and pain. Repeat CT showing enlarging abscess, recommend transfer to [facility]. Infectious disease consult - repeat blood cultures, pending - continue Zosyn - port removal if no plan for future chemo Pain control: p.o. Tylenol and oxycodone, as needed IV morphine AM CBC and CMP, CRP 07/11: initial plan was for transfer to [place] and patient was accepted, however patient is not willing ostomy and is leaning towards hospice. However there is a family involved that will be flying in this evening. patient understands that she is in charge of her body and gets to make decisions but her family's opinions weigh heavily. did offer her the option of transfer for possible, however unlikely IR drainage and if not able to perform she could choose hospice at that time instead of the major surgery for colostomy. To gether we decided through shared decision making that we will continue the current antibiotics and give her some time for family to arrive and to be sure about her decision. She understands that if she were to decompensate acutely that we may not be able to get her emergently to surgery in [place] at that time. She desires no further escalation of care at this time. transfer to [place] was canceled. (2) Steroid dependence: Plan: For transaminitis secondary to Pemobrolizumab Home prednisone, decreased to 40 mg daily on 06/25 Continue home prednisone (3) Hypokalemia: Plan: Potassium 3.2 on arrival --> KCl added to IVF on admission Also with Hypomag --> replaced IV K improved and stable. (4) Breast cancer: Plan: Has completed 9 of of chemotherapy Consult oncology Dr. Tobin - no further chemo. Plan for outpatient restaging scan and then discuss possible surgery - consider Neupogen if ANC is below 1000 Plan Chronic stable medical conditions: * HTN - resume losartan 100mg * hypothyroid - continue Synthroid Dispo: continued inpatient stay DVT proh: scds updated by phone 07/07, 07/09 and in person 07/08 & 07/10, & 07/11 Admission and Anticipated Discharge Date Admission Date: July 07, 2024 Supervising Physician Co-Signing Physician Notes Attending Attestation - Chart reviewed, care plan d/w VALORIE Mota. I agree w/ the hernández components of her documentation. Events of the day reviewed with Ms Mota. Repeat CT was obtained due to worsening pain overnight. CT with results as follows: IMPRESSION: 1. Findings consistent with worsening of perforated sigmoid diverticulitis since CT of July 07, 2024. Mild increase in size of a 3.6 x 2.6 cm diverticular abscess along the lateral aspect of the proximal sigmoid colon with increase in associated inflammation, ascites and a small to moderate amount of pneumoperitoneum. Interval development of a small gas and fluid containing right pelvic collection which may communicate with the larger abscess 2. Mildly dilated appendix with wall thickening. This is likely secondary to diverticulitis. 3. Increase in gallbladder distention which could be correlated with right upper quadrant pain and ultrasound as indicated. 4. Interval development of small bilateral pleural effusions. Plan was initially to transfer patient to [place] for IR consultation and possible IR drainage of diverticular abscess vs colorectal surgery consultation with hemicolectomy & ostomy creation. However, transfer now canceled as patient is leaning towards comfort-based approach/Hospice. Riley Liriano MD Subjective Patient seen initially this morning prior to being evaluated by surgery. Is having some mild pain but nothing severe Revisited later this afternoon with at bedside to discuss the recommendation from surgery that was recommending transfer to [place] for IR dr shah. Patient and her were agreeable to this. I spoke with [facility] about Ms. Quinn and they advised that a IR drainage would be unlikely and that she would need a partial colectomy with an ostomy. They had agreed to accept the patient but wanted to make sure that she was okay with this. I went back to discuss this with the patient, her had left the room. I did explain to her her options and she did not want the ostomy but was feeling like she had no other choice. I discussed that the alternative would be going for hospice measures. She wanted to discuss this with her I again visited Ms. Quinn with her in the room and their eldest daughter on the phone. and eldest daughter are really wanting her to go to [place] to at least hear the options but Ms. Quinn has decided that she would like to pursue hospice. Pat states to me that she has had enough" I will just with my boobs on" daughter's on flying in the [place] will be in town around 11 PM this evening Review of Systems Review of Systems: All systems reviewed & are unremarkable except as noted in Subjective Physical Exam Physical Exam: General: NAD, VS as above Resp: normal respiratory effort, lungs clear to auscultation CV: RRR, no murmur, Abd: normal bowel sounds, mild right lower quadrant and left lower quadrant tenderness Extremities: Moves all extremities, no edema Neuro: A&O x3, Skin: intact, no lesions noted Results & Data Results & Data Vital Signs (Past 12 Hours) Vital Signs Temp Pulse Pulse Resp BP Pulse Ox O2 Del Method 07/11/24 11:23 97.9 F 90 24 140/88 95 Room Air 07/11/24 07:45 Room Air 07/11/24 07:37 97.5 F L 78 20 135/78 95 Room Air 07/11/24 07:14 97.5 F L 92 H 20 164/96 H 96 Room Air 07/11/24 04:31 97.9 F 87 14 147/75 H 96 Room Air Laboratory Results CBC, chemistry, CRP reviewed Repeat blood cultures reviewed Diagnostic Findings repeat CT abdomen pelvis reviewed PG Care Time/CCT Total # of Minutes Spent Total Time Spent with Patient: Total time spent is greater than 50% in coordination of care (as documented) at patient's floor/unit and/or counseling patient: Coding Level of Care Code 11609 SUB INP/OBS CARE 3/50MIN Diagnoses Diverticular disease of intestine with perforation and abscess K57.80 Steroid dependence F19.20 Hypokalemia E87.6 Breast cancer C50.919 Breast location: unspecified site of breast Estrogen receptor status: unspecified Laterality: unspecified laterality Patient sex: female (4) Breast cancer Breast location: unspecified site of breast Estrogen receptor status: un specified Laterality: unspecified laterality Patient sex: female Qualified Code(s): C50.919 - Malignant neoplasm of unspecified site of unspecified female breast
[2024-07-11 20:51] VITALS: BP 167/90; PULSE 73; RESP 15; TEMP 97.9; O2SAT 98
--- NOTE | 2024-07-12 05:16 | Surgery Progress Note ---
Date of Service July 12, 2024 Assessment & Plan (1) Diverticulitis of colon with perforation: Plan: Patient has been admitted on the hospitalist service. From surgery perspective we recommend the following: CT scan abdomen pelvis on 07/07/2024 showed the patient had sigmoid diverticulitis with a peridiverticular abscess. Due to fevers and worsening abdominal pain noted on 07/11/2024 the patient underwent repeat CT scan on this date which shows the patient had worsening of her perforated sigmoid diverticulitis Initial plan was for patient be transferred to [facility] for consideration of IR drainage versus surgery Due to concern the patient may require a colostomy she does not wish to pursue transfer to [place] for possible surgical intervention. She also does not wish any further escalation of her care at this time Will continue treatment with antibiotics in form of Zosyn Maintain n.p.o. status for the present time Currently we are awaiting further input from patient's family as she is potentially considering moving her care towards hospice No further surgery recommendations at this time Check a.m. labs when available Admission and Anticipated Discharge Date Admission Date: July 07, 2024 Supervising Physician Co-Signing Physician Notes Patient seen and examined, agree with above. Admitted with diverticulitis with small abscess in setting of chemotherapy for metastatic breast cancer. Repeat CT yesterday showed enlargement of the abscess with another area of abscess that appears to communicate but located more in the right lower quadrant. Not amenable to IR drainage at our facility, but potentially at a tertiary facility. Medicine was coordinating transfer but the patient stated her wishes to withdraw all care and proceed with hospice placement. This morning she is having some tenderness but no significant pain, no fevers. She is refusing all labs and vital signs. She is no longer on antibiotics or IV fluids. Her daughter and are in the room. We had a long discussion regarding her current diagnosis of an enlargement of the abscess that may or may not be a bit amenable to drainage. We also had a discussion of options of care to include continued antibiotics, transfer for potential IR drainage, or Valenzuela's procedure. She is very hesitant to have any type of surgery. I did suggest that they consider speaking with palliative care tomorrow as she can help discussed goals of care in this difficult situation. No surgical intervention desired at this time Patient is currently pursuing hospice Would recommend palliative care consultation tomorrow Surgery will follow peripherally as patient does not desire any surgical intervention, call with questions or concerns If pursuing palliation, patient may begin to advance diet as tolerated, otherwise could consider clear liquids for now Subjective Patient is currently resting comfortably in bed. She denies any fevers, shakes, or chills. She denies any nausea or vomiting. She continues to report some abdominal pain although she reports it is minor this morning and is located primarily on the right side of her abdomen just lateral to the umbilicus. Physical Exam Gastrointestinal (Abdomen): Abdomen is soft and nondistended. There is no rebound tenderness or guarding with patient did have pain with palpation to the lateral of the umbilicus on the right side. Results & Data Vital Signs (Past 12 Hours) Vital Signs Temp Pulse Resp BP Pulse Ox O2 Del Method 07/11/24 20:50 36.6 C 73 15 167/90 H 98 Room Air 07/11/24 20:03 Room Air PG Care Time/CCT Total # of Minutes Spent Total Time Spent with Patient: Total time spent is greater than 50% in coordination of care (as documented) at patient's floor/unit and/or counseling patient: Coding Level of Care Code 82000 SUB INP/OBS CARE 09/26MIN Diagnoses Diverticulitis of colon with perforation K57.20
--- NOTE | 2024-07-12 13:54 | Discharge Summary ---
Discharge Summary Date of Service July 12, 2024 Principal Dx & Hospital Course #1 = Principal Diagnosis (1) Diverticular disease of intestine with perforation and abscess: Metabolic encephalopathy, Sepsis POA Presented with severe abdominal pain with nausea since discharge on 07/05 (admission for dehydration) with recent admission 06/26 - 06/[address] A/P: Acute sigmoid diverticulitis with peridiverticular abscess measuring 34 x 17 mm. Mild Pneumoperitoneum, possible perforated diverticulitis. Pat was admitted and treated with Zosyn, did have a positive blood culture for bacteroides thetaiotaomicr. Infectious disease was following, with repeat blood cultures pending. Pat became febrile overnight 07/[address] scan showed enlarging on the abscess. Discussed with surgery who recommended transfer to Tertiary care - I spoke with the physician at [facility] who said the abscess would not be amendable to IR drainage and would result in an Ostomy. When relayed this to the patient she would not want this and would want hospice. Multiple discussions with patient, and daughter and at the time of discharge everyone is in agreement for home with hospice. Case management has arranged [facility]. Hospice meds sent: oxycodone, morphine concentrate, ativan, zyprexa, zofran, robinul Patient has agreed to stay of Augmentin BID to help treat the diverticulits Patient does have pending blood cultures at time of discharge. Initial plan was for port removal on 07/13 but this will remain in place. 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 (4) Breast cancer: Has completed 9 of of chemotherapy Consult oncology Dr. Tobin - no further chemo. Plan for outpatient restaging scan and then discuss possible surgery - however now persuing hospice (5) Bacteremia: (6) Hospice care patient: Plan Chronic stable medical conditions: * HTN - continue losartan 100mg as pt desires * hypothyroid - continue Synthroid as pt desires Dispo: home with hospice today updated by phone 07/07, 07/09 and in person 07/08 & 07/10, & 07/11 Revisted the bedside multiple times today for dicussions with Galilea, her and her daughter Notes For Next Care Provider Home with hospice. Admission HPI Per Admitting Provider The patient is an 83-year-old female with a past medical history including breast cancer having completed 9 of 10 of chemotherapy, steroid dependence, metabolic encephalopathy, breast implant status, vitamin D deficiency, hypothyroidism, and hypertension. She had admission from 06/26- 06/28 for sepsis due to UTI, and then from 07/03-07/05 for volume depletion and dehydration, managed with IV fluids. CT scan performed in the emergency department this evening shows acute sigmoid diverticulitis with peridiverticular abscess, and mild pneumoperitoneum suggestive of perforated diverticulum. Discharge Exam General: NAD, vitals as above, lying in bed, appears comfortable CV: well perfused extremities: moves all extremities not anxious AxO x4 Discharge Plan Discharge Items Patient Disposition: Hospice - Home Reason For Visit: PERFORATED DIVERTICULITIS, PNEUMOPERITONEUM Discharge Diagnosis: Perforated Diverticulitis Activity: As commented below Activity Comment: whatever feels comfortable Weightbearing: Full weightbearing Non-emergency contact: Specialist Call non-emergency contact if: you have any medication questions, your symptoms worsen, your pain is not controlled and your temperature is above 101.5 Follow-up/Referrals: Delmi Buchanan, [Primary Care Provider] - Diet: Regular Addtl Attending Provider Instructions: Ms. Quinn, You were hospitalized after having worsening abdominal pain and found to have diverticulitis with an abscess. Unfortunately, things have progressed and would require major surgery and you have opted for hospice. I have sent in multiple medications below to help with this transition. If at any time you have any questions about your medical care, the hospice agency is going to be your first call. They will help with medication adjustment, pain control, any new symptoms, etc. They are available 25/03. Please do not hesitate to call them. Medications: * Augmentin - this in an antibiotic to hopefully prevent the infection from worsening too quickly * oxycodone - this is pain medication, take 1-2 tabs every 4 hours as needed for pain * morphine concentrate - this can be used for pain or air hunger. This is a liquid so can be used if not swallowing well * Ativan - this can be used for increase anxiety or agitation * Robinul - this is used if you are having trouble with secretions * zyprexa - this can be taken at night to help with sleep or agitation * zofran - used for nausea for now I have continued your home medications. You can decide to stop taking these at any time. Know that there are no rules on hospice - you can take the meds you want, eat the food that you want, and do the activities that you want. We are all here to focus on your quality of life. Pending Studies at Discharge: Yes (blood cultures ) Stand-Alone Forms: [facility] Medications and DC Order Prescriptions: New amoxicillin-pot clavulanate 875-125 mg tablet 1 tab PO BID Qty: 28 0RF lorazepam [Ativan] 1 mg tablet 1 mg PO Q8H PRN (Reason: anxiety or agitation) Qty: 30 0RF morphine concentrate 100 mg/5 mL (20 mg/mL) solution 5 mg PO Q3H PRN (Reason: pain or air hunger) Qty: 120 0RF oxycodone 5 mg tablet 5 mg PO Q4H PRN (Reason: pain) Qty: 30 0RF olanzapine [Zyprexa] 5 mg tablet 5 mg PO HS PRN (Reason: insomnia or agitation ) Qty: 14 0RF glycopyrrolate [Robinul] 1 mg tablet 1 mg PO Q2H PRN (Reason: secretions) Qty: 20 0RF ondansetron 8 mg tablet,disintegrating 8 mg PO Q8H PRN (Reason: nausea and vomiting) Qty: 30 0RF Continued dicyclomine 20 mg tablet 20 mg PO QID PRN (Reason: abdominal pain) Qty: 60 0RF Rx Instructions: per pharmacy last picked up in May ondansetron 8 mg tablet,disintegrating 8 mg PO Q8H PRN (Reason: n/v) Qty: 30 0RF Rx Instructions: last picked up in april 2024 multivitamin Tablet 1 tab PO QAM Rx Instructions: Unable to verify OTC meds at this date/time losartan 100 mg Tablet 100 mg PO QAM levothyroxine 112 mcg Tablet 112 mcg PO QAM coenzyme Q10 [Co Q-10] 200 mg Capsule 200 mg PO QAM Rx Instructions: Unable to verify OTC meds at this date/time cholecalciferol (vitamin D3) [Vitamin D3] 25 mcg (1,000 unit) Tablet 25 mcg PO QAM Rx Instructions: Unable to verify OTC meds at this date/time acetaminophen 500 mg Tablet 500 mg PO Q8H PRN (Reason: Pain) Rx Instructions: Unable to verify OTC meds at this date/time diphenoxylate-atropine 2.5-0.025 mg tablet 1 tab PO QID PRN (Reason: Diarrhea) prochlorperazine maleate 10 mg tablet 10 mg PO Q6H PRN (Reason: n/v) Rx Instructions: last picked up in april potassium chloride 20 mEq tablet extended release 40 meq PO DAILY Rx Instructions: Per pharmacy the pt last filled this 04/2024 x15 day supply but with refills. Unable to verify at this date/time if pt still has some from april prednisone 20 mg tablet 40 mg PO DAILY Rx Instructions: picked up jun 18 day supply Discharge Orders: Discharge Order (Routine); Ordered 07/12/24 Ordered By: Shanae Mota Admission Data Admit Date/Time: 07/07/24 04:05 Attending Provider: Riley Liriano Admit Provider: Jimbo Johnson Primary Care Provider: Delmi Buchanan Other Providers: Richard Matos; Teagan Tobin; Rojelio Sorto Other Interventions: Discharge Summary Assessment (RN) Last Done: 07/12/24 13:29 Hospital Stay Data Consultations 07/07/24 03:32 ED Decision to Admit Stat 07/07/24 04:14 Consult Oncology Routine 07/07/24 04:16 Consult General Surgery Routine 07/07/24 06:41 Consult General Surgery Routine 07/09/24 10:16 Consult Infectious Diseases Routine Procedures Performed Operation Date: 07/13/24 11:00 <No data on this case meets the specified criteria> Diagnostic Imagining Performed 07/07/24 00:18 CT Abd and Pelvis [CT abd pelvis IV con only] Stat 07/11/24 05:41 CT abd pelvis IV con only Urgent Pending Results Patient Have Any Pending Studies at Discharge: Yes (blood cultures ) Discharge Instructions Given to Patient (Per Discharging Provider) Ms. Quinn, You were hospitalized after having worsening abdominal pain and found to have diverticulitis with an abscess. Unfortunately, things have progressed and would require major surgery and you have opted for hospice. I have sent in multiple medications below to help with this transition. If at any time you have any questions about your medical care, the hospice agency is going to be your first call. They will help with medication adjustment, pain control, any new symptoms, etc. They are available 25/03. Please do not hesitate to call them. Medications: * Augmentin - this in an antibiotic to hopefully prevent the infection from worsening too quickly * oxycodone - this is pain medication, take 1-2 tabs every 4 hours as needed for pain * morphine concentrate - this can be used for pain or air hunger. This is a liquid so can be used if not swallowing well * Ativan - this can be used for increase anxiety or agitation * Robinul - this is used if you are having trouble with secretions * zyprexa - this can be taken at night to help with sleep or agitation * zofran - used for nausea for now I have continued your home medications. You can decide to stop taking these at any time. Know that there are no rules on hospice - you can take the meds you want, eat the food that you want, and do the activities that you want. We are all here to focus on your quality of life. Supervising Physician Co-Signing Physician Notes Attending Attestation and Discharge Note: Chart reviewed in detail, discharge care plan d/w VALORIE Mota. I agree w/ the hernández components of her discharge documentation. Of note - I did not perform a bedside visit or perform a physical examination on day of discharge. 83yo female with breast cancer s/p chemotherapy, HTN, hypothyroidism, and recent hospitalization from 07/03 to 07/05 for dehydration & chemotherapy induced pancytopenia. She presented this admission with c/o severe abdominal pain and nausea that had been worsening since hospital discharge on 07/05. CT a/p on day of admission showed sigmoid diverticulitis with perforation & abscess. Admitted for IV antibiotic therapy, surgical consultation, and pain control. Evening of 07/10 into the AM of 07/11 she had worsening abd pain despite IV antibiotic therapy. Repeat CT showed -- "Findings consistent with worsening of perforated sigmoid diverticulitis since CT of July 07, 2024. Mild increase in size of a 3.6 x 2.6 cm diverticular abscess along the lateral aspect of the proximal sigmoid colon with increase in associated inflammation, ascites and a small to moderate amount of pneumoperitoneum. Interval development of a small gas and fluid containing right pelvic collection which may communicate with the larger abscess." Plan was initially to transfer patient to [place] for IR consultation and possible IR drainage of diverticular abscess vs colorectal surgery consultation with hemicolectomy & ostomy creation. However, the patient changed her mind and instead wanted to pursue hospice/comfort. After extensive discussion between the hospitalist team & the patient/patient's family she ultimately discharged to home enrolled in Hospice. She will finish a course of PO augmentin at home, and was also provided comfort meds including roxanol, zyprexa, ativan, etc. Riley Liriano MD Total Time Total Time Spent Total Time Spent (In Minutes): Time spent day of discharge 60 minutes including direct patient care, medication reconciliation, documentation, review of labs and images, and coordination of care. Coding Level of Care Code 89699 INP/OBS DISCH >30 MIN Diagnoses Diverticular disease of intestine with perforation and abscess K57.80 Steroid dependence F19.20 Hypokalemia E87.6 Breast cancer C50.919 Breast location: unspecified site of breast Estrogen receptor status: unspecified Laterality: unspecified laterality Patient sex: female Bacteremia R78.81 Hospice care patient Z51.5
[2024-07-12] MEDS: oxyCODONE HCL IR 5 MG TAB (IMMEDIATE RELEASE) PO PRN (16:27)
[2024-07-12] MEDS: ONDANSETRON 4 MG OD TAB PO STA (16:27)
== END 2024-07-12 17:13 | disposition hospice, home (50) | DRG 871 ==
LOC: ED 23:34 → 2S 07-07 04:05 → SUATTDRO 07-07 04:05 → 2S 07-07 06:00 → 3N 07-10 13:08